=== PATIENT | female | born 1955 | race Caucasian/White ===

== ENCOUNTER 2020-09-02 14:12 | Outpatient (REF) | payer MEDICARE, SELFPAY ==
--- NOTE | 2020-09-02 | MM_ITS ---
EXAMINATION: MM SCREENING DIGITAL BREAST TOMOSYNTHESIS, BILATERAL CLINICAL INFORMATION: Screening. Asymptomatic. The lifetime risk of breast cancer based on the Tyrer-Cuzick Model is 5%. COMPARISON: Mammography: 05/04/2019, 09/11/2017 TECHNIQUE: Digital breast tomosynthesis is performed in both the craniocaudal and mediolateral oblique views along with computer-aided detection (CAD). Synthesized 2D images are generated from the tomosynthesis. FINDINGS: There are scattered areas of fibroglandular density (ACR BI-RADS breast composition Category b). There are no significant masses, abnormal calcifications, or other abnormalities. No significant changes from prior exam. IMPRESSION: No mammographic evidence of malignancy. ASSESSMENT: BI-RADS 1: Negative RECOMMENDATION: Routine annual mammography screening. This patient's information was entered into a reminder system with a target due date for their next mammogram.
== END 2020-09-02 14:13 | disposition home or self-care (01) ==
LOC: HO.MAMMO 14:12
PROVIDERS: PCP Radiology Diagnostic Radiology; Visit Provider Internal Medicine
DX: Z12.31 Encounter for screening mammogram for malignant neoplasm of breast (principal)
CPT/HCPCS: 77063; 77067

== ENCOUNTER → 2020-09-13 10:09 | Outpatient (BNVA) | payer MEDICARE, SELFPAY | PROVIDERS: PCP Internal Medicine; Referring Provider Internal Medicine; Visit Provider Orthopaedic Surgery | DX: M70.61 Trochanteric bursitis, right hip (principal); M16.11 Unilateral primary osteoarthritis, right hip; M54.30 Sciatica, unspecified side | CPT/HCPCS: 20610; 99214; J1040 ==

== ENCOUNTER 2020-10-03 12:06 | Outpatient (REF) | payer MEDICARE, SELFPAY ==
[2020-10-03 13:39] LABS: MANUAL DIFF FLAG NO
[2020-10-03 13:51] LABS: Basophils Absolute Auto 0.1 X10*3/uL (0.0-0.2); Basophils Percent Auto 0.8 % (0-2); Eosinophils Absolute Auto 0.2 X10*3/uL (0.0-0.4); Eosinophils Percent Auto 2.5 % (0-4); Hematocrit 44.4 % (37-47); Hemoglobin 14.2 g/dl (12.0-16.0); Imm Gran Abs Auto 0.02 X10*3/uL (0.00-0.03); Imm Gran Pct Auto 0.3 % (0.0-0.4); Lymphocytes Percent Auto 31.3 % (20-40); Mean Corpuscular Volume 87.6 fL (80-98); Mean Platelet Volume 9.4 fL (9.4-12.3); Monocytes Absolute Auto 0.5 X10*3/uL (0.1-1.2); Monocytes Percent Auto 7.2 % (2-11); Neutrophils Absolute Auto 3.8 X10*3/uL (2.0-8.3); Neutrophils Percent Auto 57.9 % (45-73); Platelet Count 244 X10*3/uL (160-400); Red Blood Count 5.07 X10*6/uL (4.20-5.50); Red Cell Distribution Width 13.3 % (11.0-16.0); White Blood Count 6.5 X10*3/uL (4.8-10.8)
[2020-10-03 14:29] LABS: Alanine Aminotransferase 25 U/L (0-31); Albumin Level 4.5 g/dL (3.5-5.0); Alkaline Phosphatase 99 U/L (39-117); Amylase 72 U/L (28-100); Anion Gap 12 (12-20); Aspartate Amino Transferase 24 U/L (5-31); Bilirubin Total 0.4 mg/dL (0.0-1.0); Blood Urea Nitrogen 14 mg/dL (9-16); C Reactive Protein 0.15 mg/dL (< or = 0.50); Calcium 9.3 mg/dL (8.4-10.2); Carbon Dioxide 29 mmol/L (22-29); Chloride 101 mmol/L (96-108); Estimated Glomerular Filt Rate > 60; Glucose Random 86 mg/dL (60-115); Lipase 31 U/L (8-78); Potassium 4.8 mmol/l (3.3-5.1); Sodium 137 mmol/L (135-145)
[2020-10-04 07:55] LABS: FIT Int Ctl YES; FIT1 NEGATIVE (NEGATIVE); FIT2 NEGATIVE (NEGATIVE)
== END 2020-10-03 12:07 | disposition home or self-care (01) ==
LOC: HO.LAB 12:06
PROVIDERS: PCP Internal Medicine; Visit Provider Internal Medicine Gastroenterology
DX: K92.1 Melena (principal)
CPT/HCPCS: 36415; 80053; 82150; 82274; 83690; 85025; 86140

== ENCOUNTER 2020-10-04 12:24 | Outpatient (REF) | payer MEDICARE, SELFPAY | END 2020-10-04 12:25 | disposition home or self-care (01) | LOC: HO.LNP 12:24 | PROVIDERS: Visit Provider Internal Medicine Gastroenterology | DX: K92.1 Melena (principal) | CPT/HCPCS: 87338 ==

== ENCOUNTER 2020-11-01 13:14 | Outpatient (REF) | payer MEDICARE, SELFPAY | END 2020-11-01 13:15 | disposition home or self-care (01) | LOC: HO.LAB 13:14 | PROVIDERS: Visit Provider Internal Medicine | DX: Z20.828 Contact with and (suspected) exposure to other viral communicable diseases (principal) | CPT/HCPCS: C9803; U0003 ==

== ENCOUNTER → 2021-01-25 12:59 | Outpatient (BNVA) | payer MEDICARE, SELFPAY | PROVIDERS: PCP Internal Medicine; Visit Provider Orthopaedic Surgery | DX: M17.11 Unilateral primary osteoarthritis, right knee (principal) | CPT/HCPCS: 20610; 99212; J1040 ==

== ENCOUNTER 2021-03-13 10:27 | Outpatient (REF) | payer MEDICARE, SELFPAY ==
[2021-03-13 11:58] LABS: MANUAL DIFF FLAG NO
[2021-03-13 12:03] LABS: Basophils Percent Auto 0.7 % (0-2); Eosinophils Absolute Auto 0.1 X10*3/uL (0.0-0.4); Eosinophils Percent Auto 1.6 % (0-4); Hematocrit 42.7 % (37-47); Hemoglobin 13.7 g/dl (12.0-16.0); Imm Gran Abs Auto 0.02 X10*3/uL (0.00-0.03); Imm Gran Pct Auto 0.3 % (0.0-0.4); Lymphocytes Absolute Auto 1.8 X10*3/uL (1.2-4.9); Lymphocytes Percent Auto 31.6 % (20-40); Mean Corpuscular HGB Conc 32.1 g/dl (31.0-35.0); Mean Corpuscular Hemoglobin 28.1 pg (27.0-33.0); Mean Corpuscular Volume 87.7 fL (80-98); Mean Platelet Volume 9.7 fL (9.4-12.3); Monocytes Absolute Auto 0.4 X10*3/uL (0.1-1.2); Monocytes Percent Auto 6.6 % (2-11); Neutrophils Absolute Auto 3.4 X10*3/uL (2.0-8.3); Neutrophils Percent Auto 59.2 % (45-73); Platelet Count 252 X10*3/uL (160-400); Red Blood Count 4.87 X10*6/uL (4.20-5.50); Red Cell Distribution Width 13.5 % (11.0-16.0); White Blood Count 5.7 X10*3/uL (4.8-10.8)
[2021-03-13 12:31] LABS: Alanine Aminotransferase 20 U/L (0-31); Albumin Level 4.3 g/dL (3.5-5.0); Alkaline Phosphatase 105 U/L (39-117); Anion Gap 15 (12-20); Aspartate Amino Transferase 19 U/L (5-31); Bilirubin Total 0.6 mg/dL (0.0-1.0); Blood Urea Nitrogen 14 mg/dL (9-16); Calcium 9.5 mg/dL (8.4-10.2); Carbon Dioxide 26 mmol/L (22-29); Chloride 107 mmol/L (96-108); Cholesterol 237 mg/dL; Estimated Glomerular Filt Rate > 60; Glucose Random 83 mg/dL (60-115); HDL Cholesterol 54 mg/dL; LDL Cholesterol Calculated 149 mg/dl; Magnesium 2.2 mg/dL (1.6-2.6); Potassium 4.5 mmol/L (3.3-5.1); Sodium 143 mmol/L (135-145); Total Protein 6.7 g/dL (6.5-8.0); Triglycerides 173 mg/dL
[2021-03-13 12:42] LABS: Thyroid Stimulating Hormone 2.33 uIU/mL (0.32-4.0); Vitamin D 25-OH Total 50.2 ng/mL (>30)
[2021-03-13 13:03] LABS: Vitamin B12 1660 pg/mL (200-900)
== END 2021-03-13 10:28 | disposition home or self-care (01) ==
LOC: HO.LAB 10:27
PROVIDERS: PCP Internal Medicine; Visit Provider Internal Medicine
DX: R60.0 Localized edema (principal); R53.81 Other malaise; R53.83 Other fatigue; E78.2 Mixed hyperlipidemia; Z79.899 Other long term (current) drug therapy; E55.9 Vitamin D deficiency, unspecified; E53.8 Deficiency of other specified B group vitamins; T14.8XXA Other injury of unspecified body region, initial encounter
CPT/HCPCS: 36415; 80053; 80061; 82306; 82607; 83735; 84443; 85025

== ENCOUNTER 2021-06-27 11:13 | Outpatient (REF) | payer MEDICARE, SELFPAY ==
--- NOTE | ~2021-06-27 | XR_ITS ---
EXAMINATION: XR HIP, RIGHT CLINICAL INFORMATION: M25.552 - Pain in left hip. COMPARISON: Radiographs pelvis and right hip 09/01/2019. TECHNIQUE: AP view of the pelvis is performed along with AP and frog-lateral projections of the right hip for a total of 3 views. FINDINGS: The bony pelvis is intact. There is no fracture or diastases of the SI joints or pubis. Degenerative changes are again noted lower lumbar spine with disc narrowing L4-L5 and L5-S1. There is chronic osteitis pubis again seen. Right hip shows prominent osteoarthritic changes with marked joint narrowing, greatest superiorly. There is subchondral sclerosis and subchondral geodes. Spurring is seen at the acetabular rim and mild spurring base femoral head. Degenerative changes have progressed since 2019. There is some mild buttressing along the femoral neck again noted. There are also osteoarthritic changes left hip of lesser severity. XR/XR hip RT w PEL1V IMPRESSION: 1. Severe osteoarthritis right hip, increased since prior imaging 2019. 2. Chronic osteitis pubis. Osteoarthritis left hip and degenerative changes lumbosacral spine.
== END 2021-06-27 11:14 | disposition home or self-care (01) ==
LOC: HO.HOSX 11:13
PROVIDERS: Visit Provider Orthopaedic Surgery
DX: M16.11 Unilateral primary osteoarthritis, right hip (principal)
CPT/HCPCS: 73502; 99212

== ENCOUNTER → 2021-08-17 11:30 | Outpatient (BNVA) | payer MEDICARE, SELFPAY | PROVIDERS: PCP Internal Medicine; Visit Provider Orthopaedic Surgery | DX: M16.11 Unilateral primary osteoarthritis, right hip (principal) | CPT/HCPCS: 99212 ==

== ENCOUNTER → 2021-08-22 11:02 | Outpatient (BNVA) | payer MEDICARE, SELFPAY | PROVIDERS: PCP Internal Medicine; Visit Provider Orthopaedic Surgery ==

== ENCOUNTER → 2021-09-28 13:50 | Outpatient (BNVA) | payer MEDICARE, SELFPAY | PROVIDERS: Visit Provider Physician Assistant | DX: M16.11 Unilateral primary osteoarthritis, right hip (principal) | CPT/HCPCS: 99212 ==

== ENCOUNTER 2021-10-04 06:44 | Day surgery (SDC) | payer MEDICARE, SELFPAY ==
[2021-09-28 12:23] VITALS: BP 118/58; PULSE 92; RESP 18; O2SAT 97; BMI 32.4
--- NOTE | 2021-09-28 12:41 | P.CONAN_ITS ---
Documented by User: Charley Gama NP 09/28/21 13:14 HPI - Anesthesia Eval Consult details Narrative: 66yo F for Right Hip Total Replacement [facility] Active Problems Active Problems: All Active Problems (Updated 09/28/21 @ 12:16 by Scarlett Weston RN) Trochanteric bursitis, right hip (Acute) Primary localized osteoarthritis of right hip (Acute) Primary osteoarthritis of right knee (Acute) Past Medical History Medical History Anxiety Basal cell carcinoma COVID-19 vaccine series completed Depression Fluid retention in legs GERD (gastroesophageal reflux disease) Hiatal hernia Hypertension Hypoglycemia Lumbar herniated disc Macular degeneration Osteoarthritis Pancreatitis Renal calculi Scoliosis Family History Family History Father Cancer Mother No problems noted. Family history of problems with anesthesia: No Surgical History Surgical History H/O colonoscopy History of section History of cholecystectomy History of esophagogastroduodenoscopy (EGD) History of hysterectomy History of nasal septoplasty History of total left knee replacement History of Problems with Anesthesia: No Social History Social History Are you a primary resident care manager to a significant other at home: No Do you presently have visiting nurse or other home services: No Unable to assess alcohol history related to: Unknown Patient Tobacco Use Status: Former Tobacco user Quit Date: age 31 Tobacco use type: Cigarette Use of substances other than those prescribed or required for medical reasons: No Have you been hit, kicked, punched, or otherwise hurt by someone within the past year? 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 Narrative Narrative: No recent illness No CP/SOB with stairs, grocery shopping with cart Meds Allergies Allergy/AdvReac Type Severity Reaction Status Date / Time amoxicillin [AMOXICILLIN] Allergy Severe severe Verified 10/04/21 06:46 vomiting pumpkin Allergy Intermediate Difficulty Verified 10/04/21 06:46 Breathing adhesive tape AdvReac Intermediate rash Verified 10/04/21 06:46 hydrocodone AdvReac Intermediate dizziness, Verified 10/04/21 06:46 disorientation Home Medications Medication Instructions Recorded Confirmed Last Taken Type paroxetine HCl 40 mg tablet 40 mg PO BEDTIME 08/27/20 09/28/21 Unknown History furosemide 20 mg tablet (Lasix) 20 mg PO QPM 09/13/20 09/28/21 Unknown History alprazolam 0.25 mg tablet 0.25 mg PO DAILY PRN 09/27/21 09/28/21 Unknown History aspirin 81 mg tablet,delayed 81 mg PO BEDTIME 09/27/21 10/04/21 09/27/21 History release cholecalciferol (vitamin D3) 125 125 mcg PO DAILY 09/27/21 09/28/21 Unknown History mcg (5,000 unit) tablet (Vitamin D3) flaxseed oil 1,000 mg capsule 1,000 mg PO DAILY 09/27/21 09/28/21 Unknown History vitamins A,C,L-hjzj-bhgfro 14,320 1 cap PO BEDTIME 09/27/21 09/28/21 Unknown History unit-226 mg-200 unit capsule (PreserVision AREDS) cyanocobalamin (vitamin B-12) 2,500 mcg SUBLINGUAL QAM 09/28/21 09/28/21 Unknown History 2,500 mcg sublingual tablet (Vitamin B-12) Exam Exam Date and Time: September 28, 2021 1241 Height,Weight and Vital Signs: Height 5 ft 6 in Weight 91.172 kg Last Vital Signs Pulse 92 09/28/21 12:23 Resp 18 09/28/21 12:23 BP 118/58 L 09/28/21 12:23 Pulse Ox 97 09/28/21 12:23 Pertinent Lab Results Pertinent Lab Results: Labs at PCP 08/2021 (on chart) CMP and CBC WNL (mildly elevated Alk Phos @ 126, nml range 39-117) Narrative Narrative: EKG 08/2021 @ PCP NSR Airway Mallampati Class: I TM Dist: >3cm Neck ROM: Full Loose/Missing/Broken Teeth: Yes (Upper right temporary filling, 2xpulled teeth) Heart: RRR Lungs: CTAB Assessment and Plan Assessment Anesthesia Assessment: Anesthesia Plan Discussed and PAT Visit Final Anesthetic Review Family History of Problems with Anesthesia: No History of Problems with Anesthesia: No Documented by User: Amalia Montaño MD 10/04/21 08:16 PMF Active Problems Active Problems: All Active Problems (Updated 09/28/21 @ 12:16 by Scarlett Weston RN) Trochanteric bursitis, right hip (Acute) Primary localized osteoarthritis of right hip (Acute) Primary osteoarthritis of right knee (Acute) GERD, Hiatal Hernia. Not taking any medication but states I have a lot of problems with my stomach Past Medical History Medical History Anxiety Basal cell carcinoma COVID-19 vaccine series completed Depression Fluid retention in legs GERD (gastroesophageal reflux disease) Hiatal hernia Hypertension Hypoglycemia Lumbar herniated disc Macular degeneration Osteoarthritis Pancreatitis Renal calculi Scoliosis Family History Family History Father Cancer Mother No problems noted. Surgical History Surgical History H/O colonoscopy History of section History of cholecystectomy History of esophagogastroduodenoscopy (EGD) History of hysterectomy History of nasal septoplasty History of total left knee replacement Social History Social History Are you a primary resident care manager to a significant other at home: No Do you presently have visiting nurse or other home services: No Unable to assess alcohol history related to: Unknown Patient Tobacco Use Status: Former Tobacco user Quit Date: age 31 Tobacco use type: Cigarette Use of substances other than those prescribed or required for medical reasons: No Have you been hit, kicked, punched, or otherwise hurt by someone within the past year? 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 Allergies Allergy/AdvReac Type Severity Reaction Status Date / Time amoxicillin [AMOXICILLIN] Allergy Severe severe Verified 10/04/21 06:46 vomiting pumpkin Allergy Intermediate Difficulty Verified 10/04/21 06:46 Breathing adhesive tape AdvReac Intermediate rash Verified 10/04/21 06:46 hydrocodone AdvReac Intermediate dizziness, Verified 10/04/21 06:46 disorientation Home Medications Medication Instructions Recorded Confirmed Last Taken Type paroxetine HCl 40 mg tablet 40 mg PO BEDTIME 08/27/20 09/28/21 Unknown History furosemide 20 mg tablet (Lasix) 20 mg PO QPM 09/13/20 09/28/21 Unknown History alprazolam 0.25 mg tablet 0.25 mg PO DAILY PRN 09/27/21 09/28/21 Unknown History aspirin 81 mg tablet,delayed 81 mg PO BEDTIME 09/27/21 10/04/21 09/27/21 History release cholecalciferol (vitamin D3) 125 125 mcg PO DAILY 09/27/21 09/28/21 Unknown History mcg (5,000 unit) tablet (Vitamin D3) flaxseed oil 1,000 mg capsule 1,000 mg PO DAILY 09/27/21 09/28/21 Unknown History vitamins A,C,R-yjrm-wihgov 14,320 1 cap PO BEDTIME 09/27/21 09/28/21 Unknown History unit-226 mg-200 unit capsule (PreserVision AREDS) cyanocobalamin (vitamin B-12) 2,500 mcg SUBLINGUAL QAM 09/28/21 09/28/21 Unknown History 2,500 mcg sublingual tablet (Vitamin B-12) Exam Height,Weight and Vital Signs: Height 5 ft 6 in Weight 91.172 kg Last Vital Signs Pulse 92 09/28/21 12:23 Resp 18 09/28/21 12:23 BP 118/58 L 09/28/21 12:23 Pulse Ox 97 09/28/21 12:23 Airway Mallampati Class: II Assessment and Plan Assessment Anesthesia Assessment: Chart Reviewed Final Anesthetic Review NPO: Yes ASA Class: II Final Preanesthetic Review: No Changes in Pt Med Stat, Meds/Allgs Chart Reviewed, Consent Obtained/Reviewed and Anes Risks/Benef Reviewed Patient Risk: Intermediate Procedure Risk: Low Assessment/Block/Sedation in SS: Assess/Block/Sedation-SS Anesthetic Plan Anesthetic Plan: GA Disposition: Standard PACU and Inp. Admit - Standard Bed
[2021-09-28 14:34] LABS: MRSA Nasal PCR NEGATIVE (Negative); SA Nasal PCR NEGATIVE (Negative)
[2021-10-04] VITALS (20 sets, daily range): BP systolic 99–156; BP diastolic 54–87; PULSE 88–119; RESP 10–20; TEMP 36.1–36.8; O2SAT 92–99; BMI 31.8
--- NOTE | ~2021-10-04 | XR_ITS ---
EXAMINATION: XR PELVIS CLINICAL INFORMATION: Status post right total hip arthroplasty COMPARISON: 06/27/2021 TECHNIQUE: AP view of the pelvis. FINDINGS: The right femoral head prosthesis is well centered within the acetabular cup, which exhibits normal lateral version and anteversion. The tip of the noncemented femoral stem is well-positioned in the medullary cavity of the proximal femoral diaphysis. No endosteal scalloping or fracture around the femoral stem. There is postoperative soft tissue emphysema of the right hip. Moderate osteoarthritis of the left hip and pubic symphysis. XR/XR pelvis 1-2V IMPRESSION: * Satisfactory position and alignment of components of the right total hip arthroplasty. No periprosthetic fracture. * Moderate osteoarthritis of the left hip.
--- NOTE | 2021-10-04 07:01 | PC.NURSE ---
Vancomycin dose of 1500mg IV verified with Mio from Pharmacy.
[2021-10-04 07:23] LABS: IDNOW Serial# 9DD0AD1C
[2021-10-04 07:24] LABS: COVID-19 Test Negative (Negative)
[2021-10-04] MEDS: oxyCODONE HCl ER 10 MG TAB.ER.12H PO ×2 (07:27→21:02)
--- NOTE | 2021-10-04 07:27 | MHC.SHP ---
Pre-Procedural Eval Section A Date of Service: 10/04/21 The patient is an INPATIENT: No Changes since office visit: Yes Patient answered all questions; No Cold of Flu in the past 2 weeks, No New Medical Problems and No Changes in Medication The History & Physical has been completed within 30 days and I have reviewed it.: Yes Section B Chief Complaint: RT ESSIE Allergies: Allergies Allergy/AdvReac Type Severity Reaction Status Date / Time amoxicillin [AMOXICILLIN] Allergy Severe severe Verified 10/04/21 06:46 vomiting pumpkin Allergy Intermediate Difficulty Verified 10/04/21 06:46 Breathing adhesive tape AdvReac Intermediate rash Verified 10/04/21 06:46 hydrocodone AdvReac Intermediate dizziness, Verified 10/04/21 06:46 disorientation Plan I have reviewed the history and physical and performed a pertinent physical examination on my patient. No changes have occurred unless specified.
[2021-10-04] MEDS: vancomycin HCL 1,500 MG in 0.9 % Sodium Chloride 500 ML 333.33 MG IV ×2 (07:36→19:29)
[2021-10-04] MEDS: Lactated Ringers 1,000 ML 100 ML IVCONT (07:38)
--- NOTE | 2021-10-04 09:45 | P.BOP_ITS ---
Brief Operative Note Date of Service: 10/04/21 Pre-op diagnosis: right hip OA Post-op diagnosis: same Procedure: Right ESSIE Implants: Srinivasa trident2 #54/ 20 deg liner Strker Accolade2 #5 127 deg with + 5 ceramic 36 Surgeon: Joaquín Martin MD Anesthesia: GETA and local Was an Corporate Giving Manager used for this Procedure?: Yes Corporate Giving Manager: Damari Madrigal Estimated blood loss (mL): 250 IV fluids (mL): 800 Pathology: other Condition: stable Disposition: PACU
--- NOTE | 2021-10-04 10:39 | P.OP_ITS ---
Operative Note Operative Note Date of Service: 10/04/21 Narrative: Pre-op diagnosis: right hip OA Post-op diagnosis: same Procedure: Right ESSIE Implants: Srinivasa trident2 #54/ 20 deg liner Streloisa Accolade2 #5 127 deg with + 5 ceramic 36 Surgeon: Joaquín Martin MD Anesthesia: GETA and local Was an Heat Sealing Machine Operator used for this Procedure?: Yes Heat Sealing Machine Operator: Damari Madrigal Estimated blood loss (mL): 250 IV fluids (mL): 800 Pathology: other Condition: stable Disposition: PACU Procedure in detail: Patient was brought into the operating room and placed in the left lateral decubitus position. All bony prominences were well padded and the limb was prepped and draped in standard sterile fashion. Time-out was called to identify proper site procedure proper surgeon IV antibiotics and 1 g of transaxemic acid were administered. I began by making a curvilinear incision over the posterolateral aspect of the greater trochanter. Dissection was taken down to the tensor fascia which was incised in line with the incision and a Charnley retractor was placed. Cautery was used to maintain hemostasis. A werewolf device was also used. The hip was internally rotated and the external rotators were identified. The vessels were cauterized and a full-thickness capsular/external rotator layer was developed starting just proximal to the piriformis. This layer was tagged and a dull Hohmann retractor was placed underneath the neck in the hip was dislocated. The head waseburnated and defromed. A neck cut was made 1 cm proximal to the lesser trochanter and the head and neck were removed and measured on the back table. I then placed my anterior-posterior acetabular retractors and performed a labrectomy. The cup was scelrotic and woprn superiorly.. I then started with a 44 and sequentially reamed up to a size 54 and impacted a 54 at approximately 45 degrees of inclination and 25 degrees of version. I then placed a 20 deg posterior lipped liner and turned my attention to the femur. I identified the piriformis insertion and used this as a starting point for my edwar cutter. The medius tendon was protected with a Hibs retractor. I then used a Charnley awl to identify the canal and a curved curette to remove the lateral bone. I irrigated copiously. I then sequentially broached in the patient's natural version to a size #5/127 deg and placed my trial implants. Using a trail head I took the hip through range of motion. I was very satisfied with the stability and length. Therefore I removed all instrumentation and copiously irrigated. I placed my final femoral implant and again took the hip through range of motion with various head sizes and was satisfied with the stability and length using a +5/36. I then irrigated for 3 minutes with iodine and placed 1 g of local tranaxemic acid. I then performed a capsular closure with 2.0 fiberwire, Tyrone's fascia with 0 Vicryl, subcuticular with 2-0 Vicryl and the skin with misty. Patient was placed into a sterile dressing. Radiographs were obtained at the completion of the case and I was satisfied with the component position. Patient was extubated brought to the recovery room in stable condition.
[2021-10-04] MEDS: HYDROmorphone HCl 0.5 MG/0.5 ML SYRINGE IVPUSH ×3 (10:43→11:12)
[2021-10-04] MEDS: oxyCODONE HCl Immed Release 5 MG TABLET 10 MG PO (12:27)
[2021-10-04] MEDS: Acetaminophen 325 MG TABLET 650 MG PO (12:28)
[2021-10-04] MEDS: Dextrose 5 % and 0.45 % NaCl 1,000 ML 80 ML IVCONT (12:31)
[2021-10-04] MEDS: HYDROmorphone HCl 0.5 MG/0.5 ML SYRINGE 0.25 MG IVPUSH ×2 (15:39→21:02)
[2021-10-04] MEDS: oxyCODONE HCl Immed Release 5 MG TABLET PO (19:31)
[2021-10-04] MEDS: 0.9 % Sodium Chloride Flush 3 ML SYRINGE IVFLUSH (19:34)
[2021-10-04] MEDS: Docusate Sodium 100 MG CAPSULE PO (21:02)
[2021-10-04] MEDS: Celecoxib 200 MG CAPSULE PO (21:02)
[2021-10-05] VITALS (9 sets, daily range): BP systolic 98–131; BP diastolic 52–62; PULSE 74–94; RESP 15–18; TEMP 36.3–37.3; O2SAT 95–98
[2021-10-05] MEDS: Dextrose 5 % and 0.45 % NaCl 1,000 ML 80 ML IVCONT ×2 (01:45→13:55)
[2021-10-05 06:16] LABS: MANUAL DIFF FLAG NO
[2021-10-05 06:19] LABS: Basophils Percent Auto 0.1 % (0-2); Hematocrit 32.6 % (37.0-47.0); Hemoglobin 10.3 g/dl (12.0-16.0); Imm Gran Abs Auto 0.04 X10*3/uL (0.00-0.03); Imm Gran Pct Auto 0.4 % (0.0-0.4); Lymphocytes Absolute Auto 1.1 X10*3/uL (1.2-4.9); Lymphocytes Percent Auto 10.4 % (20-40); Mean Corpuscular HGB Conc 31.6 g/dl (31.0-35.0); Mean Corpuscular Hemoglobin 28.3 pg (27.0-33.0); Mean Corpuscular Volume 89.6 fL (80.0-98.0); Mean Platelet Volume 9.1 fL (9.4-12.3); Monocytes Absolute Auto 0.7 X10*3/uL (0.1-1.2); Monocytes Percent Auto 6.6 % (2-11); Neutrophils Absolute Auto 8.5 x10*3/uL (2.0-8.3); Neutrophils Percent Auto 82.5 % (45-73); Platelet Count 190 X10*3/uL (160-400); Red Blood Count 3.64 X10*6/uL (4.20-5.50); Red Cell Distribution Width 13.2 % (11.0-16.0); White Blood Count 10.3 X10*3/uL (4.8-10.8)
[2021-10-05 06:36] LABS: Anion Gap 10 (12-20); Blood Urea Nitrogen 9 mg/dL (9-16); Calcium 8.6 mg/dL (8.4-10.2); Carbon Dioxide 25 mmol/L (22-29); Chloride 107 mmol/L (96-108); Creatinine Clr Calc Pharmacy 104.5; Estimated Glomerular Filt Rate > 60; Glucose Fasting 116 mg/dL (60-99); Potassium 3.9 mmol/L (3.3-5.1); Sodium 138 mmol/L (135-145)
--- NOTE | 2021-10-05 07:43 | HO.POSTANES ---
Post Anesthesia Evaluation Post Anesthesia Evaluation Vital Signs: Vital Signs Temp Pulse Resp BP Pulse Ox 10/05/21 04:00 98.1 F 74 16 108/54 L 98 10/05/21 00:00 98.1 F 92 16 98/55 L 98 Anesthesia: General Mental Status: Awake Pain Control: Satisfactory Nausea/Vomiting: None Hydration: Adequate Anesthesia-Related Issues: No Anes. Related Issues
[2021-10-05] MEDS: oxyCODONE HCl ER 10 MG TAB.ER.12H PO ×2 (08:19→20:09)
[2021-10-05] MEDS: Celecoxib 200 MG CAPSULE PO ×2 (08:19→20:09)
[2021-10-05] MEDS: Docusate Sodium 100 MG CAPSULE PO ×2 (08:19→20:09)
[2021-10-05] MEDS: 0.9 % Sodium Chloride Flush 3 ML SYRINGE IVFLUSH (08:20)
--- NOTE | 2021-10-05 08:57 | PM.PNORT ---
Subjective Subjective Date of Service: 10/05/21 Interval history: POD1 s/p RTHA. Patient resting comfortably in the chair working with P.T. No overnight events. Pain is managed. No additional complaints. Physical Exam Vital Signs: Vital Signs: Last Vital Signs Temp 97.8 F 10/05/21 08:00 Pulse 86 10/05/21 08:00 Resp 18 10/05/21 08:00 BP 112/62 10/05/21 08:00 Pulse Ox 95 10/05/21 08:00 Body Mass Index 31.8 Const: General: cooperative, healthy appearing and no acute distress Resp: Effort & Inspection: normal respiratory effort and able to speak in complete sentences Cardio: Rate: regular rate Peripheral pulses: Peripheral pulses 2+ throughout GI: Palpation (GI): Soft to palpation Skin: Lesions: no lesions Rashes: no rashes Extrem: Other: Right hip Aquacel is clean, dry, and intact. Patient is able to dorsiflex and plantarflex. Sensation intact. Procedures Date of Service Date of Service: 10/05/21 Progress Note: A&P Assessment and plan (1) Status post total replacement of right hip: Status: Acute Assessment and Plan: Continue pain mgmnt Begin ASA for dvt ppx begin PT for RTHA Dispo planning-Pending PT eval, pain mgmnt Fall Risk Details Current Medications: Current Medications Acetaminophen (Acetaminophen 325 Mg Tablet) 650 mg PO Q6H PRN PRN Reason: Pain, Mild (Pain Scale 1-3) Last Admin: 10/04/21 12:28 Dose: 650 mg Documented by: Celecoxib (Celecoxib 200 Mg Capsule) 200 mg PO BID [facility] Last Admin: 10/05/21 08:19 Dose: 200 mg Documented by: Docusate Sodium (Docusate Sodium 100 Mg Capsule) 100 mg PO BID [facility] Last Admin: 10/05/21 08:19 Dose: 100 mg Documented by: Fentanyl (Fentanyl Citrate/Pf 100 Mcg/2 Ml Vial) 50 mcg IVPUSH Q5M PRN; Protocol PRN Reason: Pain, Moderate (Pain Scale 4-6 Hydromorphone HCl (Hydromorphone Hcl 0.5 Mg/0.5 Ml Syringe) 0.5 mg IVPUSH Q5M PRN; Protocol PRN Reason: Pain, Severe (Pain Scale 7-10) Last Admin: 10/04/21 11:12 Dose: 0.5 mg Documented by: Hydromorphone HCl (Hydromorphone Hcl 0.5 Mg/0.5 Ml Syringe) 0.5 mg IVPUSH Q10M PRN; Protocol PRN Reason: Pain, Moderate (Pain Scale 4-6 Hydromorphone HCl (Hydromorphone Hcl 0.5 Mg/0.5 Ml Syringe) 0.25 mg IVPUSH Q4H PRN; Protocol PRN Reason: Pain, Severe (Pain Scale 7-10) Last Admin: 10/04/21 21:02 Dose: 0.25 mg Documented by: Promethazine HCl 6.25 mg/ (Sodium Chloride) 50.25 mls @ 201 mls/hr IV ONCE PRN PRN Reason: Nausea and Vomiting Dextrose/Sodium Chloride (D51/2ns) 1,000 mls @ 80 mls/hr IVCONT .[id number] [facility] Last Admin: 10/05/21 01:45 Dose: 80 mls/hr Documented by: Ondansetron HCl (Ondansetron Hcl 4 Mg/2 Ml Vial) 4 mg IVPUSH ONCE PRN PRN Reason: Nausea and Vomiting Ondansetron HCl (Ondansetron Hcl 4 Mg/2 Ml Vial) 4 mg IVPUSH Q8H PRN PRN Reason: Nausea and Vomiting Oxycodone HCl (Oxycodone Hcl Immed Release 5 Mg Tablet) 5 mg PO Q4H PRN PRN Reason: Pain, Moderate (Pain Scale 4-6 Last Admin: 10/04/21 19:31 Dose: 5 mg Documented by: Oxycodone HCl (Oxycodone Hcl Er 10 Mg Tab.Er.12h) 10 mg PO BID [facility] Last Admin: 10/05/21 08:19 Dose: 10 mg Documented by: Pharmacy Consult (Consult Rx Vancomycin Dosing) 1 each MISCELLANE DAILY PRN PRN Reason: Consult order Sodium Chloride (0.9 % Sodium Chloride Flush 3 Ml Syringe) 3 ml IVFLUSH QSHIFT [facility] Last Admin: 10/05/21 08:20 Dose: 3 ml Documented by: Time Spent With Patient Time: Total time spent is greater than 50% in coordination of care (as documented) at patient's floor/unit and/or counseling patient: Time with patient: less than 15 minutes Quality Stroke Does the patient have a stroke diagnosis?: No VTE Prior VTE?: No VTE Risk Level:: Surgical - very high VTE Device Contraindication: N/A - Device Ordered VTE Drug Contraindication: N/A - Med Ordered
--- NOTE | 2021-10-05 10:01 | MHC.CM.PN ---
IMM 10/05/21, EMR REVIEWED, PT ADMITTED S/P RIGHT ESSIE, PT REPORTS SHE LIVES W/HER , IS INDEPENDENT W/ALL CARE, DME INCULDES A TOILET RAISER AND WILL BE PICKING UP A WALKER AT [facility] TOMORROW BEFORE PT IS DISCHARGED, PT WOULD LIKE HOME SERVICES, NO STR, PT VERIFIES PCP DENIZ RUIZ THROUGH [facility], PT REPORTS SHE DOES HAVE A HCP AND CM WILL CONTACT ORTH CM TO OBTAIN COPY. D/C PLAN: [facility] FOR HOME OT/PT, [facility] FOR ANTICOAG, FAMILY FOR TRANSPORT
[2021-10-05] MEDS: Aspirin 325 MG TABLET PO ×2 (10:10→20:09)
--- NOTE | 2021-10-05 11:14 | PHA.MEDREC ---
Pharmacy Consult ? Medication Reconciliation Pharmacy has completed the medication reconciliation. There are no remarkable issues for provider's attention. Marie Patterson, AidanD
[2021-10-05] MEDS: HYDROmorphone HCl 0.5 MG/0.5 ML SYRINGE 0.25 MG IVPUSH ×3 (11:41→21:22)
--- NOTE | 2021-10-05 11:41 | P.CONIM_ITS ---
History of Present Illness Data of Consult Service Date: 10/05/21 Primary Care Provider: Unknown Physician HPI Reason for consult: Routine Medical Management This is a 66-year-old female with a past medical history significant for pancreatitis (appears to be a path a, reports that she has been worked up but no cause has been found), hyperlipidemia who is admitted post-op after R ESSIE. Medical services consulted for Routine medical management Pt seen and examined on Med/Surg. She reported pain (had just worked with PT) but otherwise no complaints. Review of Systems Review of Systems: General - no fevers or chills Cardiovascular - no chest pain Respiratory - no shortness of breath or cough Abdominal- no abdominal pain, nausea, vomiting, diarrhea otherwise negative [facility] Medical History Anxiety Basal cell carcinoma COVID-19 vaccine series completed Depression Fluid retention in legs GERD (gastroesophageal reflux disease) Hiatal hernia Hypertension Hypoglycemia Lumbar herniated disc Macular degeneration Osteoarthritis Pancreatitis Renal calculi Scoliosis Family History Father Cancer Mother No problems noted. Surgical History H/O colonoscopy History of section History of cholecystectomy History of esophagogastroduodenoscopy (EGD) History of hysterectomy History of nasal septoplasty History of total left knee replacement Social History Are you a primary health care facility administrator to a significant other at home: No Do you presently have visiting nurse or other home services: No Unable to assess alcohol history related to: Unknown Patient Tobacco Use Status: Former Tobacco user Quit Date: age 31 Tobacco use type: Cigarette Use of substances other than those prescribed or required for medical reasons: No Currently Displaying Signs/Symptoms of Drug Intoxication Withdrawal: No Have you been hit, kicked, punched, or otherwise hurt by someone within the past year? 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 Allergies Allergy/AdvReac Type Severity Reaction Status Date / Time amoxicillin [AMOXICILLIN] Allergy Severe severe Verified 10/04/21 06:46 vomiting pumpkin Allergy Intermediate Difficulty Verified 10/04/21 06:46 Breathing adhesive tape AdvReac Intermediate rash Verified 10/04/21 06:46 hydrocodone AdvReac Intermediate dizziness, Verified 10/04/21 06:46 disorientation Active Medications: Current Medications Acetaminophen (Acetaminophen 325 Mg Tablet) 650 mg PO Q6H PRN PRN Reason: Pain, Mild (Pain Scale 1-3) Last Admin: 10/04/21 12:28 Dose: 650 mg Documented by: Alprazolam (Alprazolam 0.25 Mg Tablet) 0.25 mg PO DAILY PRN PRN Reason: Anxiety Aspirin (Aspirin 325 Mg Tablet) 325 mg PO BID [facility] Last Admin: 10/05/21 10:10 Dose: 325 mg Documented by: Celecoxib (Celecoxib 200 Mg Capsule) 200 mg PO BID [facility] Last Admin: 10/05/21 08:19 Dose: 200 mg Documented by: Docusate Sodium (Docusate Sodium 100 Mg Capsule) 100 mg PO BID [facility] Last Admin: 10/05/21 08:19 Dose: 100 mg Documented by: Fentanyl (Fentanyl Citrate/Pf 100 Mcg/2 Ml Vial) 50 mcg IVPUSH Q5M PRN; Protocol PRN Reason: Pain, Moderate (Pain Scale 4-6 Furosemide (Furosemide 20 Mg Tablet) 20 mg PO DAILY@1700 TAYLA; Protocol Hydromorphone HCl (Hydromorphone Hcl 0.5 Mg/0.5 Ml Syringe) 0.5 mg IVPUSH Q5M PRN; Protocol PRN Reason: Pain, Severe (Pain Scale 7-10) Last Admin: 10/04/21 11:12 Dose: 0.5 mg Documented by: Hydromorphone HCl (Hydromorphone Hcl 0.5 Mg/0.5 Ml Syringe) 0.5 mg IVPUSH Q10M PRN; Protocol PRN Reason: Pain, Moderate (Pain Scale 4-6 Hydromorphone HCl (Hydromorphone Hcl 0.5 Mg/0.5 Ml Syringe) 0.25 mg IVPUSH Q4H PRN; Protocol PRN Reason: Pain, Severe (Pain Scale 7-10) Last Admin: 10/04/21 21:02 Dose: 0.25 mg Documented by: Promethazine HCl 6.25 mg/ (Sodium Chloride) 50.25 mls @ 201 mls/hr IV ONCE PRN PRN Reason: Nausea and Vomiting Dextrose/Sodium Chloride (D51/2ns) 1,000 mls @ 80 mls/hr IVCONT .[id number] [facility] Last Admin: 10/05/21 01:45 Dose: 80 mls/hr Documented by: Ondansetron HCl (Ondansetron Hcl 4 Mg/2 Ml Vial) 4 mg IVPUSH ONCE PRN PRN Reason: Nausea and Vomiting Ondansetron HCl (Ondansetron Hcl 4 Mg/2 Ml Vial) 4 mg IVPUSH Q8H PRN PRN Reason: Nausea and Vomiting Oxycodone HCl (Oxycodone Hcl Immed Release 5 Mg Tablet) 5 mg PO Q4H PRN PRN Reason: Pain, Moderate (Pain Scale 4-6 Last Admin: 10/04/21 19:31 Dose: 5 mg Documented by: Oxycodone HCl (Oxycodone Hcl Er 10 Mg Tab.Er.12h) 10 mg PO BID [facility] Last Admin: 10/05/21 08:19 Dose: 10 mg Documented by: Paroxetine HCl (Paroxetine Hcl 40 Mg Tablet) 40 mg PO BEDTIME [facility] Pharmacy Consult (Consult Rx Vancomycin Dosing) 1 each MISCELLANE DAILY PRN PRN Reason: Consult order Pharmacy Consult (Consult Rx Perform Med Rec) 1 each MISCELLANE ONCE PRN PRN Reason: Consult order Sodium Chloride (0.9 % Sodium Chloride Flush 3 Ml Syringe) 3 ml IVFLUSH QSHIFT [facility] Last Admin: 10/05/21 08:20 Dose: 3 ml Documented by: Home Medications Medication Instructions Recorded Confirmed Last Taken Type paroxetine HCl 40 mg tablet 40 mg PO BEDTIME 08/27/20 10/05/21 10/03/21 History furosemide 20 mg tablet (Lasix) 20 mg PO QPM 09/13/20 10/05/21 10/03/21 History alprazolam 0.25 mg tablet 0.25 mg PO DAILY PRN 09/27/21 10/05/21 Unknown History aspirin 81 mg tablet,delayed 81 mg PO BEDTIME 09/27/21 10/05/21 09/27/21 History release cholecalciferol (vitamin D3) 125 125 mcg PO DAILY 09/27/21 10/05/21 10/03/21 History mcg (5,000 unit) tablet (Vitamin D3) flaxseed oil 1,000 mg capsule 1,000 mg PO DAILY 09/27/21 10/05/21 10/03/21 History vitamins A,C,V-adua-ezaxhe 14,320 1 cap PO BEDTIME 09/27/21 10/05/21 10/03/21 History unit-226 mg-200 unit capsule (PreserVision AREDS) cyanocobalamin (vitamin B-12) 2,500 mcg SUBLINGUAL QAM 09/28/21 10/05/21 10/03/21 History 2,500 mcg sublingual tablet (Vitamin B-12) Physical Exam Vital Signs and Narrative: Vital Signs: Last Vital Signs Temp 97.8 F 10/05/21 08:00 Pulse 86 10/05/21 09:54 Resp 18 10/05/21 08:00 BP 112/62 10/05/21 09:54 Pulse Ox 95 10/05/21 09:54 Body Mass Index 31.8 Const: Other: General - no acute distress, appears comfortable Cardiovascular - regular rate and rhythm, S1-S2 Lungs - normal respiratory effort, clear to auscultation bilaterally, no wheezing Abdomen - soft, nontender, no rebound or guarding Extremities - no edema bilaterally Neuro - awake and alert, no focal deficits Results Labs CBC and Chem 7: 10/05/21 05:57 10/05/21 05:57 Labs: Laboratory Results - last 24 hr 10/05/21 10/05/21 05:57 05:57 MCV 89.6 MCH 28.3 MCHC 31.6 RDW 13.2 Plt Count 190 MPV 9.1 L Immature Gran % (Auto) 0.4 Neut % (Auto) 82.5 H Lymph % (Auto) 10.4 L [place] % (Auto) 6.6 Eos % (Auto) 0.0 Baso % (Auto) 0.1 Lymph # (Auto) 1.1 L [place] # (Auto) 0.7 Eos # (Auto) 0.0 Baso # (Auto) 0.0 Abs Immat Gran (auto) 0.04 H Absolute Neuts (auto) 8.5 H Absolute Nucleated RBC 0.000 Nucleated RBC % (auto) 0.0 Anion Gap 10 L Estim Creat Clear Calc 104.5 Estimated GFR > 60 Fasting Glucose 116 H Calcium 8.6 D Assessment and Plan (1) Status post total replacement of right hip: Status: Acute 66 yo F admitted for elective R ESSIE. Medical services consulted for routine medical management. 1. HTN on lasix -- BP on the softer side hold lasix, can resume upon discharge as BP normalizes 2. Anemia check h/h tomorrow, transfuse below 7-8 range or if symptomatic 3. Depression Paxil Medically stable, will sign off. Please re-consult if any questions.
[2021-10-05] MEDS: oxyCODONE HCl Immed Release 5 MG TABLET PO (20:08)
[2021-10-05] MEDS: ALPRAZolam 0.25 MG TABLET PO (20:09)
[2021-10-05] MEDS: PARoxetine HCL 40 MG TABLET PO (20:09)
[2021-10-06] VITALS (10 sets, daily range): BP systolic 115–122; BP diastolic 56–67; PULSE 90–98; RESP 18–20; TEMP 36.3–37.1; O2SAT 94–96
[2021-10-06] MEDS: Dextrose 5 % and 0.45 % NaCl 1,000 ML 80 ML IVCONT (01:40)
[2021-10-06] MEDS: HYDROmorphone HCl 0.5 MG/0.5 ML SYRINGE 0.25 MG IVPUSH ×2 (02:55→08:40)
[2021-10-06 06:14] LABS: MANUAL DIFF FLAG NO
[2021-10-06 06:18] LABS: Basophils Percent Auto 0.3 % (0-2); Eosinophils Percent Auto 0.5 % (0-4); Hematocrit 28.2 % (37.0-47.0); Hemoglobin 9.2 g/dl (12.0-16.0); Imm Gran Abs Auto 0.03 X10*3/uL (0.00-0.03); Imm Gran Pct Auto 0.4 % (0.0-0.4); Lymphocytes Absolute Auto 1.3 X10*3/uL (1.2-4.9); Lymphocytes Percent Auto 16.4 % (20-40); Mean Corpuscular HGB Conc 32.6 g/dl (31.0-35.0); Mean Corpuscular Hemoglobin 28.3 pg (27.0-33.0); Mean Corpuscular Volume 86.8 fL (80.0-98.0); Mean Platelet Volume 9.2 fL (9.4-12.3); Monocytes Absolute Auto 0.4 X10*3/uL (0.1-1.2); Monocytes Percent Auto 5.4 % (2-11); Platelet Count 157 X10*3/uL (160-400); Red Blood Count 3.25 X10*6/uL (4.20-5.50); Red Cell Distribution Width 13.5 % (11.0-16.0); White Blood Count 7.8 X10*3/uL (4.8-10.8)
[2021-10-06 06:38] LABS: Anion Gap 8 (12-20); Blood Urea Nitrogen 9 mg/dL (9-16); Carbon Dioxide 25 mmol/L (22-29); Chloride 109 mmol/L (96-108); Creatinine Clr Calc Pharmacy 116.5; Estimated Glomerular Filt Rate > 60; Glucose Fasting 101 mg/dL (60-99); Potassium 3.8 mmol/L (3.3-5.1); Sodium 138 mmol/L (135-145)
--- NOTE | 2021-10-06 08:00 | P.PNOP_ITS ---
Subjective Subjective Date of Service: 10/06/21 Interval history: POD 2 s/p RT ESSIE No overnight events Resting in bed, states she had increased pain over night Denies cp,sob, palpitations Physical Exam Vital Signs: Vital Signs: Last Vital Signs Temp 98.8 F 10/06/21 07:56 Pulse 90 10/06/21 07:56 Resp 20 10/06/21 07:56 BP 115/56 L 10/06/21 07:56 Pulse Ox 94 10/06/21 07:56 Body Mass Index 31.8 Const: General: cooperative, healthy appearing and no acute distress Resp: Effort & Inspection: normal respiratory effort and able to speak in complete sentences Cardio: Rate: regular rate Peripheral pulses: Peripheral pulses 2+ throughout GI: Palpation (GI): Soft to palpation Skin: General skin exam: no rashes or lesions noted Extrem: Other: bandage clean dry and intact. No erythema or effusion. Calf supple nontender. Neurovascularly intact. Procedures Date of Service Date of Service: 10/06/21 Progress Note: A&P Assessment and plan (1) Status post total replacement of right hip: Status: Acute Assessment and Plan: * Continue pain mgmnt * cont Aspirin for dvt ppx * cont PT/Ot RT ESSIE * Dispo planning-PT and pain mgmnt Fall Risk Details Current Medications: Current Medications Acetaminophen (Acetaminophen 325 Mg Tablet) 650 mg PO Q6H PRN PRN Reason: Pain, Mild (Pain Scale 1-3) Last Admin: 10/04/21 12:28 Dose: 650 mg Documented by: Alprazolam (Alprazolam 0.25 Mg Tablet) 0.25 mg PO DAILY PRN PRN Reason: Anxiety Last Admin: 10/05/21 20:09 Dose: 0.25 mg Documented by: Aspirin (Aspirin 325 Mg Tablet) 325 mg PO BID [facility]S [facility]CLUDE 234 BEDS AT [facility] Last Admin: 10/05/21 20:09 Dose: 325 mg Documented by: Celecoxib (Celecoxib 200 Mg Capsule) 200 mg PO BID COUNTS INCLUDE 234 BEDS AT THE [facility] Last Admin: 10/05/21 20:09 Dose: 200 mg Documented by: Docusate Sodium (Docusate Sodium 100 Mg Capsule) 100 mg PO BID COUNTS INCLUDE 234 BEDS AT THE [facility] Last Admin: 10/05/21 20:09 Dose: 100 mg Documented by: Fentanyl (Fentanyl Citrate/Pf 100 Mcg/2 Ml Vial) 50 mcg IVPUSH Q5M PRN; Protocol PRN Reason: Pain, Moderate (Pain Scale 4-6 Hydromorphone HCl (Hydromorphone Hcl 0.5 Mg/0.5 Ml Syringe) 0.5 mg IVPUSH Q5M PRN; Protocol PRN Reason: Pain, Severe (Pain Scale 7-10) Last Admin: 10/04/21 11:12 Dose: 0.5 mg Documented by: Hydromorphone HCl (Hydromorphone Hcl 0.5 Mg/0.5 Ml Syringe) 0.5 mg IVPUSH Q10M PRN; Protocol PRN Reason: Pain, Moderate (Pain Scale 4-6 Hydromorphone HCl (Hydromorphone Hcl 0.5 Mg/0.5 Ml Syringe) 0.25 mg IVPUSH Q4H PRN; Protocol PRN Reason: Pain, Severe (Pain Scale 7-10) Last Admin: 10/06/21 02:55 Dose: 0.25 mg Documented by: Promethazine HCl 6.25 mg/ (Sodium Chloride) 50.25 mls @ 201 mls/hr IV ONCE PRN PRN Reason: Nausea and Vomiting Dextrose/Sodium Chloride (D51/2ns) 1,000 mls @ 80 mls/hr IVCONT .[id number] COUNTS INCLUDE 234 BEDS AT THE [facility] Last Admin: 10/06/21 01:40 Dose: 80 mls/hr Documented by: Ondansetron HCl (Ondansetron Hcl 4 Mg/2 Ml Vial) 4 mg IVPUSH ONCE PRN PRN Reason: Nausea and Vomiting Ondansetron HCl (Ondansetron Hcl 4 Mg/2 Ml Vial) 4 mg IVPUSH Q8H PRN PRN Reason: Nausea and Vomiting Oxycodone HCl (Oxycodone Hcl Immed Release 5 Mg Tablet) 5 mg PO Q4H PRN PRN Reason: Pain, Moderate (Pain Scale 4-6 Last Admin: 10/05/21 20:08 Dose: 5 mg Documented by: Oxycodone HCl (Oxycodone Hcl Er 10 Mg Tab.Er.12h) 10 mg PO BID COUNTS INCLUDE 234 BEDS AT THE [facility] Last Admin: 10/05/21 20:09 Dose: 10 mg Documented by: Paroxetine HCl (Paroxetine Hcl 40 Mg Tablet) 40 mg PO BEDTIME COUNTS INCLUDE 234 BEDS AT THE [facility] Last Admin: 10/05/21 20:09 Dose: 40 mg Documented by: Pharmacy Consult (Consult Rx Vancomycin Dosing) 1 each MISCELLANE DAILY PRN PRN Reason: Consult order Pharmacy Consult (Consult Rx Perform Med Rec) 1 each MISCELLANE ONCE PRN PRN Reason: Consult order Sodium Chloride (0.9 % Sodium Chloride Flush 3 Ml Syringe) [facility] Admin: 10/05/21 23:47 Dose: Not Given Documented by: Time Spent With Patient Time: Total time spent is greater than 50% in coordination of care (as documented) at patient's floor/unit and/or counseling patient: Time with patient: less than 15 minutes Quality Stroke Does the patient have a stroke diagnosis?: No VTE Prior VTE?: No VTE Risk Level:: Surgical - very high VTE Device Contraindication: N/A - Device Ordered VTE Drug Contraindication: N/A - Med Ordered
[2021-10-06] MEDS: oxyCODONE HCl ER 10 MG TAB.ER.12H PO ×2 (08:44→20:56)
[2021-10-06] MEDS: Docusate Sodium 100 MG CAPSULE PO ×2 (08:44→20:56)
[2021-10-06] MEDS: Celecoxib 200 MG CAPSULE PO ×2 (08:45→20:56)
[2021-10-06] MEDS: Aspirin 325 MG TABLET PO ×2 (08:45→20:56)
[2021-10-06] MEDS: oxyCODONE HCl Immed Release 5 MG TABLET PO ×2 (10:04→13:56)
--- NOTE | 2021-10-06 13:05 | MHC.CM.PN ---
NURSE CRIMINAL JUDGE NOTE ELECTRONIC MEDICAL RECORD REVIEWED ALS VIA TIGER TEXT WITH THE ORTHOPEDIC SURGICAL p.a. PATIENT WILL NOT BE DISCHARGED UNTIL TOMORROW UPDATED THE KENNETH HUITRONA OF THIS DISCHARGED DAte discharge plan home sat 10/07/21 with new ref to the [facility] for home physical thearpy to start on 10/08/21Saturday transportation family pcp dr raymundo hylton patient to call for appointment to be seen 1-2 weeks post hospital discharge
[2021-10-06] MEDS: 0.9 % Sodium Chloride Flush 3 ML SYRINGE IVFLUSH (15:29)
[2021-10-06] MEDS: PARoxetine HCL 40 MG TABLET PO (20:56)
[2021-10-07] VITALS: BP 99/54; PULSE 89; RESP 18; TEMP 36.4; O2SAT 94
[2021-10-07] MEDS: 0.9 % Sodium Chloride Flush 3 ML SYRINGE IVFLUSH ×2 (00:03→09:18)
[2021-10-07 04:00] VITALS: BP 100/55; PULSE 80; RESP 18; TEMP 36.2; O2SAT 94
[2021-10-07 05:34] LABS: MANUAL DIFF FLAG NO
[2021-10-07 05:49] LABS: Basophils Percent Auto 0.2 % (0-2); Eosinophils Absolute Auto 0.2 X10*3/uL (0.0-0.4); Eosinophils Percent Auto 2.7 % (0-4); Hematocrit 28.3 % (37.0-47.0); Hemoglobin 9.2 g/dl (12.0-16.0); Imm Gran Abs Auto 0.02 X10*3/uL (0.00-0.03); Imm Gran Pct Auto 0.4 % (0.0-0.4); Lymphocytes Absolute Auto 1.8 X10*3/uL (1.2-4.9); Lymphocytes Percent Auto 31.4 % (20-40); Mean Corpuscular HGB Conc 32.5 g/dl (31.0-35.0); Mean Corpuscular Volume 89.3 fL (80.0-98.0); Mean Platelet Volume 9.4 fL (9.4-12.3); Monocytes Absolute Auto 0.5 X10*3/uL (0.1-1.2); Neutrophils Absolute Auto 3.1 x10*3/uL (2.0-8.3); Neutrophils Percent Auto 56.3 % (45-73); Platelet Count 172 X10*3/uL (160-400); Red Blood Count 3.17 X10*6/uL (4.20-5.50); Red Cell Distribution Width 13.7 % (11.0-16.0); White Blood Count 5.6 X10*3/uL (4.8-10.8)
[2021-10-07 05:56] LABS: Anion Gap 11 (12-20); Blood Urea Nitrogen 9 mg/dL (9-16); Calcium 8.7 mg/dL (8.4-10.2); Carbon Dioxide 28 mmol/L (22-29); Chloride 110 mmol/L (96-108); Estimated Glomerular Filt Rate > 60; Glucose Fasting 88 mg/dL (60-99); Potassium 5.1 mmol/L (3.3-5.1); Sodium 144 mmol/L (135-145)
[2021-10-07 08:00] VITALS: BP 112/57; PULSE 93; RESP 18; TEMP 36.1; O2SAT 95
--- NOTE | 2021-10-07 08:59 | W.MHC.F2F ---
Service Date Service Date: 10/07/21 Encounter Date of encounter: 10/07/21 Reasons for Services Reason for physical therapy: home safety and mobility, therapeutic exercises, restore joint function, gait/transfer training, ADL training and energy conservation Reason for occupational therapy: home safety and mobility, therapeutic exercises, restore joint function, gait/transfer training, ADL training and energy conservation MD Overseeing Care: Joaquín Martin Homebound: Leaving the home is medically contraindicated at this time without the asist of a device and/or another person due th the listed conditions above and below. Reason homebound: unsteady gait / fall risk, pain with ambulation, pain with transfers, poor balance / fall risk and unable to drive Homebound supporting statement: Pt. is considered home bound due to recent surgery. Unable to drive, poor balance, poor gait mechanics. Certification: Based on the above findings, I certify that this patient is confined to the home and needs intermittent long term care, physical therapy and/or speech therapy, or continues to need occupational therapy. The patient is under my care, and I have initiated the establishment of the plan of care. The patient will be followed by a physician who will periodically review the plan of care.
--- NOTE | 2021-10-07 09:00 | PM.DS ---
DS: Providers Provider Date of Service: 10/07/21 Primary care physician: Unknown Physician Consults: 10/05/21 08:56 Consult to Hospitalist Routine Consulting Provider: Hospitalist Reason For Exam: routine medical management DS: Diagnosis Discharge Diagnosis (1) Status post total replacement of right hip: Status: Acute DS: Summary Hospital Course Hospital Course: The patient underwent a successful right total hip arthroplasty, was transferred to PACU and then to the floor to recover. During their stay, their vitals were stable, afebrile 97.0 at . Labs were unremarkable, H/H 9.2/28.3 . POD 1 she was started on ASA for DVT ppx, they also received PT/OT services twice a day. Prior to discharge, their dressing was change, incision clean dry and intact, new Aquacel dressing applied and the plan was to be discharged Time Spent with Patient Time attestation: Total time spent providing and/or coordinating discharge services: Discharge coordination time: Less than 30 minutes Quality: Stroke Does the patient have a stroke diagnosis?: No Physical Exam Vital Signs: Vital Signs: Last Vital Signs Temp 97.0 F 10/07/21 08:00 Pulse 93 10/07/21 08:00 Resp 18 10/07/21 08:00 BP 112/57 L 10/07/21 08:00 Pulse Ox 95 10/07/21 08:00 Body Mass Index 31.8 Const: General: cooperative, healthy appearing and no acute distress Resp: Effort & Inspection: normal respiratory effort and able to speak in complete sentences Cardio: Rate: regular rate Peripheral pulses: Peripheral pulses 2+ throughout GI: Palpation (GI): Soft to palpation Skin: General skin exam: no rashes or lesions noted Extrem: Other: incision clean dry and intact. Yvonne intact. No erythema or effusion. Calf supple nontender. Neurovascularly intact. DS: Data Data Completed and Pending Completed studies during hospitalization [Text1]: Pending at discharge 10/04/21 09:44 Surgical [PTH] Routine Labs on day of discharge: Laboratory Results - last 24 hr 10/07/21 10/07/21 05:02 05:02 WBC 5.6 RBC 3.17 L Hgb 9.2 L Hct 28.3 L MCV 89.3 MCH 29.0 MCHC 32.5 RDW 13.7 Plt Count 172 MPV 9.4 Immature Gran % (Auto) 0.4 Neut % (Auto) 56.3 Lymph % (Auto) 31.4 [place] % (Auto) 9.0 Eos % (Auto) 2.7 Baso % (Auto) 0.2 Lymph # (Auto) 1.8 [place] # (Auto) 0.5 Eos # (Auto) 0.2 Baso # (Auto) 0.0 Abs Immat Gran (auto) 0.02 Absolute Neuts (auto) 3.1 Absolute Nucleated RBC 0.000 Nucleated RBC % (auto) 0.0 Sodium 144 Potassium 5.1 D Chloride 110 H Carbon Dioxide 28 Anion Gap 11 L BUN 9 Creatinine 0.60 Estim Creat Clear Calc 101.0 Estimated GFR > 60 Fasting Glucose 88 Calcium 8.7 D Discharge Plan Discharge Patient Disposition: Home Health Service Referrals: [facility] [Outside] - 1 Day (HOME OT/PT, START OF CARE WILL BE Saturday10/07/21) Damari Madrigal PA-C [Physician Credit Administration Officer] - 2 Weeks (10/17/21 09:30 [facility] Damari Madrigal PA-C) Discharge Medications: New docusate sodium 100 mg Capsule 100 mg PO BID 20 Days Qty: 40 RF: 0 aspirin 325 mg Tablet 325 mg PO BID 42 Days Qty: 84 RF: 0 oxycodone 5 mg Tablet 5 mg PO Q4H PRN (Reason: Pain, Moderate (Pain Scale 4-6) 7 Days Qty: 42 RF: 0 acetaminophen 325 mg Tablet 650 mg PO Q6H PRN (Reason: Pain, Mild (Pain Scale 1-3)) 30 Days Qty: 240 RF: 0 Continued ([place] [facility] [place] .MEDSUPPLY Qty: 1 RF: 0 flaxseed oil 1,000 mg Capsule 1,000 mg PO DAILY RF: 0 alprazolam 0.25 mg Tablet 0.25 mg PO DAILY PRN (Reason: Anxiety) RF: 0 PreserVision AREDS [id number] Capsule 1 cap PO BEDTIME RF: 0 cholecalciferol (vitamin D3) [Vitamin D3] 125 mcg (5,000 unit) Tablet 125 mcg PO DAILY RF: 0 cyanocobalamin (vitamin B-12) [Vitamin B-12] 2,500 mcg Tablet, Sublingual 2,500 mcg SUBLINGUAL QAM RF: 0 furosemide [Lasix] 20 mg tablet 20 mg PO QPM RF: 0 paroxetine HCl 40 mg tablet 40 mg PO BEDTIME RF: 0 Discontinued aspirin [Aspirin Low-Strength] 81 mg Tablet,Delayed Release (Dr/Ec) 81 mg PO BEDTIME RF: 0 Discharge Orders: Discharge Order (Routine); Ordered 10/07/21 Ordered By: Colette Lamb Activity Restrictions/Additional Instructions: Physical Therapy for Total knee arthroplasty: gait training, ROM 0-12, quad strength Limit stair climbing No showering, no tub bath-keep dressing clean, dry and intact No driving x6 weeks Continue Aspirin twice a day x 6 weeks Follow up with [facility] Orthopedics in 2 weeks
[2021-10-07] MEDS: Celecoxib 200 MG CAPSULE PO (09:18)
[2021-10-07] MEDS: Aspirin 325 MG TABLET PO (09:18)
[2021-10-07] MEDS: oxyCODONE HCl ER 10 MG TAB.ER.12H PO (09:18)
[2021-10-07] MEDS: Docusate Sodium 100 MG CAPSULE PO (09:18)
--- NOTE | 2021-10-07 09:23 | MHC.CM.PN ---
PATIENT IS DISCHARGED HOME TODAY WITH [facility] P.T. FAMILY TO TRANSPORT. RN AWARE OF PLAN.
[2021-10-07 09:38] VITALS: BP 112/57; PULSE 93; O2SAT 95
== END 2021-10-07 12:29 | disposition home health service (06) ==
LOC: HO.S3 10-05 10:23 → HO.SSS 10-05 15:17 → HO.S3 10-05 15:18
PROVIDERS: Physician Assistant; PCP Internal Medicine; Visit Provider Orthopaedic Surgery
PROC: (CPT 27130; principal; 2021-10-04 08:40)
DX: M16.11 Unilateral primary osteoarthritis, right hip (principal); M25.551 Pain in right hip; R26.2 Difficulty in walking, not elsewhere classified; M54.9 Dorsalgia, unspecified; I10 Essential (primary) hypertension; R60.9 Edema, unspecified; E16.2 Hypoglycemia, unspecified; Z20.822 Contact with and (suspected) exposure to COVID-19; Z96.652 Presence of left artificial knee joint; Z85.828 Personal history of other malignant neoplasm of skin; Z88.1 Allergy status to other antibiotic agents; Z91.040 Latex allergy status; Z87.891 Personal history of nicotine dependence
CPT/HCPCS: 27130; 36415; 72170; 80048; 85025; 86850; 86900; 86901; 87635; 87640; 87641; 88304; 88311; 97110; 97116; 97161; 97165; 97530; 97535; C1776; J0131; J1100; J1170; J2250; J2370; J2405; J3010; J3370

== ENCOUNTER → 2021-10-17 09:32 | Outpatient (BNVA) | payer MEDICARE, SELFPAY | PROVIDERS: Visit Provider Physician Assistant | DX: Z47.1 Aftercare following joint replacement surgery (principal); Z96.641 Presence of right artificial hip joint | CPT/HCPCS: 99212 ==

== ENCOUNTER → 2021-11-13 11:28 | Outpatient (BNVA) | payer MEDICARE, SELFPAY | PROVIDERS: Visit Provider Orthopaedic Surgery | DX: Z47.1 Aftercare following joint replacement surgery (principal); M17.11 Unilateral primary osteoarthritis, right knee; Z96.641 Presence of right artificial hip joint | CPT/HCPCS: 20610; 99212; J1100 ==

== ENCOUNTER 2021-12-25 12:24 | Outpatient (REF) | payer MEDICARE, SELFPAY ==
--- NOTE | ~2021-12-25 | XR_ITS ---
EXAMINATION: XR PELVIS CLINICAL INFORMATION: Pain COMPARISON: Pelvic x-ray 10/04/2021 TECHNIQUE: AP view of the pelvis. FINDINGS: Pelvic ring is intact. Patient is status post right total hip arthroplasty. Components are in expected orientation. There is no periprosthetic fracture. There are similar moderate degenerative changes of the left hip without fracture or dislocation. XR/XR pelvis 1-2V IMPRESSION: -Similar moderate degenerative changes of the left hip. -No gross abnormality of right hip prosthesis.
== END 2021-12-25 12:25 | disposition home or self-care (01) ==
LOC: HO.HOSX 12:24
PROVIDERS: Visit Provider Orthopaedic Surgery
DX: Z47.1 Aftercare following joint replacement surgery (principal); Z96.641 Presence of right artificial hip joint
CPT/HCPCS: 72170; 99212

== ENCOUNTER → 2022-02-15 13:22 | Outpatient (BNVA) | payer MEDICARE, SELFPAY | PROVIDERS: Visit Provider Orthopaedic Surgery | DX: Z96.641 Presence of right artificial hip joint (principal) | CPT/HCPCS: 99212 ==

== ENCOUNTER 2022-03-14 11:12 | Outpatient (REF) | payer MEDICARE, SELFPAY ==
--- NOTE | ~2022-03-14 | MM_ITS ---
EXAMINATION: MM SCREENING DIGITAL BREAST TOMOSYNTHESIS, BILATERAL CLINICAL INFORMATION: Screening. Asymptomatic. The lifetime risk of breast cancer based on the Tyrer-Cuzick Model is 5%. COMPARISON: Mammography: 09/02/2020, 05/04/2019, 09/11/2017 TECHNIQUE: Digital breast tomosynthesis is performed in both the craniocaudal and mediolateral oblique views along with computer-aided detection (CAD). Synthesized 2D images are generated from the tomosynthesis. FINDINGS: There are scattered areas of fibroglandular density (ACR BI-RADS breast composition Category b). There are no significant masses, abnormal calcifications, or other abnormalities. Parenchymal pattern is similar to prior studies. There is no developing density or architectural abnormality. The axilla and skin contours are unremarkable. No significant changes. MM/MM tomosynthesis screening BI IMPRESSION: No mammographic evidence of malignancy. ASSESSMENT: BI-RADS 1: Negative RECOMMENDATION: Routine annual mammography screening. This patient's information was entered into a reminder system with a target due date for their next mammogram.
== END 2022-03-14 11:13 | disposition home or self-care (01) ==
LOC: HO.MAMMO 11:12
PROVIDERS: Visit Provider Internal Medicine
DX: Z12.31 Encounter for screening mammogram for malignant neoplasm of breast (principal)
CPT/HCPCS: 77063; 77067

== ENCOUNTER → 2022-04-12 12:22 | Outpatient (BNVA) | payer MEDICARE, SELFPAY | PROVIDERS: Visit Provider Orthopaedic Surgery | DX: M17.11 Unilateral primary osteoarthritis, right knee (principal); Z96.641 Presence of right artificial hip joint; Z96.652 Presence of left artificial knee joint | CPT/HCPCS: 20610; 99212; J1100 ==

== ENCOUNTER 2022-09-11 12:51 | Outpatient (REF) | payer MEDICARE, SELFPAY ==
[2022-09-11 15:50] LABS: Influenza A PCR NEGATIVE (Negative); Influenza B PCR NEGATIVE (Negative); Resp Syncy Virus RNA Qual PCR NEGATIVE (Negative); SARS COV2 PCR INHOUSE NEGATIVE (Negative)
== END 2022-09-11 12:52 | disposition home or self-care (01) ==
LOC: HO.LAB 12:51
PROVIDERS: Visit Provider Nurse Practitioner Family
DX: J02.9 Acute pharyngitis, unspecified (principal); Z20.822 Contact with and (suspected) exposure to COVID-19
CPT/HCPCS: 0241U

== ENCOUNTER → 2022-11-01 13:10 | Outpatient (BNVA) | payer MEDICARE, SELFPAY | PROVIDERS: PCP Internal Medicine; Visit Provider Orthopaedic Surgery | DX: M17.11 Unilateral primary osteoarthritis, right knee (principal); Z96.641 Presence of right artificial hip joint | CPT/HCPCS: 20610; 99212; J1100 ==

== ENCOUNTER 2023-01-04 09:33 | Outpatient (REF) | payer MEDICARE, SELFPAY ==
[2023-01-04 09:47] LABS: MANUAL DIFF FLAG NO
[2023-01-04 10:43] LABS: Basophils Percent Auto 0.8 % (0-2); Eosinophils Absolute Auto 0.1 X10*3/uL (0.0-0.4); Eosinophils Percent Auto 2.6 % (0-4); Hematocrit 41.3 % (37.0-47.0); Imm Gran Abs Auto 0.01 X10*3/uL (0.00-0.03); Imm Gran Pct Auto 0.2 % (0.0-0.4); Lymphocytes Absolute Auto 1.5 X10*3/uL (1.2-4.9); Lymphocytes Percent Auto 30.1 % (20-40); Mean Corpuscular HGB Conc 31.5 g/dl (31.0-35.0); Mean Corpuscular Hemoglobin 25.4 pg (27.0-33.0); Mean Corpuscular Volume 80.7 fL (80.0-98.0); Mean Platelet Volume 9.4 fL (9.4-12.3); Monocytes Absolute Auto 0.5 X10*3/uL (0.1-1.2); Monocytes Percent Auto 8.9 % (2-11); Neutrophils Absolute Auto 2.9 x10*3/uL (2.0-8.3); Neutrophils Percent Auto 57.4 % (45-73); Platelet Count 266 X10*3/uL (160-400); Red Blood Count 5.12 X10*6/uL (4.20-5.50); Red Cell Distribution Width 15.5 % (11.0-16.0); White Blood Count 5.1 X10*3/uL (4.8-10.8)
[2023-01-04 10:46] LABS: Appearance Urine Clear; Color Urine Yellow; Glucose Urine UA Negative (Negative); Leukocyte Esterase Urine Small (1+) (Negative); Nitrite Urine Negative (Negative); PH 7.5 (5.0-9.0); Specific Gravity - Urine 1.025 (1.005-1.025); UMIC TRIGGER UA YES; Urine Blood Negative (Negative); Urine Ketones Negative (Negative); Urine Protein Trace mg/dL (Neg-Trace)
[2023-01-04 10:57] LABS: Bacteria Urine None Seen (None Seen); Hyaline Casts Urine 0-2 /LPF (0-2); Squamous Epithelial Cell Urine 0-2 /HPF (0-2); WBC Urine 0-5 /HPF (0-5)
[2023-01-04 11:27] LABS: Alanine Aminotransferase 25 U/L (0-31); Albumin Level 4.2 g/dL (3.5-5.0); Alkaline Phosphatase 113 U/L (39-117); Anion Gap 14 (12-20); Aspartate Amino Transferase 26 U/L (5-31); Bilirubin Total 0.9 mg/dL (0.0-1.0); Blood Urea Nitrogen 13 mg/dL (9-16); Calcium 9.9 mg/dL (8.4-10.2); Carbon Dioxide 28 mmol/L (22-29); Chloride 106 mmol/L (96-108); Cholesterol 230 mg/dL; Estimated Glomerular Filt Rate > 60; Glucose Random 82 mg/dL (60-115); HDL Cholesterol 51 mg/dL; LDL Cholesterol Calculated 146 mg/dl; Lipase 28 U/L (8-78); Potassium 4.8 mmol/L (3.3-5.1); Sodium 143 mmol/L (135-145); Total Protein 6.7 g/dL (6.5-8.0); Triglycerides 167 mg/dL
[2023-01-04 11:32] LABS: Free T4 (Free Thyroxine) 0.92 ng/dL (0.71-1.85); Thyroid Stimulating Hormone 2.51 uIU/mL (0.32-4.0)
== END 2023-01-04 09:34 | disposition home or self-care (01) ==
LOC: HO.LAB 09:33
PROVIDERS: PCP Internal Medicine; Visit Provider Internal Medicine
DX: R10.13 Epigastric pain (principal); M15.9 Polyosteoarthritis, unspecified; R14.0 Abdominal distension (gaseous); E78.2 Mixed hyperlipidemia
CPT/HCPCS: 36415; 80053; 80061; 81001; 83690; 84439; 84443; 85025

== ENCOUNTER 2023-01-21 11:23 | Outpatient (REF) | payer MEDICARE, SELFPAY ==
[2023-01-21 12:38] LABS: Appearance Urine Clear; Color Urine Yellow; Glucose Urine UA Negative (Negative); Leukocyte Esterase Urine Negative (Negative); Nitrite Urine Negative (Negative); PH 5.5 (5.0-9.0); Urine Blood Negative (Negative); Urine Ketones Negative (Negative); Urine Protein Negative (Neg-Trace)
== END 2023-01-21 11:24 | disposition home or self-care (01) ==
LOC: HO.LAB 11:23
PROVIDERS: PCP Internal Medicine; Visit Provider Internal Medicine
DX: R31.9 Hematuria, unspecified (principal); R82.90 Unspecified abnormal findings in urine
CPT/HCPCS: 81003; 87086

== ENCOUNTER 2023-05-15 12:26 | Outpatient (REF) | payer MEDICARE, SELFPAY ==
--- NOTE | ~2023-05-15 | MM_ITS ---
EXAMINATION: MM SCREENING DIGITAL BREAST TOMOSYNTHESIS, BILATERAL CLINICAL INFORMATION: Screening. Asymptomatic. The lifetime risk of breast cancer based on the Tyrer-Cuzick Model is 5%. COMPARISON: Mammography: 03/14/2022, 09/02/2020, 05/04/2019 TECHNIQUE: Digital breast tomosynthesis is performed in both the craniocaudal and mediolateral oblique views along with computer-aided detection (CAD). Synthesized 2D images are generated from the tomosynthesis. FINDINGS: There are scattered areas of fibroglandular density (ACR BI-RADS breast composition Category b). There are no significant masses, abnormal calcifications, or other abnormalities. Parenchymal pattern is similar to prior studies. There is no developing density or architectural abnormality. The axilla and skin contours are unremarkable. No significant changes. MM/MM tomosynthesis screening BI IMPRESSION: No mammographic evidence of malignancy. ASSESSMENT: BI-RADS 1: Negative RECOMMENDATION: Routine annual mammography screening. This patient's information was entered into a reminder system with a target due date for their next mammogram.
== END 2023-05-15 12:27 | disposition home or self-care (01) ==
LOC: HO.MAMMO 12:26
PROVIDERS: PCP Internal Medicine; Visit Provider Internal Medicine
DX: Z12.31 Encounter for screening mammogram for malignant neoplasm of breast (principal)
CPT/HCPCS: 77063; 77067

== ENCOUNTER → 2023-05-23 11:20 | Outpatient (BNVA) | payer MEDICARE, SELFPAY | PROVIDERS: PCP Internal Medicine; Visit Provider Orthopaedic Surgery | DX: M17.11 Unilateral primary osteoarthritis, right knee (principal) | CPT/HCPCS: 20610; 99212; J1100 ==

== ENCOUNTER 2023-07-05 09:56 | Outpatient (REF) | payer MEDICARE, SELFPAY ==
[2023-07-05 10:10] LABS: MANUAL DIFF FLAG NO
[2023-07-05 10:27] LABS: Basophils Percent Auto 0.7 % (0-2); Eosinophils Absolute Auto 0.1 X10*3/uL (0.0-0.4); Eosinophils Percent Auto 1.7 % (0-4); Hematocrit 42.6 % (37.0-47.0); Hemoglobin 13.4 g/dl (12.0-16.0); Imm Gran Abs Auto 0.03 X10*3/uL (0.00-0.03); Imm Gran Pct Auto 0.5 % (0.0-0.4); Lymphocytes Absolute Auto 1.6 X10*3/uL (1.2-4.9); Lymphocytes Percent Auto 26.6 % (20-40); Mean Corpuscular HGB Conc 31.5 g/dl (31.0-35.0); Mean Corpuscular Volume 82.6 fL (80.0-98.0); Monocytes Absolute Auto 0.4 X10*3/uL (0.1-1.2); Neutrophils Absolute Auto 3.7 x10*3/uL (2.0-8.3); Neutrophils Percent Auto 63.5 % (45-73); Platelet Count 260 X10*3/uL (160-400); Red Blood Count 5.16 X10*6/uL (4.20-5.50); Red Cell Distribution Width 15.4 % (11.0-16.0); White Blood Count 5.8 X10*3/uL (4.8-10.8)
[2023-07-05 10:41] LABS: Estimated Average Glucose 103 mg/dL; Hemoglobin A1c % 5.2 %
[2023-07-05 11:29] LABS: Alanine Aminotransferase 31 U/L (0-31); Albumin Level 4.2 g/dL (3.5-5.0); Alkaline Phosphatase 112 U/L (39-117); Anion Gap 11 (12-20); Aspartate Amino Transferase 29 U/L (5-31); Bilirubin Total 0.6 mg/dL (0.0-1.0); Blood Urea Nitrogen 15 mg/dL (9-16); Calcium 10.1 mg/dL (8.4-10.2); Carbon Dioxide 28 mmol/L (22-29); Chloride 107 mmol/L (96-108); Estimated Glomerular Filt Rate > 60; Glucose Random 88 mg/dL (60-115); Lipase 24 U/L (8-78); Potassium 4.3 mmol/L (3.3-5.1); Sodium 142 mmol/L (135-145); Total Protein 7.4 g/dL (6.5-8.0)
[2023-07-05 11:34] LABS: Cortisol Random 8.6 ug/dL; Free T4 (Free Thyroxine) 0.75 ng/dL (0.71-1.85)
== END 2023-07-05 09:57 | disposition home or self-care (01) ==
LOC: HO.LAB 09:56
PROVIDERS: PCP Internal Medicine; Visit Provider Internal Medicine
DX: Z13.1 Encounter for screening for diabetes mellitus (principal); E66.9 Obesity, unspecified; Z68.33 Body mass index [BMI] 33.0-33.9, adult; E78.00 Pure hypercholesterolemia, unspecified; R10.13 Epigastric pain
CPT/HCPCS: 36415; 80053; 82533; 83036; 83690; 84439; 84443; 85025

== ENCOUNTER 2023-09-25 13:53 | Outpatient (AMB) | payer MEDICARE, SELFPAY ==
--- NOTE | 2023-09-25 14:02 | A.OFFPC_ITS ---
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 Transferring care from Dr. Maryam Galicia MD in [place]. Medical records have been requested and been received. 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: No Accompanied by: Self / Same As Patient Allergies amoxicillin [AMOXICILLIN] Allergy (Severe, Verified 09/25/23 14:21) severe vomiting pumpkin Allergy (Intermediate, Verified 09/25/23 14:21) Difficulty Breathing adhesive tape Adverse Reaction (Intermediate, Verified 09/25/23 14:21) rash hydrocodone Adverse Reaction (Intermediate, Verified 09/25/23 14:21) dizziness, disorientation Medication List - Last Reconciled 09/25/23 by Chiki Wei PA-C alprazolam 0.25 mg PO DAILY PRN aspirin 81 mg PO DAILY cholecalciferol (vitamin D3) (Vitamin D3) 125 mcg PO DAILY cyanocobalamin (vitamin B-12) (Vitamin B-12) 2,500 mcg sublingual QAM flaxseed oil 4,000 mg PO DAILY furosemide (Lasix) 20 mg PO QPM magnesium 250 mg PO DAILY paroxetine HCl 40 mg PO BEDTIME vitamins A,C,O-dpza-slixkh 4,296 mcg-226 mg-90 mg (PreserVision AREDS) 1 cap PO BEDTIME walker Folding Front wheeled walker Tobacco use date assessed: 09/25/23 Fall risk assessment: No Falls in past year Last assessed Fall Risk: 09/25/23 Dental Screening Dental Screen Date: 09/25/23 Did you have a dental visit in the last 12 months?: No Did you have a dental problem in the last 6 months where you did not have access to dental care?: No Was dental information given to patient?: Patient has dentist HPI 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 Patient has a past medical history significant for major depressive disorder, anxiety, hypertension, hyperlipidemia, obesity, history of a right hip replacement. black outs -- > Also reports having episodes of blackout 1-2 per months , never during the day. She reports that she feels her vision go dark though she does not lose any consciousness. She reports hearing a click just before her vision goes dark. She is mostly lying down well these symptoms are happening. Recurrent pancreatitis: Has had 3 episodes acute pancreatitis over the last 6 years. She continues to abdominal bloating and intermittent abdominal pain mostly located in her mid upper abdomen. Of note she does have a history of erosive esophagitis. Has seen tie in machine operator in the past. She reports she has gotten a lot of testing including CT and ultrasound of her abdomen without any significant findings of the pancreas. Does have dilated extrahepatic biliary region does thought to be secondary to her cholecystectomy. Her cholecystectomy was done as an open procedure 1986. .. Obesity: having alot of trouble loosing weight, she reports exercising on a daily basis and following a regimented low fat diet with a lot of vegetables. .. Hypertension: Had a history of hypertension though is able to get off blood pressure medications using diet and exercise. Blood pressure today in office acceptable. .. Borderline high cholesterol: Most recent lipid panel showing borderline high cholesterol in slight elevation in her triglycerides. Continues to work on diet modifications for this. [facility] Medical History (Updated 09/25/23 @ 15:05 by Chiki Wei PA-C) Lumbar herniated disc Hypoglycemia GERD (gastroesophageal reflux disease) COVID-19 vaccine series completed Macular degeneration Fluid retention in legs Pancreatitis Renal calculi Osteoarthritis Basal cell carcinoma Hiatal hernia Scoliosis Anxiety Depression Hypertension Surgical History History of esophagogastroduodenoscopy (EGD) H/O colonoscopy History of nasal septoplasty History of total left knee replacement History of section History of cholecystectomy History of hysterectomy Family History Father Cancer Mother No problems noted. 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 1. Little interest or pleasure in doing things: nearly every day 2. Feeling down, depressed, or hopeless: more than half the days 3. Trouble falling or staying asleep, or sleeping too much: nearly every day 4. Feeling tired or having little energy: nearly every day 5. Poor appetite or overeating: not at all 6. Feeling bad about yourself - or that you are a failure or have let yourself or your family down: more than half the days 7. Trouble concentrating on things, such as reading the newspaper or watching television: nearly every day 8. Moving or speaking so slowly that other people could have noticed. Or the opposite - being so fidgety or restless that you have been moving around a lot more than usual: not at all 9. Thoughts that you would be better off or of hurting yourself in some way: not at all Total score: 16 [id number] - PHQ-9 Billing: Yes Source: Developed by Drs. Gaurang Curiel, Renetta Dailey, Felix Johnson and colleagues, with an educational markel from [employer]. Thrive Questionnaire Date Thrive assessed: 09/25/23 I am a: Patient What is your living situation today?: I have a steady place to live Within the past 12 months, did the food you bought not last and you didn't have the money to get more?: Never true Within the past 12 months, did you worry whether your food would run out before you got money to buy more?: Never true Do you have trouble paying for medicines?: No Do you have trouble getting transportation to medical appointments?: No Do you have trouble paying your heating and electricity bill?: No Do you have trouble taking care of your child, family member or friend?: No Do you have trouble with day-to-day activities such as bathing, preparing meals, shopping, managing finances, etc.?: No Are you currently unemployed and looking for a job?: No Are you interested in more education?: No Please select the resources that you would like help with: None Currently or been in a relationship where the following occur: no concerns reported AUDIT C Alcohol Use Questionnaire (AUDIT-C) 1. How often do you have a drink containing alcohol?: Never 3. How often do you have six or more drinks on one occasion?: Never Total Score: 0 RUDY-7 AMB Questionnaire RUDY-7 Date RUDY - 7 assessed: 09/25/23 Feeling nervous, anxious, or on edge: 3 = Nearly every day Not being able to stop or control worryin = Nearly every day Worrying too much about different things: 3 = Nearly every day Trouble relaxin = Nearly every day Being so restless that it is hard to sit still: 2 = More than half the days Becoming easily annoyed or irritable: 3 = Nearly every day Feeling afraid as if something awful might happen: 3 = Nearly every day Total RUDY-7 score (0-4 normal; 5-9 mild; 10-14 moderate; 15-21 severe): 20 Source: Developed by Drs. Gaurang Curiel, Renetta Dailey, Felix Johnson and colleagues, with an educational markel from [employer]. RUDY-7 Assessment Billing RUDY-7 Assessment Tool: RUDY-7 Assessment [id number] Review of Systems Const Denies headache(s) Eyes Denies loss of vision ENT Denies vertigo, Denies dizziness, Denies headache(s) and Denies sore throat Card Denies chest pain, Denies leg edema and Denies lightheadedness Resp Denies cough, Denies hemoptysis and Denies wheezing GI Reports abdominal pain, Denies melena, Reports bloating, Reports constipation, Reports dyspepsia, Denies diarrhea and Denies vomiting Denies urinary frequency, Denies dysuria and Denies urinary urgency Musc Denies arthralgias, Denies joint swelling, Denies numbness and Denies tingling Neuro Denies Abnormal speech present, Denies behavioral changes, Denies vertigo, Denies dizziness, Denies headache(s), Denies loss of vision, Denies memory loss, Denies numbness and Denies tingling Psych Denies anxiety, Denies behavioral changes, Denies depression, Denies memory loss and Denies panic attacks Roshan/Lymph Denies easy bleeding and Denies easy bruising Aller/Immun Denies wheezing Physical exam (Primary Care) Vital Signs: Last Vital Signs Pulse 90 09/25/23 14:04 BP 110/72 09/25/23 14:04 Pulse Ox 95 09/25/23 14:04 Oxygen Delivery Method Room Air 09/25/23 14:04 BMI result Body Mass Index 34.2 Tobacco/Smoking Status: Tobacco use Status Tobacco use date assessed 09/25/23 09/25/23 14:18 Patient Tobacco Use Status Former Tobacco user 09/25/23 14:07 Tobacco use type Cigarette 09/25/23 14:07 e-Cigarette/Vaping Use Never Used 09/25/23 14:18 PHQ-9: PHQ-9 Score PHQ-9: Total score 16 09/25/23 14:27 Thrive Assessment: Date of Thrive Assessment Date Thrive assessed 09/25/23 09/25/23 14:18 Currently or been in a relationship where the following occur: no concerns reported Const General: healthy appearing, no acute distress, alert and awake Nutritional Appearance: well nourished Orientation/consciousness: oriented to person, oriented to place and oriented to time HENMT Ears: TM's normal bilaterally General nose exam: Normal nasal mucous membranes and turbinates present Eyes Conjunctivae: conjunctivae normal Sclerae: sclerae normal Pupils: Equal, round and reactive pupils present Neck Neck: Yes no lymphadenopathy and Yes no JVD Thyroid: Thyroid normal Carotids: no bruits Resp Effort & Inspection: normal respiratory effort and not tachypneic Auscultation: no crackles, no rales, no rhonchi and no wheezes Cardio Rate: regular rate Rhythm: regular rhythm Heart sounds: no murmurs and normal S1 and S2 GI Palpation (GI): Soft to palpation, nontender, no hepatomegaly and no splenomegaly Auscultation: normal bowel sounds Skin General skin exam: no rashes or lesions noted and dry skin Neuro General: oriented to person, oriented to place and oriented to time Cranial nerves: Yes Equal, round and reactive pupils present Speech: No Abnormal speech present Gait exam (Neuro): Normal gait present Motor exam (neuro): no tremor noted Extrem Right upper extremity: full ROM Left upper extremity: full ROM Right lower extremity: full ROM; no edema Left lower extremity: full ROM; no edema Psych Mental Status: mental status grossly normal Speech and movement: Normal speech and movement present Affect: normal affect Attitude: cooperative Thought process: Normal thought process present Assessment and Plan Assessment & Plan (1) Syncopal episodes: Code(s): R55 - Syncope and collapse Qualifiers: Syncope type: vasovagal syncope Qualified Code(s): R55 - Syncope and collapse Plan: Patient reports blacking out having syncopal episodes mostly at night lying down. Order carotid ultrasounds to evaluate for any significant stenosis in the carotid arteries. Will send for CT of brain with IV contrast to evaluate for any venous arterial malformations. Differential diagnosis: Carotid stenosis, TIAs atypical migraines with aura, pots (2) Pancreatitis: Comment: 3 attacks since 2018-[facility] Gastroenterology Code(s): K85.90 - Acute pancreatitis without necrosis or infection, unspecified Qualifiers: Acute pancreatitis complication: unspecified Chronicity: acute Pancreatitis type: unspecified pancreatitis type Qualified Code(s): K85.90 - Acute pancreatitis without necrosis or infection, unspecified Plan: Has had 3 episodes of pancreatitis over the last 6 years. 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 Most recent CT of abdomen did show extra hepatic biliary tree dilation thought to be due to cholecystectomy in the past. Has had cholecystectomy in 1986 due to gallstones which was done as a open procedure. Has large abdominal scar. She continues to have abdominal bloating and continues on a low-fat diet. (3) Blackout: Code(s): R55 - Syncope and collapse Plan: As of above. 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 (4) FRANCISCO (obstructive sleep apnea): Code(s): G47.33 - Obstructive sleep apnea (adult) (pediatric) Plan: Patient does report some daytime somnolence. She does also report her partner reports she does snore at night. Will send for home sleep study to evaluate for obstructive sleep apnea. (5) Recurrent major depression: Code(s): F33.9 - Major depressive disorder, recurrent, unspecified Qualifiers: Active/Remission status: currently active Major depression episode severity: moderate Qualified Code(s): F33.1 - Major depressive disorder, recurrent, moderate Plan: Patient continues on SSRI therapy that is fairly effective on reducing her low moods. She does report she may be bipolar. She reports a family history of bipolar resume and mood disorders. She has spoke with mental therapist in the past. (6) Hypertension: Comment: under control Code(s): I10 - Essential (primary) hypertension Qualifiers: Hypertension type: primary hypertension Qualified Code(s): I10 - Essential (primary) hypertension Plan: Patient's blood pressure acceptable today in office. Has been able to manage her blood pressure with diet and exercise. Orders: Orders CT head/brain w IV con Today R55 - Syncope and collapse EUFEMIA Reflex Titer and Pattern Today K85.90 - Acute pancreatitis without necrosis or infection, unspecified Comprehensive [place]. Panel Fast Today I10 - Essential (primary) hypertension US carotid duplex BI Today R55 - Syncope and collapse Alpha 1 Anti-trypsin Today K85.90 - Acute pancreatitis without necrosis or infection, unspecified Lipase Today K85.90 - Acute pancreatitis without necrosis or infection, unspecified Transglutaminase IgA Today K85.90 - Acute pancreatitis without necrosis or infection, unspecified, R14.0 - Abdominal distension (gaseous) Transglutaminase Ab IgG Today K85.90 - Acute pancreatitis without necrosis or infection, unspecified, R14.0 - Abdominal distension (gaseous) RT home sleep study Today G47.33 - Obstructive sleep apnea (adult) (pediatric) Referrals Gastroenterology Referral K85.90 - Acute pancreatitis without necrosis or infection, unspecified Coding Level of Care Code New Pt Level 5 (64903) Diagnoses Vasovagal syncope R55 Syncope type: vasovagal syncope Acute pancreatitis, unspecified complication status, unspecified pancreatitis type K85.90 Acute pancreatitis complication: unspecified Chronicity: acute Pancreatitis type: unspecified pancreatitis type Blackout R55 FRANCISCO (obstructive sleep apnea) G47.33 Moderate episode of recurrent major depressive disorder F33.1 Active/Remission status: currently active Major depression episode severity: moderate Primary hypertension I10 Hypertension type: primary hypertension Additional Codes RUDY-7 Assessment Billing - RUDY-7 Assessment Tool: RUDY-7 Assessment 46143 ([id number])
[2023-09-25 14:04] VITALS: BP 110/72; PULSE 90; O2SAT 95; BMI 34.2
== END 2023-09-25 15:04 | disposition home or self-care (01) ==
PROVIDERS: PCP Physician Assistant; Visit Provider Physician Assistant
DX: R55 Syncope and collapse (principal); K85.90 Acute pancreatitis without necrosis or infection, unspecified; G47.33 Obstructive sleep apnea (adult) (pediatric); F33.1 Major depressive disorder, recurrent, moderate; I10 Essential (primary) hypertension
CPT/HCPCS: 96127; 99204

== ENCOUNTER 2023-10-01 09:52 | Outpatient (REF) | payer MEDICARE, SELFPAY ==
[2023-10-01 12:09] LABS: Alanine Aminotransferase 24 U/L (0-31); Albumin Level 4.1 g/dL (3.5-5.0); Alkaline Phosphatase 110 U/L (39-117); Anion Gap 12 (12-20); Aspartate Amino Transferase 25 U/L (5-31); Bilirubin Total 0.6 mg/dL (0.0-1.0); Blood Urea Nitrogen 12 mg/dL (9-16); Calcium 9.8 mg/dL (8.4-10.2); Carbon Dioxide 29 mmol/L (22-29); Chloride 107 mmol/L (96-108); Estimated Glomerular Filt Rate > 60; Glucose Fasting 86 mg/dL (60-99); Lipase 24 U/L (8-78); Potassium 4.4 mmol/L (3.3-5.1); Sodium 144 mmol/L (135-145); Total Protein 7.1 g/dL (6.5-8.0)
[2023-10-01 12:30] LABS: TSH reflex Free T4 1.54 uIU/mL (0.32-4.0)
[2023-10-03 11:04] LABS: Alpha 1 Anti-trypsin 151 mg/dL (83-199)
[2023-10-03 18:44] LABS: Transglutaminase Ab IgG <1.0 U/mL; Transglutaminase IgA <1.0 U/mL
[2023-10-08 14:14] LABS: Anti Nuclear Antibody Screen POSITIVE (NEGATIVE)
== END 2023-10-01 09:53 | disposition home or self-care (01) ==
LOC: HO.LAB 09:52
PROVIDERS: PCP Physician Assistant; Visit Provider Physician Assistant
DX: R55 Syncope and collapse (principal); R14.0 Abdominal distension (gaseous); K85.90 Acute pancreatitis without necrosis or infection, unspecified; I10 Essential (primary) hypertension
CPT/HCPCS: 36415; 80053; 82103; 83690; 84443; 86038; 86039; 86364; 86900; 86901

== ENCOUNTER 2023-10-31 14:15 | Outpatient (REF) | payer MEDICARE, SELFPAY ==
--- NOTE | ~2023-10-31 | US_ITS ---
EXAMINATION: US EXTRACRANIAL CAROTID DUPLEX, BILATERAL CLINICAL INFORMATION: Syncope. Tobacco. Hyperlipidemia.. COMPARISON: None available. TECHNIQUE: Real-time ultrasound and Doppler techniques (integrating B-mode 2-D vascular images, Doppler spectral analysis and color-flow Doppler imaging) were utilized to interrogate the extracranial carotid arteries, the vertebral arteries and proximal subclavian arteries bilaterally. The degree of stenosis is determined by criteria similar to NASCET. FINDINGS: Right Side: 1. There is mild atherosclerotic plaque seen in the bifurcation/proximal ICA region. 2. The common carotid artery PSV proximally is 97 cm/s and distally 69 cm/s. 3. The proximal internal carotid artery velocities are 70 cm/s systolic and 23 cm/s diastolic. 4. The proximal external carotid artery PSV is 124 cm/s. 5. The vertebral artery shows antegrade flow. 6. The subclavian artery waveforms are normal. Left Side: 1. There is mild atherosclerotic plaque seen in the bifurcation/proximal ICA region. 2. The common carotid artery PSV proximally is 167 cm/s and distally 109 cm/s. 3. The proximal internal carotid artery velocities are 71 cm/s systolic and 20 cm/s diastolic. 4. The proximal external carotid artery PSV is 123 cm/s. 5. The vertebral artery shows antegrade flow. 6. The subclavian artery waveforms are normal. US/US carotid duplex BI IMPRESSION: 1. RIGHT: Minimal, non-hemodynamically significant stenosis of the proximal right internal carotid artery corresponding to a 0-49% stenosis by velocity criteria. 2. LEFT: Minimal, non-hemodynamically significant stenosis of the proximal left internal carotid artery corresponding to a 0-49% stenosis by velocity criteria.
== END 2023-10-31 14:16 | disposition home or self-care (01) ==
LOC: HO.US 14:15
PROVIDERS: PCP Physician Assistant; Visit Provider Physician Assistant
DX: R55 Syncope and collapse (principal)
CPT/HCPCS: 93880

== ENCOUNTER 2023-11-13 10:11 | Outpatient (REF) | payer MEDICARE, SELFPAY ==
--- NOTE | ~2023-11-13 | CT_ITS ---
CT ANGIOGRAM BRAIN, HEAD CLINICAL INFORMATION: Recurrent episodes of syncope. Evaluate for intracranial AVM. COMPARISON: Carotid ultrasound 10/31/2023. TECHNIQUE: Test bolus sequences followed by intravenous administration 75 mL of Omnipaque 350 intravenous contrast. Helical imaging was performed in the axial plane from the skull base to the vertex. Delayed postcontrast imaging of the head was also performed. The data was processed at the isotope technologist workstation for generation of MIP sequences. Three-dimensional volume rendered reformatted images were also generated at an offline 3-D workstation. The degree of stenosis determined by NASCET criteria. This CT examination was performed using dose optimization techniques as appropriate, variously including the following: *Automated exposure control *Adjustment of mA and/or kV according to patient size (this includes techniques or standardized protocols for targeted exams where dose is matched to indication/reason for exam; i.e. extremities or head) *Use of iterative reconstruction technique FINDINGS: The anterior and posterior intracranial arterial circulations are normal in caliber. There are no significant arterial stenoses and there are no acute arterial occlusions intracranially. No high flow vascular malformations are appreciated and there are no aneurysms. There is no pathologic enhancement intracranially. There is no intracranial hemorrhage, hydrocephalus, extra-axial surface collection, midline shift, or other herniation pattern. Parker to white matter differentiation is diffusely maintained without evidence of an evolved acute territorial infarct. The basilar cisterns are preserved. No significant soft tissue abnormality. No acute osseous abnormality. The paranasal sinuses and the mastoid air cells are well aerated. CT/CT angio head IMPRESSION: Unremarkable CTA of the head. No high flow vascular malformations are appreciated.
[2023-11-13] MEDS: iohexoL 350 MG/ML 100 ML INFUS..BTL IV (11:11)
[2023-11-15 06:20] LABS: Creatinine POC 0.5 mg/dL (0.5-1.4); GFR POC 60
== END 2023-11-13 10:12 | disposition home or self-care (01) ==
LOC: HO.CT 10:11
PROVIDERS: PCP Physician Assistant; Visit Provider Physician Assistant
DX: R55 Syncope and collapse (principal); G47.33 Obstructive sleep apnea (adult) (pediatric)
CPT/HCPCS: 70496; 82565; Q9967

== ENCOUNTER 2023-11-26 13:56 | Outpatient (AMB) | payer MEDICARE, SELFPAY ==
[2023-11-26 14:12] VITALS: BP 130/82; PULSE 86; RESP 17; BMI 33.9
--- NOTE | 2023-11-26 14:12 | A.OFFPC_ITS ---
Vital Signs 11/26/23 14:12 Height 5 ft 5.5 in Weight 207 lb BMI 33.9 BP 130/82 Blood Pressure Location Lt brachial Position Sitting Respiration 17 Pulse 86 Pulse Source Palpation Intake Visit Reasons: f/u Labs- abd issues. 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 Required: No Accompanied by: Self / Same As Patient Allergies amoxicillin [AMOXICILLIN] Allergy (Severe, Verified 11/26/23 14:34) severe vomiting pumpkin Allergy (Intermediate, Verified 11/26/23 14:34) Difficulty Breathing adhesive tape Adverse Reaction (Intermediate, Verified 11/26/23 14:34) rash hydrocodone Adverse Reaction (Intermediate, Verified 11/26/23 14:34) dizziness, disorientation Medication List - Last Reconciled 11/26/23 by Chiki Wei PA-C alprazolam 0.25 mg PO DAILY PRN aspirin 81 mg PO DAILY cholecalciferol (vitamin D3) (Vitamin D3) 125 mcg PO DAILY cyanocobalamin (vitamin B-12) (Vitamin B-12) 2,500 mcg sublingual QAM flaxseed oil 4,000 mg PO DAILY furosemide (Lasix) 20 mg PO QPM magnesium 250 mg PO DAILY paroxetine HCl 40 mg PO BEDTIME vitamins A,C,C-imhn-ryhvpy 4,296 mcg-226 mg-90 mg (PreserVision AREDS) 1 cap PO BEDTIME walker Folding Front wheeled walker Tobacco use date assessed: 11/26/23 Fall risk assessment: No Falls in past year Last assessed Fall Risk: 11/26/23 Dental Screening Dental Screen Date: 11/26/23 Did you have a dental visit in the last 12 months?: No Did you have a dental problem in the last 6 months where you did not have access to dental care?: No Was dental information given to patient?: Patient has dentist HPI f/u Labs- abd issues. HPI Details Patient is a 68-year-old female here today for a new patient annual physical. Patient has a past medical history significant for major depressive disorder, anxiety, hypertension, hyperlipidemia, obesity, history of a right hip replacement. Syncopal episodes black outs -- > interval history--> Also reports having episodes of blackout 1-2 per months , never during the day. She reports that sh e feels her vision go dark though she does not lose any consciousness. She reports hearing a click just before her vision goes dark. She is mostly lying down well these symptoms are happening. We have center for testing including carotid ultrasounds and CTA of head which were both unremarkable. Labs have been somewhat unremarkable though had at positive EUFEMIA 1; 80. Has follow-up with Rheumatology this week. Recurrent pancreatitis: Has had 3 episodes acute pancreatitis over the last 6 years. She continues to abdominal bloating and intermittent abdominal pain mostly located in her mid upper abdomen. Of note she does have a history of erosive esophagitis. Has seen glove machine operator in the past. She reports she has gotten a lot of testing including CT and ultrasound of her abdomen without any significant findings of the pancreas. Does have dilated extrahepatic biliary region does thought to be secondary to her cholecystectomy. Her cholecystectomy was done as an open procedure 1986. .. Obesity: having alot of trouble loosing weight, she reports exercising on a daily basis and following a regimented low fat diet with a lot of vegetables. .. Hypertension: Had a history of hypertension though is able to get off blood pressure medications using diet and exercise. Blood pressure today in office acceptable. .. Borderline high cholesterol: Most recent lipid panel showing borderline high cholesterol in slight elevation in her triglycerides. Continues to work on diet modifications for this Laboratory Tests 01/04/23 07/05/23 10/01/23 09:43 10:09 10:21 RBC 5.16 Creatinine 0.77 POC Creatinine Cholesterol 230 TSH 2.10 EUFEMIA Screen POSITIVE A EUFEMIA Titer 1:80 H Tiss Transglutamin IgG <1.0 11/13/23 10:39 RBC Creatinine POC Creatinine 0.5 Cholesterol TSH EUFEMIA Screen EUFEMIA Titer Tiss Transglutamin IgG COUNTS INCLUDE 234 BEDS AT THE [facility] Medical History (Updated 11/27/23 @ 07:55 by Chiki Wei PA-C) Lumbar herniated disc Hypoglycemia GERD (gastroesophageal reflux disease) COVID-19 vaccine series completed Macular degeneration Fluid retention in legs Pancreatitis Renal calculi Osteoarthritis Basal cell carcinoma Hiatal hernia Scoliosis Anxiety Depression Hypertension Surgical History History of esophagogastroduodenoscopy (EGD) H/O colonoscopy History of nasal septoplasty History of total left knee replacement History of section History of cholecystectomy History of hysterectomy Family History Father Cancer Mother No problems noted. 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 1. Little interest or pleasure in doing things: several days 2. Feeling down, depressed, or hopeless: more than half the days 3. Trouble falling or staying asleep, or sleeping too much: more than half the days 4. Feeling tired or having little energy: nearly every day 5. Poor appetite or overeating: not at all 6. Feeling bad about yourself - or that you are a failure or have let yourself or your family down: several days 7. Trouble concentrating on things, such as reading the newspaper or watching television: more than half the days 8. Moving or speaking so slowly that other people could have noticed. Or the opposite - being so fidgety or restless that you have been moving around a lot more than usual: not at all 9. Thoughts that you would be better off or of hurting yourself in some way: not at all Total score: 11 Depression Screening Interpretation: Positive Depression Screening Follow-up: Existing condition and In treatment Depression Screening Done: Yes 43341 - PHQ-9 Billing: Yes Source: Developed by Drs. Gaurang Curiel, Renetta Dailey, Felix Johnson and colleagues, with an educational markel from [employer]. Thrive Questionnaire Date Thrive assessed: 11/26/23 I am a: Patient What is your living situation today?: I have a steady place to live Within the past 12 months, did the food you bought not last and you didn't have the money to get more?: Never true Within the past 12 months, did you worry whether your food would run out before you got money to buy more?: Never true Do you have trouble paying for medicines?: No Do you have trouble getting transportation to medical appointments?: No Do you have trouble paying your heating and electricity bill?: No Do you have trouble taking care of your child, family member or friend?: No Do you have trouble with day-to-day activities such as bathing, preparing meals, shopping, managing finances, etc.?: No Are you currently unemployed and looking for a job?: No Are you interested in more education?: No Please select the resources that you would like help with: None Currently or been in a relationship where the following occur: no concerns reported AUDIT C Alcohol Use Questionnaire (AUDIT-C) 1. How often do you have a drink containing alcohol?: Never 3. How often do you have six or more drinks on one occasion?: Never Total Score: 0 RUDY-7 AMB Questionnaire RUDY-7 Date RUDY - 7 assessed: 11/26/23 Feeling nervous, anxious, or on edge: 3 = Nearly every day Not being able to stop or control worryin = More than half the days Worrying too much about different things: 2 = More than half the days Trouble relaxin = Several days Being so restless that it is hard to sit still: 0 = Not at all Becoming easily annoyed or irritable: 2 = More than half the days Feeling afraid as if something awful might happen: 3 = Nearly every day Total RUDY-7 score (0-4 normal; 5-9 mild; 10-14 moderate; 15-21 severe): 13 Source: Developed by Drs. Gaurang Curiel, Renetta Dailey, Felix Johnson and colleagues, with an educational markel from [employer]. RUDY-7 Assessment Billing RUDY-7 Assessment Tool: RUDY-7 Assessment 68034 Review of Systems Const Denies headache(s) Eyes Denies loss of vision ENT Denies vertigo, Denies dizziness, Denies headache(s) and Denies sore throat Card Denies chest pain, Denies leg edema and Denies lightheadedness Resp Denies cough, Denies hemoptysis and Denies wheezing GI Denies abdominal pain, Denies melena, Reports bloating, Reports constipation, Reports GI cramping, Denies diarrhea and Denies vomiting Denies urinary frequency, Denies dysuria and Denies urinary urgency Musc Denies arthralgias, Denies joint swelling, Denies numbness and Denies tingling Neuro Denies Abnormal speech present, Denies behavioral changes, Denies vertigo, Denies dizziness, Denies headache(s), Denies loss of vision, Denies memory loss, Denies numbness and Denies tingling Psych Denies anxiety, Denies behavioral changes, Denies depression, Denies memory loss and Denies panic attacks Roshan/Lymph Denies easy bleeding and Denies easy bruising Aller/Immun Denies wheezing Physical exam (Primary Care) Vital Signs: Last Vital Signs Pulse 86 11/26/23 14:12 Resp 17 11/26/23 14:12 BP 130/82 11/26/23 14:12 BMI result Body Mass Index 33.9 BMI Assessment/Plan discussion: High Tobacco/Smoking Status: Tobacco use Status Tobacco use date assessed 11/26/23 11/26/23 14:27 Patient Tobacco Use Status Former Tobacco user 11/26/23 14:13 Tobacco use type Cigarette 11/26/23 14:13 e-Cigarette/Vaping Use Never Used 11/26/23 14:13 PHQ-9: PHQ-9 Score PHQ-9: Total score 11 11/26/23 14:37 Depression Screening Interpretation: Positive Depression Screening Follow-up: Existing condition and In treatment Thrive Assessment: Date of Thrive Assessment Date Thrive assessed 11/26/23 11/26/23 14:27 Currently or been in a relationship where the following occur: no concerns reported Const Other: Obese General: healthy appearing, no acute distress, alert and awake Nutritional Appearance: well nourished Orientation/consciousness: oriented to person, oriented to place and oriented to time [facility] Ears: TM's normal bilaterally General nose exam: Normal nasal mucous membranes and turbinates present Eyes Conjunctivae: conjunctivae normal Sclerae: sclerae normal Pupils: Equal, round and reactive pupils present Neck Neck: Yes no lymphadenopathy and Yes no JVD Thyroid: Thyroid normal Carotids: no bruits Resp Effort & Inspection: normal respiratory effort and not tachypneic Auscultation: no crackles, no rales, no rhonchi and no wheezes Cardio Rate: regular rate Rhythm: regular rhythm Heart sounds: no murmurs and normal S1 and S2 GI Other: NOTED ABDOMINAL DISTENSION Inspection: Yes distended Palpation (GI): Soft to palpation, nontender, no hepatomegaly and no splenomegaly Auscultation: normal bowel sounds Skin General skin exam: no rashes or lesions noted and dry skin Neuro General: oriented to person, oriented to place and oriented to time Cranial nerves: Yes Equal, round and reactive pupils present Speech: No Abnormal speech present Gait exam (Neuro): Normal gait present Motor exam (neuro): no tremor noted Extrem Right upper extremity: full ROM Left upper extremity: full ROM Right lower extremity: full ROM; no edema Left lower extremity: full ROM; no edema Psych Mental Status: mental status grossly normal Speech and movement: Normal speech and movement present Affect: normal affect Attitude: cooperative Thought process: Normal thought process present Assessment and Plan Assessment & Plan (1) Abdominal distension: Code(s): R14.0 - Abdominal distension (gaseous) Plan: Continues to have abdominal distension and constipation. Has had GI workup in the past. Will treat for possible bacterial overgrowth syndrome. (2) Syncopal episodes: Code(s): R55 - Syncope and collapse Qualifiers: Syncope type: vasovagal syncope Qualified Code(s): R55 - Syncope and collapse Plan: Patient reports blacking out having syncopal episodes mostly at night lying down. The syncopal episodes happen a few times a month. Workup thus far has been unremarkable including carotid ultrasound, CTA of brain, lab test. Sleep study returned today in a waiting results. Will also send for echocardiogram to evaluate for structural heart disease. Did have a positive EUFEMIA will be following up with Rheumatology. (3) Hypertension: Comment: under control Code(s): I10 - Essential (primary) hypertension Qualifiers: Hypertension type: primary hypertension Qualified Code(s): I10 - Essential (primary) hypertension Plan: Patient's blood pressure acceptable today in office. Has been able to manage her blood pressure with diet and exercise. (4) Recurrent major depression: Code(s): F33.9 - Major depressive disorder, recurrent, unspecified Qualifiers: Active/Remission status: currently active Major depression episode severity: moderate Qualified Code(s): F33.1 - Major depressive disorder, recurrent, moderate Plan: Patient's PHQ-9 is positive. Patient has a existing condition of age her depressive disorder. Continues on Paxil. Not interested in mental health therapy at this time. (5) RUDY (generalized anxiety disorder): Code(s): F41.1 - Generalized anxiety disorder Plan: Patient's RUDY-7 score positive for moderate anxiety which has been existing condition for her. Most of her anxiety stems for her medical issues and her family history. She is not interested in starting new medication. Continues on Paxil and p.r.n. use of alprazolam. Orders: Orders CA echo transthoracic complete 11/26/23 R55 - Syncope and collapse ECG 12 lead EKG 11/26/23 R55 - Syncope and collapse Medications: New rifaximin 550 mg PO TID 14 days 42 tabs 0RF R14.0 - Abdominal distension (gaseous) Coding Level of Care Code Est Pt Level 4 (26515) Diagnoses Abdominal distension R14.0 Vasovagal syncope R55 Syncope type: vasovagal syncope Primary hypertension I10 Hypertension type: primary hypertension Moderate episode of recurrent major depressive disorder F33.1 Active/Remission status: currently active Major depression episode severity: moderate RUDY (generalized anxiety disorder) F41.1 Additional Codes RUDY-7 Assessment Billing - RUDY-7 Assessment Tool: RUDY-7 Assessment 69002 ([id number])
== END 2023-11-26 15:01 | disposition home or self-care (01) ==
PROVIDERS: PCP Physician Assistant; Visit Provider Physician Assistant
DX: R14.0 Abdominal distension (gaseous) (principal); R55 Syncope and collapse; I10 Essential (primary) hypertension; F33.1 Major depressive disorder, recurrent, moderate; F41.1 Generalized anxiety disorder
CPT/HCPCS: 99214

== ENCOUNTER 2023-11-28 07:57 | Outpatient (AMB) | payer MEDICARE, SELFPAY ==
--- NOTE | 2023-11-28 08:12 | MHC.OFFVIS ---
Intake Vital Signs 11/28/23 08:17 Height 5 ft 5.5 in BMI Reason not done Patient refused/unable BP 102/74 Blood Pressure Location Rt brachial Position Sitting Pulse 73 Pulse Source Pulse Oximeter Temp 97 F Temp Source Skin Pulse Oximetry (%) 98 Oxygen Delivery Method Room Air Intake Visit Reasons: Syncope and collapse Intake Note: New pt presents today for consult. 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 Hx of +EUFEMIA and syncope c/o jairo knee and leg pain for aprox 20 years. 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 Required: No Accompanied by: Self / Same As Patient Allergies amoxicillin [AMOXICILLIN] Allergy (Severe, Verified 11/28/23 08:15) severe vomiting pumpkin Allergy (Intermediate, Verified 11/28/23 08:15) Difficulty Breathing adhesive tape Adverse Reaction (Intermediate, Verified 11/28/23 08:15) rash hydrocodone Adverse Reaction (Intermediate, Verified 11/28/23 08:15) dizziness, disorientation Medication List - Last Reconciled 11/28/23 by Jun Gomez MD alprazolam 0.25 mg PO DAILY PRN aspirin 81 mg PO DAILY cholecalciferol (vitamin D3) (Vitamin D3) 125 mcg PO DAILY cyanocobalamin (vitamin B-12) (Vitamin B-12) 2,500 mcg sublingual QAM flaxseed oil 4,000 mg PO DAILY furosemide (Lasix) 20 mg PO QPM magnesium 250 mg PO DAILY paroxetine HCl 40 mg PO BEDTIME rifaximin 550 mg PO TID 14 days vitamins A,C,Z-vipr-rnmuec 4,296 mcg-226 mg-90 mg (PreserVision AREDS) 1 cap PO BEDTIME walker Folding Front wheeled walker HPI HPI Comments History of Present Illness Details This is a 68 year old female who presents for evaluation of a positive EUFEMIA. Patient states that she had 2 or 3 attacks of pancreatitis, most recent attack was 2 or 3 years ago. She stated that she had numerous tests but she does not recall a pancreatic biopsy. She does not recall getting treated with steroid. Patient states that she has osteoarthritis in both knees and right hip. She is s/p left knee replacement 2013 and right hip replacement 2 years ago. She states that she does have can not right knee osteoarthritis but she remains functional, she denies any swollen joints.. She denies any skin rashes. No fever or weight loss. No history of DVT/PE. She is on a baby aspirin as a preventative measure. She had 3 pregnancies and 1 miscarriage. She mentions that her mother had rheumatoid arthritis and her daughter has Crohn's disease [facility] Medical History Lumbar herniated disc Hypoglycemia GERD (gastroesophageal reflux disease) COVID-19 vaccine series completed Macular degeneration Fluid retention in legs Pancreatitis Renal calculi Osteoarthritis Basal cell carcinoma Hiatal hernia Scoliosis Anxiety Depression Hypertension Surgical History History of right hip replacement History of esophagogastroduodenoscopy (EGD) H/O colonoscopy History of nasal septoplasty History of total left knee replacement History of section History of cholecystectomy History of hysterectomy Family History Father Cancer Mother Rheumatoid arthritis Daughter Crohn's colitis Social History Housing: House Are you a primary caretaker to a significant other at home: No Do you presently have visiting nurse or other home services: No Unable to assess alcohol history related to: Unknown Comment: advised to remove before surgery Patient Tobacco Use Status: Former Tobacco user Quit Date: 37 years ago Tobacco use type: Cigarette e-Cigarette/Vaping Use: Never Used Advance Directives Date on File: 06/11/14 service: No 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 Hearing needs: No Vision needs: Yes Female Reproductive History Menstrual Total pregnancies: 3 Ab spontaneous: 1 Review of Systems Const Denies fever(s), Reports weight gain and Denies weight loss Eyes Reports dry eyes ENT Reports tinnitus GI Reports constipation, Reports heartburn and Reports nausea Musc Reports arthralgias and Reports stiffness Skin/Breast Reports unusual bruising Psych Reports abnormal sleep pattern, Reports anxiety and Reports depression Physical Exam Vital Signs: Last Vital Signs Temp 97 F 11/28/23 08:17 Pulse 73 11/28/23 08:17 BP 102/74 11/28/23 08:17 Pulse Ox 98 11/28/23 08:17 Oxygen Delivery Method Room Air 11/28/23 08:17 Const General: cooperative, healthy appearing and comfortable Nutritional Appearance: overweight Orientation/consciousness: patient oriented x3 Limitations: no limitations HEENT Head: Yes normocephalic and Yes atraumatic Mouth: moist mucous membranes Resp Effort & Inspection: normal respiratory effort and able to speak in complete sentences Auscultation: clear to auscultation bilaterally Cardio Rate: regular rate Rhythm: regular rhythm Skin General skin exam: no rashes or lesions noted Neuro General: patient oriented x3 Extrem Other: Mild osteoarthritic changes of both hands with Heberden's nodes, no active synovitis Normal nailfold capillaroscopy No rashes noted Assessment & Plan Assessment & Plan (1) Positive EUFEMIA (antinuclear antibody): Code(s): R76.8 - Other specified abnormal immunological findings in serum (2) Pancreatitis: Comment: 3 attacks since 2018-seeing [facility] Code(s): K85.90 - Acute pancreatitis without necrosis or infection, unspecified Qualifiers: Chronicity: acute Pancreatitis type: unspecified pancreatitis type Acute pancreatitis complication: unspecified Qualified Code(s): K85.90 - Acute pancreatitis without necrosis or infection, unspecified Plan: This is a 68-year-old female who presents for evaluation of a positive EUFEMIA 180. Of note patient had 3 attacks of pancreatitis since 2018. She mentions that she had multiple tests with Gastroenterology. She does not recall a pancreatic biopsy. She does not believe that she needed steroids for treatment. Her mother had rheumatoid arthritis and her daughter has Crohn's disease. Upon evaluation I do not see any obvious signs of a systemic autoimmune disease. I would like to re-evaluate patient after she gets evaluated by GI here at [facility]. Plan I spent 30 minutes reviewing patient's chart, evaluating patient, counseling patient and documenting in the chart Coding Level of Care Code New Pt Level 3 (93033) Diagnoses Positive EUFEMIA (antinuclear antibody) R76.8 Acute pancreatitis, unspecified complication status, unspecified pancreatitis type K85.90 Chronicity: acute Pancreatitis type: unspecified pancreatitis type Acute pancreatitis complication: unspecified
[2023-11-28 08:17] VITALS: BP 102/74; PULSE 73; TEMP 36.1; O2SAT 98
== END 2023-11-28 08:36 | disposition home or self-care (01) ==
PROVIDERS: PCP Physician Assistant; Visit Provider Student in an Organized Health Care Education/Training Program
DX: R76.8 Other specified abnormal immunological findings in serum (principal); K85.90 Acute pancreatitis without necrosis or infection, unspecified
CPT/HCPCS: 99203

== ENCOUNTER → 2023-11-28 07:57 | Outpatient (REF) | payer MEDICARE, SELFPAY | LOC: HO.CARD 07:57 | PROVIDERS: Absent Provider Physician Assistant; PCP Physician Assistant; Visit Provider Student in an Organized Health Care Education/Training Program | DX: R55 Syncope and collapse (principal); R76.8 Other specified abnormal immunological findings in serum; K85.90 Acute pancreatitis without necrosis or infection, unspecified | CPT/HCPCS: 93005; 99202 ==

== ENCOUNTER → 2023-11-28 08:47 | Outpatient (BNV) | payer MEDICARE, SELFPAY | PROVIDERS: Absent Provider Physician Assistant; PCP Physician Assistant; Visit Provider Internal Medicine Cardiovascular Disease | DX: R55 Syncope and collapse (principal) | CPT/HCPCS: 93010 ==

== ENCOUNTER 2023-12-03 14:17 | Emergency (ER) | payer MEDICARE, SELFPAY ==
--- NOTE | 2023-12-03 | ECG_ITS ---
Test Reason : CHEST PRESSURE Blood Pressure : / mmHG Vent. Rate : 065 BPM Atrial Rate : 065 BPM P-R Int : 146 ms QRS Dur : 076 ms QT Int : 414 ms P-R-T Axes : 044 010 038 degrees QTc Int : 430 ms Normal sinus rhythm Low voltage QRS Borderline ECG When compared with ECG of 28-NOV-2023 08:42, No significant change was found Referred By: Generic ED Physician Electronically Signed By:BIPIN WOLF MD
--- NOTE | ~2023-12-03 | XR_ITS ---
EXAMINATION: XR CHEST CLINICAL INFORMATION: Chest pain COMPARISON: Chest 09/02/2017 TECHNIQUE: 2 views of the chest were obtained. FINDINGS: The lungs are well expanded with flattening of the hemidiaphragms. Slight streaky opacity in the lower lobes most likely represents atelectasis, less likely pneumonia. No pleural effusion. No significant abnormality is noted involving the heart, mediastinum, bony thorax or soft tissues. XR/XR chest 2V IMPRESSION: No convincing evidence of significant cardiopulmonary disease.
[2023-12-03 15:37] VITALS: BP 119/64; PULSE 82; O2SAT 99; BMI 33.6
[2023-12-03 16:18] VITALS: BP 114/63; PULSE 66; RESP 16; TEMP 37.2; O2SAT 97
--- NOTE | 2023-12-03 16:30 | ED_ITS ---
HPI - Chest Pain General Chief Complaint: Chest Pain Stated Complaint: CP Time Seen by Provider: 12/03/23 16:30 Source: patient and RN notes reviewed Mode of arrival: ambulatory Limitations: no limitations History of Present Illness HPI narrative: This is a 68-year-old female, with a history of pancreatitis, hyperlipidemia, depression and anxiety, presenting to the emergency department with complaints of acute onset chest heaviness which occurred while she was walking around the grocery store today. Patient states that while she was walking in the grocery store she suddenly developed a chest heaviness with associated shortness of breath which lasted until the EMS personnel had arrived and given her nitroglycerin and aspirin. She states that she is feeling better after receiving nitro. She states that she still has a slight discomfort in her chest as well as some epigastric pain. She denies history of similar symptoms in the past. She denies any fevers, chills, cough, dizziness, nausea, vomiting, or diarrhea. No recent travel, surgeries, hospitalizations. No history of blood clots or clotting disorder. No cancer history. No other complaints or concerns at this time. MD complaint: chest heaviness Pertinent past history: coronary artery disease Onset (ago): hour(s) Timing of current episode: episodic and now resolved Prior episodes: Yes Pain location: substernal and epigastric Quality: aching Relieving factors: nitroglycerin Exacerbating factors: nothing Treatment prior to arrival: aspirin and nitroglycerin Risk Factors Coronary artery disease risk factors: hyperlipidemia Thoracic aortic dissection risk factors: none Related Data On Oral Contraceptives: No Home Medications Medication Instructions Recorded Confirmed paroxetine HCl 40 mg tablet 40 mg PO BEDTIME 08/27/20 11/26/23 furosemide 20 mg tablet (Lasix) 20 mg PO QPM 09/13/20 11/26/23 alprazolam 0.25 mg tablet 0.25 mg PO DAILY PRN Anxiety 09/27/21 11/26/23 cholecalciferol (vitamin D3) 125 125 mcg PO DAILY 09/27/21 11/26/23 mcg (5,000 unit) tablet (Vitamin D3) vitamins A,C,L-sgnd-okllko 4,296 1 cap PO BEDTIME 09/27/21 11/26/23 mcg-226 mg-90 mg capsule (PreserVision AREDS) cyanocobalamin (vitamin B-12) 2,500 mcg sublingual QAM 09/28/21 11/26/23 2,500 mcg sublingual tablet (Vitamin B-12) aspirin 81 mg tablet,delayed 81 mg PO DAILY 09/25/23 11/26/23 release flaxseed oil 1,000 mg capsule 4,000 mg PO DAILY 09/25/23 11/26/23 magnesium 250 mg tablet 250 mg PO DAILY 09/25/23 11/26/23 Previous Rx's Medication Instructions Recorded walker #1 ea 09/01/21 rifaximin 550 mg tablet 550 mg PO TID 14 days #42 tabs 12/02/23 Allergies Allergy/AdvReac Type Severity Reaction Status Date / Time amoxicillin [AMOXICILLIN] Allergy Severe severe Verified 11/28/23 08:15 vomiting pumpkin Allergy Intermediate Difficulty Verified 11/28/23 08:15 Breathing adhesive tape AdvReac Intermediate rash Verified 11/28/23 08:15 hydrocodone AdvReac Intermediate dizziness, Verified 11/28/23 08:15 disorientation Review of Systems 2 Review of Systems: Yes all other systems are reviewed and are negative Constitutional: Constitutional: Reports as per [facility] Past Medical History Onset Date is defined in the Problem List Problems that require an onset date and time if occurred within 24 hrs of arrival to the ED Aortic Dissection and Rupture; Neurologic impairment; Cardiopulmonary Arrest; Endotracheal Intubation; Insertion or Replacement of Mechanical Circulatory Assist Device Medical History Lumbar herniated disc Hypoglycemia GERD (gastroesophageal reflux disease) COVID-19 vaccine series completed Macular degeneration Fluid retention in legs Pancreatitis Renal calculi Osteoarthritis Basal cell carcinoma Hiatal hernia Scoliosis Anxiety Depression Hypertension Surgical History History of right hip replacement History of esophagogastroduodenoscopy (EGD) H/O colonoscopy History of nasal septoplasty History of total left knee replacement History of section History of cholecystectomy History of hysterectomy Family History Family History Father Cancer Mother Rheumatoid arthritis Daughter Crohn's colitis Social History Social History Housing: House Are you a primary health care liaison to a significant other at home: No Do you presently have visiting nurse or other home services: No Unable to assess alcohol history related to: Unknown Comment: advised to remove before surgery Patient Tobacco Use Status: Former Tobacco user Quit Date: 37 years ago Tobacco use type: Cigarette Smoked in Last 30 Days: No e-Cigarette/Vaping Use: Never Used Use of substances other than those prescribed or required for medical reasons: No Advance Directives: No Advance Directives Information Provided: No Advance Directives Date on File: 06/11/14 service: No 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 Hearing needs: No Vision needs: Yes Physical Exam 2 Vital Signs: Vital Signs: Last Vital Signs Temp 97.8 F 12/03/23 18:37 Pulse 65 12/03/23 19:31 Resp 12 12/03/23 19:31 BP 110/54 L 12/03/23 19:31 Pulse Ox 97 12/03/23 19:31 O2 Del Method Room Air 12/03/23 19:31 BMI result Body Mass Index 33.6 Const: General: cooperative, comfortable and no acute distress O rientation/consciousness: patient oriented x3 Limitations: no limitations HEENT: Head: Yes normal to inspection, Yes normocephalic and Yes atraumatic Ears: hearing grossly normal bilaterally General nose exam: Normal external nose present Face and sinus: Yes normal facial exam Mouth: Normal oral and palatal mucosa present, oropharynx normal and moist mucous membranes Throat: Yes posterior oropharynx normal Eyes: General: appearance normal, both eyes and all related structures E yelids: Yes eyelids normal Conjunctivae: conjunctivae normal Sclerae: s clerae normal Pupils: Equal, round and reactive pupils present EOM: EOMs intact bilaterally Neck: Neck: Yes normal visual inspection, Yes full ROM and Yes no lymphadenopathy Lymphatic: no lymphadenopathy noted Chest: Chest palpation & inspection: normal inspection of the chest Resp: Effort & Inspection: normal respiratory effort and able to speak in complete sentences Auscultation: clear to auscultation bilaterally, no crackles, no rales, no rhonchi and no wheezes Cardio: Rate: regular rate Rhythm: regular rhythm Heart sounds: S1 normal heart sound present and S2 normal heart sound present GI: Inspection: Yes normal to inspection Skin: General skin exam: no rashes or lesions noted Trauma: no lacerations or abrasions Wounds: no wounds Neuro: General: patient oriented x3 and moves all extremities Cranial nerves: Yes Equal, round and reactive pupils present Extrem: General: Yes normal to inspection Right upper extremity: normal to inspection Left upper extremity: normal to inspection Right lower extremity: normal to inspection Left lower extremity: normal to inspection Course Reevaluation(s) Reevaluation #1: First troponin returns <2.7, chest x-ray unremarkable CBC within normal limits, chemistry within normal limits. Time: 18:03 Reevaluation #2: D-dimer 236, negative therefore PE is unlikely. Patient has remained stable. Will repeat 2nd troponin Reevaluation #3: Second troponin flat. EKG reassuring, all other workup reassuring. No EKG changes, BMP within normal limits, chest x-ray unremarkable. I discussed these findings with patient, as well as return precautions. Patient understands and agrees with plan. I also gave her a referral to Cardiology. Patient stable for discharge. Time: 21:47 Medical Decision Making Medical Decision Making MDM Narrative: This is a 68-year-old female, with a history of hyperlipidemia and pancreatitis, presenting to the emergency department with complaints of acute onset chest pressure which occurred today while walking around at the grocery store. She also reports associated shortness of breath with this episode. Her symptoms resolved after receiving nitroglycerin and aspirin. He continues to have slight soreness in her chest however reports that most of her symptoms have since resolved. Denies any shortness of breath. Plan: 04:45PM - patient was waiting to be seen in the emergency room for approximately 2 hours prior to being seen by provider, labs were not ordered at this time. Patient is well-appearing, vital signs within normal limits. EKG normal sinus rhythm with Q-waves seen in leads 3 as well as flipped T-wave in V1. Labs, EKG, chest x-ray ordered. She does have some slight discomfort in her epigastrium. She had a cholecystectomy. No rebound or guarding. She is stable at this time, will continue to closely monitor with symptomatic changes Differential Diagnosis Differential Diagnoses: The differential diagnosis associated with the presentation includes ACS, anxiety, panic disorder, PE-unlikely Admission/Observation Consideration of admission/observation: Escalation of care including admission/observation considered Lab Data MDM Lab Attestation statement: I reviewed the patient's lab results. 12/03/23 16:58 01/09/24 16:53 Labs: Lab Results 12/03/23 12/03/23 12/03/23 Range/Units 16:53 16:58 18:20 WBC 7.1 (4.8-10.8) X10*3/uL RBC 4.74 (4.20-5.50) X10*6/uL Hgb 12.8 (12.0-16.0) g/dl Hct 39.4 (37.0-47.0) % MCV 83.1 (80.0-98.0) fL MCH 27.0 (27.0-33.0) pg MCHC 32.5 (31.0-35.0) g/dl RDW 14.9 (11.0-16.0) % Plt Count 247 (160-400) X10*3/uL MPV 9.2 L (9.4-12.3) fL Immature Gran % (Auto) 0.3 (0.0-0.4) % Neut % (Auto) 59.6 (45-73) % Lymph % (Auto) 30.8 (20-40) % [place] % (Auto) 6.6 (2-11) % Eos % (Auto) 2.1 (0-4) % Baso % (Auto) 0.6 (0-2) % Lymph # (Auto) 2.2 (1.2-4.9) X10*3/uL [place] # (Auto) 0.5 (0.1-1.2) X10*3/uL Eos # (Auto) 0.2 (0.0-0.4) X10*3/uL Baso # (Auto) 0.0 (0.0-0.2) X10*3/uL Abs Immat Gran (auto) 0.02 (0.00-0.03) X10*3/uL Absolute Neuts (auto) 4.2 (2.0-8.3) x10*3/uL Absolute Nucleated RBC 0.000 (0.0-0.012) X10*3/uL Nucleated RBC % (auto) 0.0 (0.0-0.2) /100WBC D-Dimer High Sensitivty 236 NG/ML Sodium 142 (135-145) mmol/L Potassium 3.8 (3.3-5.1) mmol/L Chloride 109 H (96-108) mmol/L Carbon Dioxide 22 (22-29) mmol/L Anion Gap 15 (12-20) BUN 14 (9-16) mg/dL Creatinine 0.66 (0.5-1.4) mg/dL Estim Creat Clear Calc 88.7 Estimated GFR > 60 Random Glucose 88 (60-115) mg/dL Calcium 9.9 (8.4-10.2) mg/dL Magnesium 2.2 (1.6-2.6) mg/dL Total Bilirubin 0.3 (0.0-1.0) mg/dL Direct Bilirubin 0.1 (0.0-0.5) mg/dL AST 23 (5-31) U/L ALT 20 (0-31) U/L Alkaline Phosphatase 114 (39-117) U/L Troponin I High Sens < 2.7 (<3.5-17.0) ng/L B-Natriuretic Peptide 19 (<100) pg/mL Total Protein 7.0 (6.5-8.0) g/dL Albumin 4.0 (3.5-5.0) g/dL Lipase 30 (8-78) U/L 12/03/23 Range/Units 20:50 WBC (4.8-10.8) X10*3/uL RBC (4.20-5.50) X10*6/uL Hgb (12.0-16.0) g/dl Hct (37.0-47.0) % MCV (80.0-98.0) fL MCH (27.0-33.0) pg MCHC (31.0-35.0) g/dl RDW (11.0-16.0) % Plt Count (160-400) X10*3/uL MPV (9.4-12.3) fL Immature Gran % (Auto) (0.0-0.4) % Neut % (Auto) (45-73) % Lymph % (Auto) (20-40) % [place] % (Auto) (2-11) % Eos % (Auto) (0-4) % Baso % (Auto) (0-2) % Lymph # (Auto) (1.2-4.9) X10*3/uL [place] # (Auto) (0.1-1.2) X10*3/uL Eos # (Auto) (0.0-0.4) X10*3/uL Baso # (Auto) (0.0-0.2) X10*3/uL Abs Immat Gran (auto) (0.00-0.03) X10*3/uL Absolute Neuts (auto) (2.0-8.3) x10*3/uL Absolute Nucleated RBC (0.0-0.012) X10*3/uL Nucleated RBC % (auto) (0.0-0.2) /100WBC D-Dimer High Sensitivty NG/ML Sodium (135-145) mmol/L Potassium (3.3-5.1) mmol/L Chloride (96-108) mmol/L Carbon Dioxide (22-29) mmol/L Anion Gap (12-20) BUN (9-16) mg/dL Creatinine (0.5-1.4) mg/dL Estim Creat Clear Calc Estimated GFR Random Glucose (60-115) mg/dL Calcium (8.4-10.2) mg/dL Magnesium (1.6-2.6) mg/dL Total Bilirubin (0.0-1.0) mg/dL Direct Bilirubin (0.0-0.5) mg/dL AST (5-31) U/L ALT (0-31) U/L Alkaline Phosphatase (39-117) U/L Troponin I High Sens < 2.7 (<3.5-17.0) ng/L B-Natriuretic Peptide (<100) pg/mL Total Protein (6.5-8.0) g/dL Albumin (3.5-5.0) g/dL Lipase (8-78) U/L Radiology Impression Discussion of test interpretation with radiology: I have reviewed the radiologist's reading. External Record Review External record reviewed: Inpatient record, Office record, Outpatient record, Prior outpatient labs, Prior outpatient radiology, Primary care record and Outside ED record Scores Heart Score History: -1- moderately suspicious ECG: -0- normal Age: -2- > or = 65 Risk factory: -1- 1 or 2 risk factors Troponin: -0- < or = normal limit Score: 4 Risk: 16.6% Discharge Plan Discharge Clinical Impression: Atypical chest pain Patient Disposition: Home, Self-Care Instructions: Chest Pain (ED) Additional Instructions: You were seen in the emergency department due to chest pain and shortness of breath. It is unclear what caused you to have your symptoms today, but your workup today was reassuring. Your chest x-ray, EKG, and labs were normal today. Please follow-up with your primary care physician regarding this visit. I am also giving your referral to Cardiology, call tomorrow to make an appointment. If any new or worsening symptoms occur including but not limited to chest pain, shortness of breath, please return for re-evaluation. Prescriptions: No Action (DME) walker Misc See Rx Instructions .MEDSUPPLY Qty: 1 0RF Rx Instructions: Folding Front wheeled walker rifaximin 550 mg tablet 550 mg PO TID 14 Days Qty: 42 0RF alprazolam 0.25 mg Tablet 0.25 mg PO DAILY PRN (Reason: Anxiety) PreserVision AREDS [id number] Capsule 1 cap PO BEDTIME cholecalciferol (vitamin D3) [Vitamin D3] 125 mcg (5,000 unit) Tablet 125 mcg PO DAILY cyanocobalamin (vitamin B-12) [Vitamin B-12] 2,500 mcg Tablet, Sublingual 2,500 mcg SUBLINGUAL QAM flaxseed oil 1,000 mg capsule 4,000 mg PO DAILY aspirin 81 mg tablet,delayed release (DR/EC) 81 mg PO DAILY magnesium 250 mg tablet 250 mg PO DAILY furosemide [Lasix] 20 mg tablet 20 mg PO QPM paroxetine HCl 40 mg tablet 40 mg PO BEDTIME Referrals: [facility] [place] Cardiovascular Services [Provider Group]
[2023-12-03 17:05] LABS: MANUAL DIFF FLAG NO
[2023-12-03 17:12] LABS: Basophils Percent Auto 0.6 % (0-2); Eosinophils Absolute Auto 0.2 X10*3/uL (0.0-0.4); Eosinophils Percent Auto 2.1 % (0-4); Hematocrit 39.4 % (37.0-47.0); Hemoglobin 12.8 g/dl (12.0-16.0); Imm Gran Abs Auto 0.02 X10*3/uL (0.00-0.03); Imm Gran Pct Auto 0.3 % (0.0-0.4); Lymphocytes Absolute Auto 2.2 X10*3/uL (1.2-4.9); Lymphocytes Percent Auto 30.8 % (20-40); Mean Corpuscular HGB Conc 32.5 g/dl (31.0-35.0); Mean Corpuscular Volume 83.1 fL (80.0-98.0); Mean Platelet Volume 9.2 fL (9.4-12.3); Monocytes Absolute Auto 0.5 X10*3/uL (0.1-1.2); Monocytes Percent Auto 6.6 % (2-11); Neutrophils Absolute Auto 4.2 x10*3/uL (2.0-8.3); Neutrophils Percent Auto 59.6 % (45-73); Platelet Count 247 X10*3/uL (160-400); Red Blood Count 4.74 X10*6/uL (4.20-5.50); Red Cell Distribution Width 14.9 % (11.0-16.0); White Blood Count 7.1 X10*3/uL (4.8-10.8)
[2023-12-03 17:22] LABS: Alanine Aminotransferase 20 U/L (0-31); Alkaline Phosphatase 114 U/L (39-117); Anion Gap 15 (12-20); Aspartate Amino Transferase 23 U/L (5-31); Bilirubin Direct 0.1 mg/dL (0.0-0.5); Bilirubin Total 0.3 mg/dL (0.0-1.0); Blood Urea Nitrogen 14 mg/dL (9-16); Calcium 9.9 mg/dL (8.4-10.2); Carbon Dioxide 22 mmol/L (22-29); Chloride 109 mmol/L (96-108); Creatinine Clr Calc Pharmacy 88.7; Estimated Glomerular Filt Rate > 60; Glucose Random 88 mg/dL (60-115); Lipase 30 U/L (8-78); Magnesium 2.2 mg/dL (1.6-2.6); Potassium 3.8 mmol/L (3.3-5.1); Sodium 142 mmol/L (135-145)
[2023-12-03 17:37] LABS: Troponin-I High Sensitivity < 2.7 ng/L (<3.5-17.0)
[2023-12-03 17:46] LABS: B Type Natriuretic Peptide 19 pg/mL (<100)
[2023-12-03 18:34] LABS: D Dimer High Sensitivity 236 NG/ML
[2023-12-03 18:37] VITALS: BP 106/71; PULSE 68; RESP 18; TEMP 36.6; O2SAT 99
--- NOTE | 2023-12-03 18:56 | PC.NURSE ---
patient a&ox3, c/o chest pressure 6/10, labs drawn by tech, vss, lungs diminished/clear, will continue to monitor.
[2023-12-03 19:31] VITALS: BP 110/54; PULSE 65; RESP 12; O2SAT 97
--- NOTE | 2023-12-03 19:46 | PC.NURSE ---
this rn assumed care of pt. pt transferred from ED xiao to bed 15. pt placed on monitor, 65-68bpm. pt currently denies chest pain at this time.
[2023-12-03 21:17] LABS: Troponin-I High Sensitivity < 2.7 ng/L (<3.5-17.0)
[2023-12-03 22:00] VITALS: BP 111/78; PULSE 86; RESP 20; O2SAT 96
== END 2023-12-03 22:08 | disposition home or self-care (01) ==
PROVIDERS: Physician Assistant Medical; Emergency Provider Emergency Medicine; PCP Physician Assistant
DX: R07.89 Other chest pain (principal); R06.02 Shortness of breath; Z79.899 Other long term (current) drug therapy
CPT/HCPCS: 36415; 71046; 80048; 80076; 83690; 83735; 83880; 84484; 85025; 85379; 93005; 99283; 99284

== ENCOUNTER → 2023-12-03 15:45 | Outpatient (BNV) | payer MEDICARE, SELFPAY | PROVIDERS: Emergency Provider Emergency Medicine; PCP Physician Assistant; Visit Provider Internal Medicine Cardiovascular Disease | DX: R07.9 Chest pain, unspecified (principal) | CPT/HCPCS: 93010 ==

== ENCOUNTER 2023-12-12 10:58 | Outpatient (AMB) | payer MEDICARE, SELFPAY ==
--- NOTE | 2023-12-12 11:02 | A.OFFVIS_ITS ---
Intake Intake Visit Reasons: Right Knee Injection, Last 05/23/23 Intake Note: Maria Antonia is a 68 year old female who presents today for a follow up of the right knee. Last injection 05/23/23. No changes to report. Allergies amoxicillin [AMOXICILLIN] Allergy (Severe, Verified 12/12/23 11:04) severe vomiting pumpkin Allergy (Intermediate, Verified 12/12/23 11:04) Difficulty Breathing adhesive tape Adverse Reaction (Intermediate, Verified 12/12/23 11:04) rash hydrocodone Adverse Reaction (Intermediate, Verified 12/12/23 11:04) dizziness, disorientation Medication List - Last Reconciled 12/12/23 by Suzette Moreno RN alprazolam 0.25 mg PO DAILY PRN aspirin 81 mg PO DAILY cholecalciferol (vitamin D3) (Vitamin D3) 125 mcg PO DAILY cyanocobalamin (vitamin B-12) (Vitamin B-12) 2,500 mcg sublingual QAM flaxseed oil 4,000 mg PO DAILY furosemide (Lasix) 20 mg PO QPM magnesium 250 mg PO DAILY paroxetine HCl 40 mg PO BEDTIME rifaximin 550 mg PO TID 14 days vitamins A,C,E-eimz-gzvnqb 4,296 mcg-226 mg-90 mg (PreserVision AREDS) 1 cap PO BEDTIME walker Folding Front wheeled walker HPI Right Knee Injection, Last 05/23/23 HPI Details Maria Antonia is a 68 year old woman with right knee OA, who presents for a repeat steroid injection. She reports pain with daily activity, and good relief of her symptoms following her previous injection on 05/23/23. [facility] Medical History Lumbar herniated disc Hypoglycemia GERD (gastroesophageal reflux disease) COVID-19 vaccine series completed Macular degeneration Fluid retention in legs Pancreatitis Renal calculi Osteoarthritis Basal cell carcinoma Hiatal hernia Scoliosis Anxiety Depression Hypertension Surgical History History of right hip replacement History of esophagogastroduodenoscopy (EGD) H/O colonoscopy History of nasal septoplasty History of total left knee replacement History of section History of cholecystectomy History of hysterectomy Family History Father Cancer Mother Rheumatoid arthritis Daughter Crohn's colitis Social History Housing: House Are you a primary urgent care physician assistant to a significant other at home: No Do you presently have visiting nurse or other home services: No Unable to assess alcohol history related to: Unknown Comment: advised to remove before surgery Patient Tobacco Use Status: Former Tobacco user Quit Date: 37 years ago Tobacco use type: Cigarette e-Cigarette/Vaping Use: Never Used Advance Directives Date on File: 06/11/14 service: No 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 Hearing needs: No Vision needs: Yes Review of Systems Const All systems reviewed & are unremarkable except as noted in HPI and below Physical Exam Const General: no acute distress, alert and awake Orientation/consciousness: patient oriented x3 HEENT Head: Yes normocephalic and Yes atraumatic Eyes EOM: EOMs intact bilaterally Resp Effort & Inspection: normal respiratory effort and able to speak in complete sentences Cardio Jugular venous distension: no JVD Skin General skin exam: turgor normal Rashes: no rashes Neuro General: patient oriented x3 Extrem Other: 1+ effusion TTP lateral and medial compartment Psych Appearance: grossly normal Affect: normal affect Attitude: cooperative Office Procedures Joint Injection/Drain Joint Injection/Drain Details: Injected 1 mL of Decadron and 3 mL 1% lidocaine and 3 mL of 0.25% Marcaine. Site was prepped using aseptic technique. Patient tolerated the procedure well. Primary Site: right knee Approach Used: anterolateral Coding 96871 - Large joint Procedure code (CPT) selection complete Assessment & Plan Assessment & Plan (1) Primary osteoarthritis of right knee: Code(s): M17.11 - Unilateral primary osteoarthritis, right knee Plan: Right knee OA. Injections are working and I repeated one today. f/u ~3 months. Plan Prepared for Joaquín Martin MD by Manuel Thomas, medical technologist chief, on 12/12/23 at 11:06 AM, EST. Coding Level of Care Code Est Pt Level 3 (60513) Diagnoses Primary osteoarthritis of right knee M17.11 CPT Codes Coding - Large joint: 15605 - Large joint ([id number])
== END 2023-12-12 11:41 | disposition home or self-care (01) ==
PROVIDERS: PCP Physician Assistant; Visit Provider Orthopaedic Surgery
DX: M17.11 Unilateral primary osteoarthritis, right knee (principal)
CPT/HCPCS: 20610; 99213

== ENCOUNTER → 2023-12-12 10:58 | Outpatient (BNVA) | payer MEDICARE, SELFPAY | PROVIDERS: PCP Physician Assistant; Visit Provider Orthopaedic Surgery | DX: M17.11 Unilateral primary osteoarthritis, right knee (principal) | CPT/HCPCS: 20610; 99212; J0665; J1100 ==

== ENCOUNTER 2023-12-13 12:54 | Outpatient (AMB) | payer MEDICARE, SELFPAY ==
--- NOTE | 2023-12-13 12:57 | A.OFFVIS_ITS ---
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 Required: No Allergies amoxicillin [AMOXICILLIN] Allergy (Severe, Verified 12/13/23 13:01) severe vomiting pumpkin Allergy (Intermediate, Verified 12/13/23 13:01) Difficulty Breathing adhesive tape Adverse Reaction (Intermediate, Verified 12/13/23 13:01) rash hydrocodone Adverse Reaction (Intermediate, Verified 12/13/23 13:01) dizziness, disorientation vicodin Allergy (Intermediate, Uncoded 12/13/23 13:02) Dizziness Medication List - Last Reconciled 12/13/23 by Lexy Green NP-Antionette aspirin 81 mg PO DAILY cholecalciferol (vitamin D3) (Vitamin D3) 125 mcg PO DAILY cyanocobalamin (vitamin B-12) (Vitamin B-12) 2,500 mcg sublingual QAM flaxseed oil 4,000 mg PO DAILY furosemide (Lasix) 20 mg PO QPM magnesium 250 mg PO DAILY paroxetine HCl 40 mg PO BEDTIME vitamins A,C,Z-qnqz-lvihmu 4,296 mcg-226 mg-90 mg (PreserVision AREDS) 1 cap PO BEDTIME walker Folding Front wheeled walker 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 She ruled out for ACS. She wa s referred to Cardiology in follow-up. Today she presents for her cardiology consultation. She states she has never had a heart problem in the past. She describes herself as being healthy and act kalyan. She states she was in her normal state of health on the day of the ER visit. She was in the grocery store and developed a sudden onset heaviness in her chest. She has never had a symptom like this in the past. She thought she was having a heart attack. She called EMS. They gave her aspirin and nitroglycerin with some improvement in her symptom. ED evaluation with no acute findings. She tells me that the following day she tested positive for COVID. She describes being very ill with primarily respiratory symptoms. She is now fully recovered. She has no recurrent chest pressure, no chest pains at rest or with activity. No shortness of breath, lightheadedness, presyncope, syncope, PND, orthopnea or edema. She is concerned about the condition of her heart. No family history of coronary artery disease. Remote history of smoking. No alcohol use. COUNT INCLUDES THE [facility] Medical History Lumbar herniated disc Hypoglycemia GERD (gastroesophageal reflux disease) COVID-19 vaccine series completed Macular degeneration Fluid retention in legs Pancreatitis Renal calculi Osteoarthritis Basal cell carcinoma Hiatal hernia Scoliosis Anxiety Depression Hypertension Surgical History History of right hip replacement History of esophagogastroduodenoscopy (EGD) H/O colonoscopy History of nasal septoplasty History of total left knee replacement History of section History of cholecystectomy History of hysterectomy Family History Father Cancer Mother Rheumatoid arthritis Daughter Crohn's colitis Social History Housing: House Are you a primary workforce investment act career manager to a significant other at home: No Do you presently have visiting nurse or other home services: No Unable to assess alcohol history related to: Unknown Comment: advised to remove before surgery Patient Tobacco Use Status: Former Tobacco user Quit Date: 37 years ago Tobacco use type: Cigarette e-Cigarette/Vaping Use: Never Used Advance Directives Date on File: 06/11/14 service: No 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 Hearing needs: No Vision needs: Yes Review of Systems Const All systems reviewed & are unremarkable except as noted in HPI and below ENT Denies dizziness Card Details: chest pressure episode Denies chest pain, Denies chest pain at rest, Denies chest pain with activity, Denies rapid heart rate, Denies pedal edema, Denies edema, Denies leg edema, De nies lightheadedness, Denies palpitations, Reports dyspnea, Denies dyspnea on exertion and Denies orthopnea Resp Denies cough, Reports dyspnea and Denies dyspnea on exertion GI Denies hematochezia and Denies change in stool character Musc Denies abnormal gait, Denies limited range of motion, Denies muscle cramps, Denies muscle weakness, Denies numbness, Denies radiating pain into limb, Denies stiffness and Denies tingling Neuro Denies abnormal gait, Denies dizziness, Denies numbness and Denies tingling Endo Denies palpitations Physical Exam Vital Signs: Last Vital Signs BP 114/72 12/13/23 12:58 BMI result Body Mass Index 33.1 Const General: cooperative, healthy appearing, comfortable and no acute distress Orientation/consciousness: patient oriented x3 Neck Neck: Yes normal visual inspection Resp Effort & Inspection: normal respiratory effort Auscultation: clear to auscultation bilaterally, no rales, no rhonchi and no wheezes Cardio Jugular venous distension: no JVD Rate: regular rate Rhythm: regular rhythm Heart sounds: S1 normal heart sound present, S2 normal heart sound present, no murmurs and no rubs Neuro General: patient oriented x3 Extrem General: Yes normal to inspection and No no pedal edema Psych Appearance: grossly normal Mental Status: mental status grossly normal Speech and movement: Normal speech and movement present Assessment & Plan Assessment & Plan (1) Chest discomfort: Code(s): R07.89 - Other chest pain Plan: Report of sudden onset chest heaviness as described above. ED evaluation showed no ACS. Troponin normal x2. D-dimer very slight elevation, BNP normal. Chest x-ray no acute findings. EKG showing no acute ST or T-wave abnormalities. Her symptom had improved some after nitroglycerin and aspirin. She had only minor soreness reported in the emergency room. She tells me the next day she started with respiratory symptoms and tested positive for COVID. She describes being very ill with COVID, primarily respiratory symptoms. She is now fully recovered. She has not had recurrent chest symptoms. She still expresses concern about the condition of her heart. She exercises routinely at home. Wi ll order an exercise stress test to evaluate for any ischemia. Will check a echocardiogram to assess for any structural heart disease. Cardiology follow-up in 1 month, sooner if needed. Emergency care if ever needed for recurrent symptoms. Signs and symptoms of angina reviewed. (2) Hyperlipidemia: Code(s): E78.5 - Hyperlipidemia, unspecified Plan: History of hyperlipidemia. Labs done 01/04/2023 showed LDL 146. Ideally LDL should be less than 100. If found to have CAD then goal will be less than 70. She is not on statin medication. Recommend recheck of fasting lipids at this time as it has been nearly a year. Plan Time spent on chart review, documentation, interview assess Orders: Orders CA echo transthoracic complete Today R07.89 - Other chest pain CA stress test Today R07.89 - Other chest pain Coding Level of Care Code New Pt Level 3 (81498) Diagnoses Chest discomfort R07.89 Hyperlipidemia E78.5 Time Spent (min) 26
[2023-12-13 12:58] VITALS: BP 114/72; PULSE 84; BMI 33.1
== END 2023-12-13 13:40 | disposition home or self-care (01) ==
PROVIDERS: PCP Physician Assistant; Visit Provider Nurse Practitioner Family
DX: R07.89 Other chest pain (principal); E78.5 Hyperlipidemia, unspecified
CPT/HCPCS: 99203

== ENCOUNTER → 2023-12-13 12:54 | Outpatient (BNVA) | payer MEDICARE, SELFPAY | PROVIDERS: PCP Physician Assistant; Visit Provider Nurse Practitioner Family | DX: R07.89 Other chest pain (principal); E78.5 Hyperlipidemia, unspecified | CPT/HCPCS: 99202 ==

== ENCOUNTER 2024-01-08 13:32 | Outpatient (AMB) | payer MEDICARE, SELFPAY ==
--- NOTE | 2024-01-08 13:34 | A.OFFVIS_ITS ---
Intake Vital Signs 01/08/24 13:35 Height 5 ft 5 in Weight 203 lb BMI 33.8 BP 118/72 Blood Pressure Location Lt brachial Position Sitting Pulse 98 Pulse Source Monitor Intake Visit Reasons: Acute pancreatitis without necrosis or infection Intake Note: Patient states she's still experiencing frequent bloating, nausea and constipation. 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 Patient reports history of recurrent pancreatitis over the past 6-8 year. Also describes an admission in 2018 for acute pancreatitis. However, labs reviewed and lipase was 158 at that time, <x3UNL with normal pancreas on the CT scan. Apart from that 1 mildly elevated lipase, she has never had any other lipase elevation since then. In terms of her abdominal bloating, reports feeling abdominal distention with discomfort on an almost every day basis for many years now. Was previously under care of Dr. Carlisle, then switch provider to Dr. Flores in [place]. Has had endoscopy and colonoscopy in the past. Eating habits reviewed, and are significant for daily gum/mint use. Wheat and dairy. Is also mostly constipated, and takes a small dose of fiber every day. Does not report improvement in bloating after passing bowel movement. Was recently prescribed rifaximin for possible SIBO but reports no improvement. EGD 2017 (Dr Carlisle) bile reflux gastritis [place] 2020 (Dr Flores) x 3 tubular adenomas ---reported by pt, records not available. [facility] Medical History Lumbar herniated disc Hypoglycemia GERD (gastroesophageal reflux disease) COVID-19 vaccine series completed Macular degeneration Fluid retention in legs Pancreatitis Renal calculi Osteoarthritis Basal cell carcinoma Hiatal hernia Scoliosis Anxiety Depression Hypertension Surgical History History of right hip replacement History of esophagogastroduodenoscopy (EGD) H/O colonoscopy History of nasal septoplasty History of total left knee replacement History of section History of cholecystectomy History of hysterectomy Family History Father Cancer Mother Rheumatoid arthritis Daughter Crohn's colitis Social History Housing: House Are you a primary career and technology education teacher to a significant other at home: No Do you presently have visiting nurse or other home services: No Unable to assess alcohol history related to: Unknown Comment: advised to remove before surgery Patient Tobacco Use Status: Former Tobacco user Quit Date: 37 years ago Tobacco use type: Cigarette e-Cigarette/Vaping Use: Never Used Advance Directives Date on File: 06/11/14 service: No 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 Hearing needs: No Vision needs: Yes Review of Systems Const All systems reviewed & are unremarkable except as noted in HPI and below Physical Exam Vital Signs: Last Vital Signs Pulse 98 01/08/24 13:35 BP 118/72 01/08/24 13:35 BMI result Body Mass Index 33.8 No acute distress, appears comfortable Abdomen soft but distended No overt respiratory distress Alert oriented x3, no focal deficit Gait normal Assessment & Plan Assessment & Plan (1) Abdominal distension: Code(s): R14.0 - Abdominal distension (gaseous) (2) Chronic constipation: Code(s): K59.09 - Other constipation (3) Personal history of colonic polyps: Code(s): Z86.010 - Personal history of colonic polyps Plan #Abd bloating with belching Discussed that abdominal bloating and distention appears to be a combination of aerophagia from excessive gum chewing, excessive gas production due to constipation and high FODMAP diet. SIBO with typically cause diarrhea, instead of constipation. Recommend: -minimize gum chewing -low FODMAP diet handout provided -management of constipation, increase fiber intake to at least 15-20 g per day. If suboptimal response, can add senna 30 minutes before breakfast #?recurrent pancreatitis Patient was reassured, that based on review of the data so far, no evidence of recurrent acute pancreatitis. However, if she were to get recurrent episode of severe abdominal pain with nausea and vomiting, would suggest going to the emergency room to get evaluated. # personal history of polyps: Due for colonoscopy this year. Patient requests to be booked in fall. Message sent to the schedulers. PEG prep sent and instructions reviewed on a handout. Follow up 6 months Medications: New peg 3350-electrolytes 236-22.74-6.74 -5.86 gram (Golytely) as per split prep instructions, until fecal effluent is clear 240 mL PO Q10M 4,000 mL 0RF colonoscopy Coding Level of Care Code New Pt Level 4 (19943) Diagnoses Abdominal distension R14.0 Chronic constipation K59.09 Personal history of colonic polyps Z86.010
[2024-01-08 13:35] VITALS: BP 118/72; PULSE 98; BMI 33.8
== END 2024-01-08 14:25 | disposition home or self-care (01) ==
PROVIDERS: PCP Physician Assistant; Visit Provider Internal Medicine
DX: R14.0 Abdominal distension (gaseous) (principal); K59.09 Other constipation; Z86.010 Personal history of colon polyps
CPT/HCPCS: 99204

== ENCOUNTER → 2024-01-08 13:32 | Outpatient (BNVA) | payer MEDICARE, SELFPAY | PROVIDERS: PCP Physician Assistant; Visit Provider Internal Medicine | DX: K59.09 Other constipation (principal); R14.0 Abdominal distension (gaseous); Z86.010 Personal history of colon polyps | CPT/HCPCS: 99202 ==

== ENCOUNTER → 2024-01-14 08:41 | Outpatient (REF) | payer MEDICARE, SELFPAY ==
--- NOTE | 2024-01-14 08:45 | CA_ITS ---
Transthoracic Echocardiogram Patient (Last, First, Middle): Maria Antonia Miranda, Gender: Female Date of : 1955 Age: 68 Procedure Date: 01/14/2024 Procedure Type: Transthoracic Echocardiogram Location: OP Height: 167.64 cm Weight: 92.08 kg BSA: 2.01 m2 Heart Rate: 82 bpm BP: 118 / 73 mmHg Technical Specialist Cytogenetics: YOUNG Referring MD: Lexy Green UNIT SUPPORT REPRESENTATIVE-C Toppiece Chopper: Medhat Crespo MD Symptoms: R07.89 - Other chest pain Study Quality: Adequate ECG Rhythm: Sinus Conclusions: - 1. Normal LV ejection fraction of 60 65% with grade 1 diastolic dysfunction 2. Mild fibrocalcific aortic valve changes noted with normal cardiac valvular Doppler 3. Normal RV systolic pressure 4. No gross pericardial effusion Findings Procedure Information The quality of the study was technically difficult. The study quality is limited by patients body habitus and lung artifact. Left Ventricle Normal left ventricular size, thickness, and systolic function. The visually estimated ejection fraction is between 60-65%. Spectral Doppler is indicative of an impaired relaxation filling pattern. E/E prime ratio is <8, consistent with normal filling pressures. Evidence suggests grade I (mild) diastolic dysfunction. Right Ventricle Normal right ventricular cavity size and systolic function. Atria Both atria are normal in size. There is no evidence of interatrial shunt. Aortic Valve There is mild calcification of the aortic valve. There is no aortic valve stenosis. There is no aortic valve regurgitation. Mitral Valve Normal mitral valve structure and function. There is trace mitral valve regurgitation. There is no mitral valve stenosis. Pulmonic Valve The pulmonic valve is likely normal. Tricuspid Valve Normal tricuspid valve structure. There is trace tricuspid valve regurgitation. The right ventricular systolic pressure is normal. The right ventricular systolic pressure is 21 mmHg. Normal right atrial pressure. There is no evidence of pulmonary hypertension. Great Vessels All visible segments of the aorta are normal in size. The pulmonary artery was not well visualized. There is no dilatation of the ascending aorta measuring 3.10 cm. Venous The inferior vena cava is normal in size and collapses greater than 50% with inspiration. Pericardium/Pleural There is no evidence of pericardial effusion. Prior Study Comparison No prior study available for comparison. Measurements 2D Linear Measurements IVSd: 1.18 0.6-0.9/0.6-1.0 cm LVIDd: 3.50 3.9-5.3/4.2-5.9 cm LVIDd Index: 1.74 2.4-3.2/2.2-3.1 cm/m2 LVIDs: 2.28 2.0-3.6 cm LVPWd: 0.82 0.7-1.1 cm LA Diam: 3.40 2.7-3.8/3.0-4.0 cm LAIDs Index: 1.69 1.5-2.3 cm/m2 LV Mass: 128.25 67-162/88-224 g LV Mass Index: 63.81 43-95/49-115 g/m2 LVOT Diam: 2.20 3.0+(-)1.3 cm 2D Systolic Function EF 4C: 56.00 >55% EF 2C: 69.40 >55% EF BiP: 61.20 >55% Mitral Valve MV Pk E: 0.50 MV PK A: 0.57 MV Decel Time: 206.00 E/A: 0.90 E'Lateral: 7.29 E'Medial: 4.90 E/E' Med: 10.10 E/E' Lat: 6.80 PHT: 60.00 MVA PHT: 3.67 Decel Mcpherson: 2.41 Aortic Valve AoV Pk Drew: 1.09 AoV Pk Grad: 5.00 NALINI: 3.70 LVOT LVOT Pk Drew: 1.06 LVOT Mn Drew: 0.70 LVOT VTI: 0.20 LVOT Pk Grad: 4.00 LVOT Mn Grad: 2.00 LVOT Diam: 2.20 LVOT Area: 3.80 Diastolic Function MV Pk E: 0.50 MV Pk A: 0.57 E/A: 0.90 E'Medial: 4.90 E/E' Med: 10.10 E' Laterial: 7.29 E/E' Lat: 6.80 Right Ventricle TAPSE (mm): 24.40 TVS' Drew: 10.90 Tricuspid Valve TR Pk Drew: 2.10 TR Pk Grad: 18.00 RA Press: 3.00 RVSP: 21.00 Great Vessels Aorta Sinus of Valsalva: 3.20 2.0-3.5 cm Ao Asc: 3.10 2.1-3.4 cm Pulmonary Valve PV Pk Drew: 0.70 Peak PV Grad: 2.00 Updated in Other Vendor System with Status of Final Medhat Crespo MD electronically signed on 01/15/2024 4:16:27 PM with status of Final
--- NOTE | 2024-01-14 08:45 | CA_ITS ---
Acquisition Time: 2024-01-14 09:44:16 Total Exercise Time: 00:06:18 Test Indications: CHEST PAIN Medications: ASA LASIX Protocol: ANTONY Max HR: 131 BPM 87% of Pred: 150 BPM Max BP: 172/078 mmHG Max Work Load: 7.4 METS Exercise stress test exercise 6 min 18 sec of Antony protocol achieving 87% MPHR without anginal symptoms, with isolated PVC and PAC, with normotensive response to exercise, without EKG changes. Test reviewed with Dr. Crespo Referred By: Lexy Green Overread By: Deisy Beaver
== END ==
LOC: HO.CARD 08:41
PROVIDERS: Absent Provider Physician Assistant; PCP Physician Assistant; Visit Provider Nurse Practitioner Family
DX: R07.89 Other chest pain (principal); R55 Syncope and collapse
CPT/HCPCS: 93017; 93306

== ENCOUNTER → 2024-01-14 08:45 | Outpatient (BNV) | payer MEDICARE, SELFPAY | PROVIDERS: Absent Provider Physician Assistant; PCP Physician Assistant; Visit Provider Nurse Practitioner | DX: I35.8 Other nonrheumatic aortic valve disorders (principal); R07.89 Other chest pain | CPT/HCPCS: 93016; 93018; 93306 ==

== ENCOUNTER 2024-01-17 12:51 | Outpatient (AMB) | payer MEDICARE, SELFPAY ==
--- NOTE | 2024-01-17 12:28 | MHC.OFFVIS ---
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 Allergies amoxicillin [AMOXICILLIN] Allergy (Severe, Verified 01/17/24 12:59) severe vomiting pumpkin Allergy (Intermediate, Verified 01/17/24 12:59) Difficulty Breathing adhesive tape Adverse Reaction (Intermediate, Verified 01/17/24 12:59) rash hydrocodone Adverse Reaction (Intermediate, Verified 01/17/24 12:59) dizziness, disorientation vicodin Allergy (Intermediate, Uncoded 01/17/24 12:59) Dizziness Medication List - Last Reconciled 01/17/24 by Lexy Green, THERAPEUTIC CASE MANAGER-C aspirin 81 mg PO DAILY cholecalciferol (vitamin D3) (Vitamin D3) 125 mcg PO DAILY cyanocobalamin (vitamin B-12) (Vitamin B-12) 2,500 mcg sublingual QAM flaxseed oil 4,000 mg PO DAILY furosemide (Lasix) 20 mg PO DAILY magnesium 250 mg PO DAILY paroxetine HCl 40 mg PO BEDTIME peg 3350-electrolytes 236-22.74-6.74 -5.86 gram (Golytely) 240 mL PO Q10M vitamins A,C,Y-kyye-xthuck 4,296 mcg-226 mg-90 mg (PreserVision AREDS) 1 cap PO BEDTIME walker Folding Front wheeled walker HPI 4 week f/u/ Echo HPI Details Maria Antonia is a 68-year-old female past medical history of hyperlipidemia, recent episode of chest heaviness then testing positive for COVID the following day who underwent cardiac evaluation and now presents for follow-up. Today she reports she has been doing very well since her last visit. She has not had any recurrent chest discomfort. She now believes her symptom may have been more GI related. She does have a history of having pancreatitis in the past. She is denying any recent abdominal discomfort. No shortness of breath, palpitations, presyncope, syncope, PND, orthopnea or edema. She reports good activity tolerance. [facility] Medical History Lumbar herniated disc Hypoglycemia GERD (gastroesophageal reflux disease) COVID-19 vaccine series completed Macular degeneration Fluid retention in legs Pancreatitis Renal calculi Osteoarthritis Basal cell carcinoma Hiatal hernia Scoliosis Anxiety Depression Hypertension Surgical History History of right hip replacement History of esophagogastroduodenoscopy (EGD) H/O colonoscopy History of nasal septoplasty History of total left knee replacement History of section History of cholecystectomy History of hysterectomy Family History Father Cancer Mother Rheumatoid arthritis Daughter Crohn's colitis Social History Housing: House Are you a primary primary care physician to a significant other at home: No Do you presently have visiting nurse or other home services: No Unable to assess alcohol history related to: Unknown Comment: advised to remove before surgery Patient Tobacco Use Status: Former Tobacco user Quit Date: 37 years ago Tobacco use type: Cigarette e-Cigarette/Vaping Use: Never Used Advance Directives Date on File: 06/11/14 service: No 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 Hearing needs: No Vision needs: Yes Review of Systems Const All systems reviewed & are unremarkable except as noted in HPI and below ENT Denies dizziness Card Denies chest pain, Denies chest pain at rest, Denies chest pain with activity, Denies rapid heart rate, Denies pedal edema, Denies edema, Denies leg edema, Denies lightheadedness, Denies palpitations, Denies dyspnea, Denies dyspnea on exertion and Denies orthopnea Resp Denies cough, Denies dyspnea and Denies dyspnea on exertion GI Denies hematochezia and Denies change in stool character Musc Denies abnormal gait, Denies limited range of motion, Denies muscle cramps, Denies muscle weakness, Denies numbness, Denies radiating pain into limb, Denies stiffness and Denies tingling Neuro Denies abnormal gait, Denies dizziness, Denies numbness and Denies tingling Endo Denies palpitations Physical Exam Vital Signs: Last Vital Signs Pulse 93 01/17/24 12:56 BP 120/82 01/17/24 12:56 BMI result Body Mass Index 33.4 Const General: cooperative, healthy appearing, comfortable and no acute distress Orientation/consciousness: patient oriented x3 Neck Neck: Yes normal visual inspection and Yes no JVD Resp Effort & Inspection: normal respiratory effort Auscultation: clear to auscultation bilaterally, no crackles, no rales, no rhonchi and no wheezes Cardio Jugular venous distension: no JVD Rate: regular rate Rhythm: regular rhythm Heart sounds: S1 normal heart sound present, S2 normal heart sound present, no gallops, no murmurs and no rubs Peripheral pulses: Peripheral pulses 2+ throughout Neuro General: patient oriented x3 Extrem General: Yes normal to inspection, No no pedal edema and No calf tenderness Psych Appearance: grossly normal Mental Status: mental status grossly normal Speech and movement: Normal speech and movement present Assessment & Plan Assessment & Plan (1) Chest discomfort: Code(s): R07.89 - Other chest pain Plan: On last visit she reported an episode of sudden onset chest heaviness while in the grocery store and EMS was called. ED evaluation showed no ACS. Troponin normal x2. D-dimer very slight elevation, BNP normal. EKG showing no acute ST or T-wave abnormalities. She told me the next day she started with respiratory symptoms and tested positive for COVID. She describes being very ill with COVID, primarily respiratory symptoms. She is fully recovered. She has not had recurrent chest symptoms. She had an echocardiogram on 01/14/2024 showing EF 60-65%, grade 1 diastolic dysfunction. An exercise stress test on 01/14/2024 showed exercise just over 6 minutes with no anginal symptoms and no EKG changes of ischemia. Test results reviewed with her. No evidence that her chest discomfort was cardiac in nature. She has no anginal sounding symptoms at this time. Cardiac risk factor modification discussed. Signs and symptoms of angina reviewed with her. Cardiology follow-up only if needed. (2) Hyperlipidemia: Code(s): E78.5 - Hyperlipidemia, unspecified Plan: History of hyperlipidemia. Labs done 01/04/2023 showed LDL 146. Ideally LDL should be less than 100. Discussed with her last visit and she was having her PCP update her lipid profile. Plan Time spent on chart review, documentation, interview assess Coding Level of Care Code Est Pt Level 3 (32742) Diagnoses Chest discomfort R07.89 Hyperlipidemia E78.5 Time Spent (min) 22
[2024-01-17 12:56] VITALS: BP 120/82; PULSE 93; BMI 33.4
== END 2024-01-17 13:17 | disposition home or self-care (01) ==
PROVIDERS: PCP Physician Assistant; Visit Provider Nurse Practitioner Family
DX: R07.89 Other chest pain (principal); E78.5 Hyperlipidemia, unspecified
CPT/HCPCS: 99213

== ENCOUNTER → 2024-01-17 12:51 | Outpatient (BNVA) | payer MEDICARE, SELFPAY | PROVIDERS: PCP Physician Assistant; Visit Provider Nurse Practitioner Family | DX: R07.89 Other chest pain (principal); E78.5 Hyperlipidemia, unspecified | CPT/HCPCS: 99212 ==

== ENCOUNTER 2024-05-07 11:23 | Outpatient (AMB) | payer MEDICARE, SELFPAY ==
--- NOTE | 2024-05-07 11:30 | MHC.OFFVIS ---
Intake Visit Reasons: Right Knee Injection - Last Inj 12/12/23 Intake Note: Maria Antonia is a 68 year old female who presents today for a follow up of the right knee. Last injection 12/12/23. She would like to repeat injection today Allergies amoxicillin [AMOXICILLIN] Allergy (Severe, Verified 01/17/24 12:59) severe vomiting pumpkin Allergy (Intermediate, Verified 01/17/24 12:59) Difficulty Breathing adhesive tape Adverse Reaction (Intermediate, Verified 01/17/24 12:59) rash hydrocodone Adverse Reaction (Intermediate, Verified 01/17/24 12:59) dizziness, disorientation vicodin Allergy (Intermediate, Uncoded 01/17/24 12:59) Dizziness HPI HPI Right Knee Injection - Last Inj 12/12/23: Details: Maria Antonia is a 68 year old female who presents today for a follow up of the right knee. Last injection 12/12/23. She would like to repeat injection today. The prior injection was helpful for several months. She has known right knee OA. She has pain with extended activity and with climbing stairs, eneven ground. [facility] Medical History Lumbar herniated disc Hypoglycemia GERD (gastroesophageal reflux disease) COVID-19 vaccine series completed Macular degeneration Fluid retention in legs Pancreatitis Renal calculi Osteoarthritis Basal cell carcinoma Hiatal hernia Scoliosis Anxiety Depression Hypertension Surgical History History of right hip replacement History of esophagogastroduodenoscopy (EGD) H/O colonoscopy History of nasal septoplasty History of total left knee replacement History of section History of cholecystectomy History of hysterectomy Family History Father Cancer Mother Rheumatoid arthritis Daughter Crohn's colitis Social History Housing: House Are you a primary intensive care medicine specialist to a significant other at home: No Do you presently have visiting nurse or other home services: No Unable to assess alcohol history related to: Unknown Comment: advised to remove before surgery Patient Tobacco Use Status: Former Tobacco user Tobacco use type: Cigarette e-Cigarette/Vaping Use: Never Used Advance Directives Date on File: 06/11/14 service: No 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 Hearing needs: No Vision needs: Yes Physical Exam Const General: no acute distress, alert and awake Orientation/consciousness: patient oriented x3 HEENT Head: Yes normocephalic and Yes atraumatic Eyes EOM: EOMs intact bilaterally Resp Effort & Inspection: normal respiratory effort and able to speak in complete sentences Cardio Jugular venous distension: no JVD Skin General skin exam: turgor normal Rashes: no rashes Neuro General: patient oriented x3 Extrem Other: 1+ effusion TTP lateral and medial compartment Psych Appearance: grossly normal Affect: normal affect Attitude: cooperative Office Procedures Joint Injection/Drain Joint Injection/Drain Details: Injected 1 mL of Decadron and 3 mL 1% lidocaine and 3 mL of 0.25% Marcaine. Site was prepped using aseptic technique. Patient tolerated the procedure well. Primary Site: right knee Approach Used: anterolateral Coding - Large joint Procedure code (CPT) selection complete Results Reviewed Results Reviewed: I personally reviewed relevant radiographs. Tricompartmental OA right knee Assessment & Plan Assessment & Plan (1) Status post total replacement of right hip: Code(s): Z96.641 - Presence of right artificial hip joint Category: Surgical Plan: Right hip is doing well. She has no complaints. (2) Primary osteoarthritis of right knee: Code(s): M17.11 - Unilateral primary osteoarthritis, right knee Category: Medical Plan: I injected her right knee today. May follow up as needed. Coding Level of Care Code Est Pt Level 3 (96125) Diagnoses Status post total replacement of right hip Z96.641 Primary osteoarthritis of right knee M17.11 CPT Codes Coding - Large joint: 68867 - Large joint ([id number])
== END 2024-05-07 16:14 | disposition home or self-care (01) ==
PROVIDERS: PCP Physician Assistant; Visit Provider Orthopaedic Surgery
DX: M17.11 Unilateral primary osteoarthritis, right knee (principal); Z96.641 Presence of right artificial hip joint
CPT/HCPCS: 20610; 99213

== ENCOUNTER → 2024-05-07 11:23 | Outpatient (BNVA) | payer MEDICARE, SELFPAY | PROVIDERS: PCP Physician Assistant; Visit Provider Orthopaedic Surgery | DX: M17.11 Unilateral primary osteoarthritis, right knee (principal); Z96.641 Presence of right artificial hip joint; Z96.652 Presence of left artificial knee joint | CPT/HCPCS: 20610; 99212; J0665; J1100 ==

== ENCOUNTER 2024-06-01 10:36 | Outpatient (AMB) | payer MEDICARE, SELFPAY ==
--- NOTE | 2024-06-01 10:41 | MHC.OFFWIV ---
Intake Vital Signs 06/01/24 10:49 BMI Reason not done Patient refused/unable BP 110/74 Blood Pressure Location Lt brachial Position Sitting Respiration 16 Pulse 87 Pulse Source Pulse Oximeter Temp 98.1 F Temp Source Oral Pulse Oximetry (%) 95 Oxygen Delivery Method Room Air Intake Visit Reasons: Possible strep throat Intake Note: Sore throat and tightness in the chest. Was covid negative last Saturday, home test. Patient Tobacco Use Status: Former Tobacco user Allergies amoxicillin [AMOXICILLIN] Allergy (Severe, Verified 06/01/24 10:57) severe vomiting pumpkin Allergy (Intermediate, Verified 06/01/24 10:57) Difficulty Breathing adhesive tape Adverse Reaction (Intermediate, Verified 06/01/24 10:57) rash hydrocodone Adverse Reaction (Intermediate, Verified 06/01/24 10:57) dizziness, disorientation vicodin Allergy (Intermediate, Uncoded 06/01/24 10:45) Dizziness Medication List - Last Reconciled 06/01/24 by Mirela Cabrera, CONTRACT SHELTERED WORKSHOP SUPERVISOR- aspirin 81 mg PO DAILY cholecalciferol (vitamin D3) (Vitamin D3) 125 mcg PO DAILY cyanocobalamin (vitamin B-12) (Vitamin B-12) 2,500 mcg sublingual QAM flaxseed oil 3,000 mg PO DAILY furosemide (Lasix) 20 mg PO DAILY PRN 30 days magnesium 250 mg PO DAILY paroxetine HCl 40 mg PO BEDTIME walker Folding Front wheeled walker Do you need a note to return to daycare/school/sports/work: No HPI HPI Comments History of Present Illness Details 1 week ago started with cough, sore throat, heavy chest cough is pretty much resolved now along w/ heavy chest her throat cont to hurt, painful swallowing, feels like glands are swollen negative home covid test 1 week ago vicks vapor rub without much relief using cough gtts & gargling w/ listerine w/o relief Also complains of a rash underneath bilat breasts. Has been using hkdp-jyb-jfuichy powder which has made the rash worse. Awake alert NAD Sclera and conjunctiva clear bilat Nares patent, turbinates pale and edematous, + sinus tenderness with palpation Right max and frontal TM intact & clear left, intact and erythematous on R MMM, pharynx mild erythema w/o exudate, shotty ac adenopathy bilat strep negative RRR LS CTAB. Did c/o dizziness when taking multiple deep breaths that cleared w/in seconds. Fungal rash under bilat breasts Plan: Flonase and azithromycin to treat suspected sinusitis. Sore throat likely related to postnasal drip. Nystatin powder for fungal rash. Do not use tmed-pje-cawzfon powder. Keep skin clean and dry. Return to office in 1 week for re-evaluation to ensure that you are feeling back to baseline, sooner as needed. This note is constructed using voice recognition software. While every effort has been made to ensure accuracy in printing grey cloth tender, still errors may have been included Sometimes, these errors may affect the content or meaning of the given sentence . [facility] Medical History Lumbar herniated disc Hypoglycemia GERD (gastroesophageal reflux disease) COVID-19 vaccine series completed Macular degeneration Fluid retention in legs Pancreatitis Renal calculi Osteoarthritis Basal cell carcinoma Hiatal hernia Scoliosis Anxiety Depression Hypertension Surgical History History of right hip replacement History of esophagogastroduodenoscopy (EGD) H/O colonoscopy History of nasal septoplasty History of total left knee replacement History of section History of cholecystectomy History of hysterectomy Family History Father Cancer Mother Rheumatoid arthritis Daughter Crohn's colitis Social History Housing: House Are you a primary care rep to a significant other at home: No Do you presently have visiting nurse or other home services: No Unable to assess alcohol history related to: Unknown Comment: advised to remove before surgery Patient Tobacco Use Status: Former Tobacco user Tobacco use type: Cigarette e-Cigarette/Vaping Use: Never Used Advance Directives Date on File: 06/11/14 service: No 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 (2) Post-nasal drip: Code(s): R09.82 - Postnasal drip Plan: . (3) Fungal rash of torso: Code(s): B36.9 - Superficial mycosis, unspecified Plan: . (4) Pharyngitis: Code(s): J02.9 - Acute pharyngitis, unspecified Qualifiers: Pharyngitis/tonsillitis etiology: unspecified etiology Qualified Code(s): J02.9 - Acute pharyngitis, unspecified Plan: . Plan . Orders: Orders AMB Rapid Strep Screen Today J02.9 - Acute pharyngitis, unspecified Medications: New fluticasone propionate 50 mcg/actuation administer into each nostril 1 spray intranasal BID 16 grams 0RF azithromycin For 250 mg dose pack: take 500 mg today (day 1), then 250 mg for 4 days (days 2-5) PO 5 days 6 tabs 0RF nystatin 1 appl topical TID 60 grams 5RF Patient Instructions: What Is It? Sinuses are air-filled spaces behind the bones of the upper face: between the eyes and behind the forehead, nose and cheeks. The lining of the sinuses are made up of cells with tiny hairs on their surfaces called cilia. Other cells in the lining produce mucus. The mucus traps germs and pollutants and the cilia push the mucus out through narrow sinus openings into the nose. When the sinuses become inflamed or infected, the mucus thickens and clogs the openings to one or more sinuses. Fluid builds up inside the sinuses causing increased pressure. Also bacteria can become trapped, multiply and infect the lining. This is sinusitis. Prevention There are some measures you can take to decrease your risk of developing sinusitis. If you smoke cigarettes, you should quit. The smoke can irritate nasal passageways and increase the likelihood of infection. Nasal allergies can trigger sinus infections, too. By identifying the allergen (the substance causing the allergic reaction) and avoiding it, you can help prevent sinusitis. If you have congestion from a cold or allergies, the following may help to reduce the risk of developing sinusitis: Drink lots of water. This thins nasal secretions and keeps mucous membranes moist. Use steam to soothe nasal passages. Breathe deeply while standing in a hot shower, or inhale the vapor from a basin filled with hot water while holding a towel over your head. Avoid blowing your nose with great force, which can push bacteria into the sinuses. Some doctors advise periodic home nasal washings to clear secretions. This may help prevent, and also treat, sinus infections. Treatment Many sinus infections improve without treatment. However, several medications may speed recovery and reduce the chance that an infection will become chronic. Decongestants - Congestion often triggers sinus infections, and decongestants can open the sinuses and allow them to drain. Several are available: Pseudoephedrine (Sudafed) is available without prescription, alone or in combination with other medications in multi-symptom cold and sinus remedies. Pseudoephedrine can cause insomnia, racing pulse and jitteriness. Do not use if you have high blood pressure or a heart condition. Phenylephrine (such as Sudafed PE) is an alternative ylld-sog-ullgqco oral decongestant. If you take products containing oral phenylephrine, check with the pharmacist to be certain there is no interaction with other medications you take. Oxymetazoline (Afrin, Dristan and others) and phenylephrine (Juan Ramon-Synephrine and others) are found in nasal sprays. They are effective and may be less likely to cause the side effects seen with pseudoephedrine. However, using a nasal decongestant for more than three days can cause worse symptoms when you stop the medication. This is called the rebound effect. Antihistamines - These medications help to relieve the symptoms of nasal allergies that lead to inflammation and infections. However, some doctors advise against using antihistamines during a sinus infection because they can cause excessive drying and slow the drainage process. Xktj-htp-gdlnwki antihistamines include diphenhydramine (Benadryl and others), chlorpheniramine (Chlor-Trimeton and others) and loratadine (Claritin). Fexofenadine (Lena) and cetrizine (Zyrtec) are available by prescription. Nasal steroids - Anti-inflammatory sprays such as mometasone (Nasonex) and fluticasone (Flonase), both available by prescription, reduce swelling of nasal membranes. Like antihistamines, nasal steroids can be most useful for those who have nasal allergies. Nasal steroids tend to produce less drying than antihistamines. Unlike nasal decongestants, nasal steroids can be used for prolonged periods. Saline nasal sprays - These salt-water sprays are safe to use and can provide some relief by adding moisture to the nasal passages, thinning mucus secretions and helping to flush out any bacteria that may be present. Pain relievers - Acetaminophen (Tylenol), ibuprofen (Advil, Motrin and others) or naproxen (Aleve) can be taken sinus pain. Antibiotics - Your doctor may prescribe an antibiotic if he or she suspects that a bacterial infection is causing your sinusitis. If you start taking an antibiotic, complete the entire course so that the infection is completely killed off. Not all cases of sinusitis require antibiotic treatment: Talk with your doctor about whether an antibiotic is right for you. Keep in mind that antibiotics can cause side effects, such as allergic reactions, rash and diarrhea. In addition, overusing antibiotics eventually leads to the spread of bacteria that no longer can be killed by the most commonly prescribed antibiotics. When To Call A Professional Contact a doctor if you experience facial pain along with a headache and fever, cold symptoms that last longer than seven to 10 days, or persistent green discharge from the nose. If your symptoms don't improve within a week of beginning treatment, call your doctor. Call sooner if symptoms are getting worse. If you have repeated bouts of acute sinusitis, you may have allergies or another treatable cause of sinus congestion. Ask your doctor for advice. Coding Level of Care Code Est Pt Level 4 (55458) Diagnoses Acute bacterial sinusitis J01.90; B96.89 Post-nasal drip R09.82 Fungal rash of torso B36.9 Pharyngitis, unspecified etiology J02.9 Pharyngitis/tonsillitis etiology: unspecified etiology
[2024-06-01 10:49] VITALS: BP 110/74; PULSE 87; RESP 16; TEMP 36.7; O2SAT 95
== END 2024-06-01 11:09 | disposition home or self-care (01) ==
PROVIDERS: PCP Physician Assistant; Visit Provider Nurse Practitioner Family
DX: J01.90 Acute sinusitis, unspecified (principal); B96.89 Other specified bacterial agents as the cause of diseases classified elsewhere; R09.82 Postnasal drip; B36.9 Superficial mycosis, unspecified; J02.9 Acute pharyngitis, unspecified
CPT/HCPCS: 87880; 99214

== ENCOUNTER 2024-06-09 10:24 | Outpatient (AMB) | payer MEDICARE, SELFPAY ==
--- NOTE | 2024-06-09 10:28 | A.OFFPC_ITS ---
Vital Signs 06/09/24 10:30 BMI Reason not done Patient refused/unable BP 104/76 Blood Pressure Location Lt brachial Position Sitting Respiration 16 Pulse 89 Pulse Source Pulse Oximeter Temp 98.1 F Temp Source Oral Pulse Oximetry (%) 98 Oxygen Delivery Method Room Air Intake Visit Reasons: 1 week fu sinusitis 30 min Intake Note: One week follow up. Still having sore throat, chest pressure, lethargic. Allergies amoxicillin [AMOXICILLIN] Allergy (Severe, Verified 06/09/24 10:29) severe vomiting pumpkin Allergy (Intermediate, Verified 06/09/24 10:29) Difficulty Breathing adhesive tape Adverse Reaction (Intermediate, Verified 06/09/24 10:29) rash hydrocodone Adverse Reaction (Intermediate, Verified 06/09/24 10:29) dizziness, disorientation vicodin Allergy (Intermediate, Uncoded 06/09/24 10:29) Dizziness Medication List - Last Reconciled 06/09/24 by Mirela Cabrera, POWER SUPERINTENDENT- aspirin 81 mg PO DAILY cholecalciferol (vitamin D3) (Vitamin D3) 125 mcg PO DAILY cyanocobalamin (vitamin B-12) (Vitamin B-12) 2,500 mcg sublingual QAM flaxseed oil 3,000 mg PO DAILY furosemide (Lasix) 20 mg PO DAILY PRN 30 days magnesium 250 mg PO DAILY nystatin 1 appl topical TID paroxetine HCl 40 mg PO BEDTIME walker Folding Front wheeled walker Tobacco use date assessed: 11/26/23 Dental Screening Dental Screen Date: 11/26/23 HPI HPI Comments History of Present Illness Details Here today for a 1 week fu. She was tx w/ Zpak for suspected acute bacterial sinusitis. Flonase was also prescribed. tolerant and compliant w/ AB however took flonase x 1 and this made her feel dizzy like she was going to pass out so stopped taking. states she does not feel good at all, no better. cont to have a sore throat which she states has been present for 3 months along w/ the heaviness in her chest, located between her breasts. the pain comes and goes. when asked about gERD sx she states she has chronic pancreatitis and had similar sx in the past. she is active w/ dr soto, no f/u scheduled. after some talking does feel her throat is better since last exam. she is worried about lung and throat cancer and would like an xray to rule this out. Exam: Awake alert NAD Sclera and conjunctiva clear bilat Nares patent, turbinates WNL,no sinus tenderness with palpation Right max and frontal TM intact & clear right, intact and with trace fluid on L MMM, pharynx no erythema, no exudate,no ac adenopathy bilat RRR LS CTAB. no complaints of dizziness on exam today Plan: Her physical assessment is better today. I have ordered a CXR per her request. I do think her epigastric/sternal pain and sore throat is likely GI related. EKG done today and WNL. I have advised her to call her GI Dr Soto to see if she can be seen. She can also fu with her PCP. I sent a message directly to PCP work group to update and request appt/fu for patient. stop flonase as this cause s/e She is agreeable w/ this plan. Total time spent caring for the patient today was 50 minutes. This includes time spent before the visit reviewing the chart, time spent during the visit, and time spent after the visit on documentation PFSH Medical History Lumbar herniated disc Hypoglycemia GERD (gastroesophageal reflux disease) COVID-19 vaccine series completed Macular degeneration Fluid retention in legs Pancreatitis Renal calculi Osteoarthritis Basal cell carcinoma Hiatal hernia Scoliosis Anxiety Depression Hypertension Surgical History History of right hip replacement History of esophagogastroduodenoscopy (EGD) H/O colonoscopy History of nasal septoplasty History of total left knee replacement History of section History of cholecystectomy History of hysterectomy Family History Father Cancer Mother Rheumatoid arthritis Daughter Crohn's colitis Social History Housing: House Are you a primary reproductive healthcare assistant to a significant other at home: No Do you presently have visiting nurse or other home services: No Unable to assess alcohol history related to: Unknown Comment: advised to remove before surgery Patient Tobacco Use Status: Former Tobacco user Tobacco use type: Cigarette e-Cigarette/Vaping Use: Never Used Advance Directives Date on File: 06/11/14 service: No 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 Gaurang Curiel, Renetta Dailey, Felix Johnson and colleagues, with an educational markel from [employer]. Physical exam (Primary Care) Vital Signs: Last Vital Signs Temp 98.1 F 06/09/24 10:30 Pulse 89 06/09/24 10:30 Resp 16 06/09/24 10:30 BP 104/76 06/09/24 10:30 Pulse Ox 98 06/09/24 10:30 Oxygen Delivery Method Room Air 06/09/24 10:30 Tobacco/Smoking Status: Tobacco use Status Tobacco use date assessed 11/26/23 06/09/24 10:34 Patient Tobacco Use Status Former Tobacco user 06/09/24 10:34 Tobacco use type Cigarette 06/09/24 10:34 e-Cigarette/Vaping Use Never Used 06/09/24 10:34 Thrive Assessment: Date of Thrive Assessment Date Thrive assessed 11/26/23 06/09/24 10:34 Office Procedures EKG Details: NSR [id number], Complete Assessment and Plan Assessment & Plan (1) Chest pain: Code(s): R07.9 - Chest pain, unspecified Qualifiers: Chest pain type: unspecified Qualified Code(s): R07.9 - Chest pain, unspecified (2) Sore throat: Code(s): J02.9 - Acute pharyngitis, unspecified (3) Acute bacterial sinusitis: Code(s): J01.90 - Acute sinusitis, unspecified; B96.89 - Other specified bacterial agents as the cause of diseases classified elsewhere Orders: Orders XR chest 2V Today R07.9 - Chest pain, unspecified AMB EKG-In Office Today R07.9 - Chest pain, unspecified, Z13.6 - Encounter for screening for cardiovascular disorders Coding Level of Care Code Est Pt Level 5 (46306) Complex EM visit Add On G2211 Diagnoses Chest pain, unspecified type R07.9 Chest pain type: unspecified Sore throat J02.9 Acute bacterial sinusitis J01.90; B96.89 CPT Codes EKG - CPT: 41181-[id number], Complete ([id number])
[2024-06-09 10:30] VITALS: BP 104/76; PULSE 89; RESP 16; TEMP 36.7; O2SAT 98
== END 2024-06-09 11:17 | disposition home or self-care (01) ==
PROVIDERS: PCP Physician Assistant; Visit Provider Nurse Practitioner Family
DX: R07.9 Chest pain, unspecified (principal); J02.9 Acute pharyngitis, unspecified; J01.90 Acute sinusitis, unspecified; B96.89 Other specified bacterial agents as the cause of diseases classified elsewhere
CPT/HCPCS: 93000; 99215; G2211

== ENCOUNTER 2024-06-10 11:14 | Outpatient (REF) | payer MEDICARE, SELFPAY ==
--- NOTE | ~2024-06-10 | XR_ITS ---
EXAMINATION: XR CHEST CLINICAL INFORMATION: Chest pain COMPARISON: 12/03/2023 TECHNIQUE: 2 views of the chest were obtained. FINDINGS: Right lung is grossly clear. The cardiac silhouette is comparable. Tortuous arch and descending aorta is once again seen. The hilar regions are felt to be comparable. Lateral film shows some mild posterior left basilar opacity may represent a small area of atelectasis or infiltrate. Degenerative change in the thoracic spine is noted. No acute compression injury. XR/XR chest 2V IMPRESSION: The only finding here is some mild opacity in the posterior left costophrenic angle which may represent a small area of atelectasis or infiltrate. Attention to follow-up.
== END 2024-06-10 11:15 | disposition home or self-care (01) ==
LOC: HO.XRAY 11:14
PROVIDERS: PCP Physician Assistant; Visit Provider Nurse Practitioner Family
DX: R07.9 Chest pain, unspecified (principal)
CPT/HCPCS: 71046

== ENCOUNTER 2024-06-13 11:36 | Emergency (ER) | payer MEDICARE, SELFPAY ==
--- NOTE | ~2024-06-13 | CT_ITS ---
EXAMINATION: CT ANGIOGRAM OF THE CHEST WITH CONTRAST (CT PULMONARY ANGIOGRAM FOR PE) CT ABDOMEN AND PELVIS WITH IV CONTRAST CLINICAL INFORMATION: Pain. Evaluate for pulmonary embolism. Abdominal pain. COMPARISON: Abdomen MRI from 03/24/2019. Abdomen CT from 07/30/2018. TECHNIQUE: Chest - Prior to contrast administration, noncontrast localization images were obtained. Subsequently, multidetector volumetric imaging was performed from the thoracic inlet to below the diaphragms following the administration of 85 mL of Omnipaque 350 intravenous contrast. No contrast reaction reported. Abdomen and Pelvis - Multidetector CT imaging examination of the abdomen pelvis performed after the intravenous contrast administration. The axial images and multiplanar reformatted images are reviewed. Sagittal, coronal, and MIP oblique sagittal reformatted images were obtained on the CT workstation, uploaded to PACS, and reviewed. This CT examination was performed using dose optimization techniques as appropriate, variously including the following: *Automated exposure control *Adjustment of mA and/or kV according to patient size (this includes techniques or standardized protocols for targeted exams where dose is matched to indication/reason for exam; i.e. extremities or head) *Use of iterative reconstruction technique DLP: Total exam dose-length product 944 mGy-cm FINDINGS: CHEST - LUNGS AND PLEURA: Trachea and central airways are widely patent and normal in caliber. Lungs are well expanded. No interstitial disease. No consolidation, pleural effusion or pneumothorax. QUALITY OF STUDY/CONTRAST BOLUS: Satisfactory. PULMONARY ARTERIES: The pulmonary arteries are normal in size. No embolic filling defects within the main, lobar or segmental vessels. OTHER CARDIOVASCULAR: The heart size is normal. No pericardial effusion. Mild atherosclerotic calcification of the aortic arch. Aorta is normal in caliber. No aneurysm or dissection. MEDIASTINUM/LOWER NECK: No mediastinal mass. The esophagus has normal wall thickness. There is a very small sliding-type hiatal hernia. Thyroid gland is unremarkable. LYMPHATICS: No pathologic sized axillary, hilar or mediastinal lymph nodes. OSSEOUS STRUCTURES: No acute or suspicious osseous abnormality. There is chronically decreased joint space, subarticular sclerosis and osteophyte formation at the degenerated glenohumeral joints. Multilevel degenerative arthropathy of the thoracic spine. Findings include facet osteoarthritis, moderate disc degenerative change and mild grade 1 anterolisthesis at T2-T3. ABDOMEN/PELVIS - HEPATOBILIARY: Liver has normal size and contour. Status post cholecystectomy. The common bile duct measures up to 1.1 cm transverse diameter and is unchanged in caliber compared to 03/24/2019. PANCREAS: Mildly atrophied. No edema, pancreatic ductal dilatation or mass. SPLEEN: Normal. ADRENAL GLANDS: Normal. KIDNEYS AND URETERS: Kidneys are normal in size and enhance symmetrically. No nephrolithiasis or hydronephrosis. No suspicious renal lesion. The ureters are unremarkable. BLADDER: Normal. No calculi or wall thickening. BOWEL AND PERITONEUM: There appears to be a very small sliding-type hiatal hernia. No dilated bowel loops. No focal bowel wall thickening or mesenteric fat stranding. There are diverticula of the sigmoid colon without evidence of diverticulitis. No evidence of appendicitis. No abdominal free fluid or pneumoperitoneum. ABDOMINAL WALL: Minimal protrusion of fat into the umbilicus. VASCULATURE: There is mild atherosclerotic calcification of the abdominal aorta and iliac arteries without aneurysm. LYMPH NODES: No pathologic sized lymph nodes in the abdomen or pelvis. No inguinal lymphadenopathy. PELVIC VISCERA: The patient appears to be status post hysterectomy. No adnexal mass. No pelvic free fluid. MUSCULOSKELETAL: Multilevel disc degenerative change and facet arthropathy of the lumbar spine. Moderate-to severe osteoarthritis of the left hip. The visualized components of the right total hip arthroplasty are in normal position. Chronic degenerative subarticular sclerosis, subarticular cystic change and osteophytes at the pubic symphysis. CT/CT angio chest PE protocol IMPRESSION: * No evidence of pulmonary embolism. * No acute imaging abnormalities in the chest, abdomen or pelvis. No specific source of pain is identified. * The common duct is chronically dilated, status post cholecystectomy. * There are diverticula of the sigmoid colon without evidence of diverticulitis.
[2024-06-13 11:39] VITALS: BP 107/69; PULSE 73; RESP 18; TEMP 36.8; O2SAT 99; BMI 34.5
--- NOTE | 2024-06-13 11:45 | ECG_ITS ---
Test Reason : CHEST HEAVINESS Blood Pressure : / mmHG Vent. Rate : 068 BPM Atrial Rate : 068 BPM P-R Int : 150 ms QRS Dur : 086 ms QT Int : 404 ms P-R-T Axes : 055 003 022 degrees QTc Int : 429 ms Normal sinus rhythm Cannot rule out Anterior infarct , age undetermined Abnormal ECG When compared with ECG of 03-DEC-2023 15:45, No significant change was found Referred By: Generic ED Physician Electronically Signed By:BIPIN WOLF MD
[2024-06-13 12:07] LABS: IDNOW Serial# 08D9AD1C; Strep A Nucleic Acid Negative (Negative)
--- NOTE | 2024-06-13 12:10 | ED.URI ---
HPI - URI/Sore Throat General Chief Complaint: Upper Respiratory Symptoms Stated Complaint: pneumonia Time Seen by Provider: 06/13/24 11:54 Source: patient and family Mode of arrival: ambulatory Limitations: no limitations History of Present Illness ED Provider: Sandra Clements APRN HPI Narrative: This is a 68-year-old female who has a history of chronic pancreatitis, obstructive sleep apnea, depression, GERD, hypertension who presents to the ER with multiple complaints. Patient reports that she has had a chronic sore throat for more than 3 months. She has not been seen by her primary care or an clinical specialist for this. Three weeks ago she did go to urgent care with complaints of sore throat, cough and chest heaviness. She was diagnosed with sinusitis and prescribed azithromycin. She followed back up with urgent care this past week for continued symptoms of sore throat and chest heaviness. She was prescribed doxycycline after being diagnosed with a left upper lobe pneumonia on x-ray. She has been taking doxycycline 100 mg twice daily since Saturday. She reports continued symptoms of chest heaviness and sore throat. She tells me that she has no cough. She has constant chest heaviness which is not exertional and feels that she can not catch a deep breath. The chest heaviness is worsened with deep breathing. She denies any associated fever, leg swelling or leg pain. She has had some lower abdominal discomfort the last few days that is not associated with any diarrhea, constipation, urinary symptoms. She denies any recent travel or sick contact. She does have a history of a 15 your smoking history. She is not currently smoking. She denies current alcohol or drug use. She denies any difficulty swallowing, change in voice, weight loss, night sweats Related Data Home Medications ?Medication ?Instructions ?Recorded ?Confirmed cholecalciferol (vitamin D3) 125 125 mcg PO DAILY 09/27/21 06/09/24 mcg (5,000 unit) tablet (Vitamin D3) cyanocobalamin (vitamin B-12) 2,500 mcg sublingual QAM 09/28/21 06/09/24 2,500 mcg sublingual tablet (Vitamin B-12) aspirin 81 mg tablet,delayed 81 mg PO DAILY 09/25/23 06/09/24 release magnesium 250 mg tablet 250 mg PO DAILY 09/25/23 06/09/24 flaxseed oil 1,000 mg capsule 3,000 mg PO DAILY 06/01/24 06/09/24 Previous Rx's ?Medication ?Instructions ?Recorded walker #1 ea 09/01/21 paroxetine HCl 40 mg tablet 40 mg PO BEDTIME #90 tabs 01/16/24 furosemide 20 mg tablet (Lasix) 20 mg PO DAILY PRN edema 30 days 04/16/24 #30 tabs nystatin 100,000 unit/gram topical 1 appl topical TID #60 grams 06/01/24 powder doxycycline hyclate 100 mg capsule 100 mg PO BID 7 days #14 caps 06/10/24 Allergies Allergy/AdvReac Type Severity Reaction Status Date / Time amoxicillin [AMOXICILLIN] Allergy Severe severe Verified 06/13/24 11:42 vomiting pumpkin Allergy Intermediate Difficulty Verified 06/13/24 11:42 Breathing adhesive tape AdvReac Intermediate rash Verified 06/13/24 11:42 hydrocodone AdvReac Intermediate dizziness, Verified 06/13/24 11:42 disorientation vicodin Allergy Intermediate Dizziness Uncoded 06/13/24 11:42 Review of Systems Review of Systems: Yes all other systems are reviewed and are negative Constitutional: Constitutional: Reports no additional constitutional complaints, Denies body ache(s), Denies chills, Denies fever(s), Denies headache(s), Denies night sweats, Denies weakness and Denies weight loss Eyes: Eyes: Reports no additional eye complaints and Denies change in vision ENT: Reports system reviewed and no additional complaints, except as documented, Denies dizziness, Denies headache(s), Denies nasal congestion, Denies nasal discharge, Denies neck pain and Reports sore throat Cardiovascular: Cardiovascular: Reports no additional cardiovascular complaints, Reports chest pain, Denies leg edema and Denies dyspnea Respiratory: Respiratory: Reports no additional respiratory complaints, Denies cough and Denies dyspnea Gastrointestinal: Gastrointestinal: Reports no additional gastrointestinal complaints, Denies abdominal pain, Denies diarrhea, Denies nausea and Denies vomiting Genitourinary: Genitourinary: Reports no additional female genitourinary complaints and Denies urinary incontinence Musculoskeletal: Musculoskeletal: Reports no additional musculoskeletal complaints, Denies back pain, Denies arthralgias, Denies joint swelling, Denies neck pain, Denies numbness and Denies tingling Integumentary/Breasts: Skin/Breast: Reports system reviewed and no additional complaints, except as docu and Denies rash Neurologic: Reports system reviewed and no additional complaints, except as documented, Denies Abnormal speech present, Denies dizziness, Denies headache(s), Denies numbness, Denies tingling and Denies weakness PMFSH Past Medical History Attestation statement: The following information was validated with the patient. Source: old records reviewed and nursing notes reviewed Medical History Lumbar herniated disc Hypoglycemia GERD (gastroesophageal reflux disease) COVID-19 vaccine series completed Macular degeneration Fluid retention in legs Pancreatitis Renal calculi Osteoarthritis Basal cell carcinoma Hiatal hernia Scoliosis Anxiety Depression Hypertension Surgical History History of right hip replacement History of esophagogastroduodenoscopy (EGD) H/O colonoscopy History of nasal septoplasty History of total left knee replacement History of section History of cholecystectomy History of hysterectomy Family History Family History Father Cancer Mother Rheumatoid arthritis Daughter Crohn's colitis Social History Social History Housing: House Are you a primary post acute care registered nurse to a significant other at home: No Do you presently have visiting nurse or other home services: No Unable to assess alcohol history related to: Unknown Comment: advised to remove before surgery Patient Tobacco Use Status: Former Tobacco user Tobacco use type: Cigarette Smoked in Last 30 Days: No e-Cigarette/Vaping Use: Never Used Advance Directives: No Advance Directives Information Provided: Yes Advance Directives Date on File: 06/11/14 service: No 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 Hearing needs: No Vision needs: Yes Physical Exam Vital Signs: Vital Signs: Last Vital Signs Temp 97.4 F 06/13/24 15:39 Pulse 68 06/13/24 15:39 Resp 18 06/13/24 15:39 BP 112/60 06/13/24 15:39 Pulse Ox 98 06/13/24 15:39 O2 Del Method Room Air 06/13/24 15:39 BMI result Body Mass Index 34.5 Const: General: cooperative, healthy appearing, comfortable and no acute distress Orientation/consciousness: patient oriented x3 Limitations: no limitations HEENT: Head: Yes normal to inspection Ears: hearing grossly normal bilaterally General nose exam: Normal external nose present Face and sinus: Yes normal facial exam Mouth: Normal oral and palatal mucosa present Throat: Yes posterior oropharynx normal Eyes: General: appearance normal, both eyes and all related structures Pupils: Equal, round and reactive pupils present Neck: Neck: Yes normal visual inspection Chest: Chest palpation & inspection: normal inspection of the chest Resp: Effort & Inspection: normal respiratory effort Auscultation: clear to auscultation bilaterally Cardio: Rate: regular rate Rhythm: regular rhythm Peripheral pulses: Peripheral pulses 2+ throughout GI: Inspection: Yes normal to inspection Palpation (GI): Soft to palpation and nontender Auscultation: normal bowel sounds Back/Spine/Pelvis: Thoracic/Lumbar Spine: thoracic and lumbar spine normal to inspection Skin: General skin exam: no rashes or lesions noted Neuro: General: patient oriented x3, no focal motor deficits and normal sensation to monofilament Cranial nerves: Yes Equal, round and reactive pupils present Cognition (Neuro): normal cognition Speech: No Abnormal speech present Gait exam (Neuro): Normal gait present Motor exam (neuro): 5/5 motor strength present throughout Extrem: General: Yes normal to inspection, Yes no pedal edema and Yes no calf tenderness Course Course Course Narrative: Labs are unremarkable. EKG is nonischemic. Patient with symptoms for weeks and so I do not believe she needs a repeat troponin. Her CT of her chest and abdomen show no acute abnormality. I will recommend that she follow-up with her primary care doctor outpatient. As far as her sore throat that has been chronic I do recommend that she follow up outpatient with an ear nose and throat as she has a history of tobacco smoking he will need to be ruled out for malignancy Reviewed worrisome signs and symptoms of when to return to the emergency room. Comfortable plan for discharge home Medications Administered Discontinued Medications Generic Name Dose Route Start Last Admin Trade Name Freq PRN Reason Stop Dose Admin Iohexol 100 ml 06/13/24 13:38 06/13/24 13:38 Iohexol 350 Mg/Ml 100 Ml Infus..Btl IV 06/13/24 13:39 85 ml ONCE ONE Administration Medical Decision Making Medical Decision Making [facility] Narrative: This is a 68-year-old female who has a history of chronic pancreatitis, obstructive sleep apnea, depression, GERD, hypertension who presents to the ER with multiple complaints. Patient reports that she has had a chronic sore throat for more than 3 months. She has not been seen by her primary care or an clinical specialist for this. Three weeks ago she did go to urgent care with complaints of sore throat, cough and chest heaviness. She was diagnosed with sinusitis and prescribed azithromycin. She followed back up with urgent care this past week for continued symptoms of sore throat and chest heaviness. She was prescribed doxycycline after being diagnosed with a left upper lobe pneumonia on x-ray. She has been taking doxycycline 100 mg twice daily since Saturday. She reports continued symptoms of chest heaviness and sore throat. She tells me that she has no cough. She has constant chest heaviness which is not exertional and feels that she can not catch a deep breath. The chest heaviness is worsened with deep breathing. She denies any associated fever, leg swelling or leg pain. She has had some lower abdominal discomfort the last few days that is not associated with any diarrhea, constipation, urinary symptoms. She denies any recent travel or sick contact. She does have a history of a 15 your smoking history. She is not currently smoking. She denies current alcohol or drug use. Exam is benign. Vitals are stable. Will obtain labs, EKG, CTA/abdomen/pelvis, viral testing, strep test Differential Diagnosis Differential Diagnoses: The differential diagnosis associated with the presentation includes Malignancy, PE, pneumonia, pancreatitis, viral syndrome Low suspicion for ACS Admission/Observation Consideration of admission/observation: Escalation of care including admission/observation considered Lab Data MDM Lab Attestation statement: I reviewed the patient's lab results. 06/13/24 12:38 06/13/24 12:38 Labs: Lab Results 06/13/24 06/13/24 Range/Units 11:52 12:38 WBC 6.6 (4.8-10.8) X10*3/uL RBC 4.75 (4.20-5.50) X10*6/uL Hgb 12.3 (12.0-16.0) g/dl Hct 38.4 (37.0-47.0) % MCV 80.8 (80.0-98.0) fL MCH 25.9 L (27.0-33.0) pg MCHC 32.0 (31.0-35.0) g/dl RDW 15.9 (11.0-16.0) % Plt Count 275 (160-400) X10*3/uL MPV 8.9 L (9.4-12.3) fL Immature Gran % (Auto) 0.3 (0.0-0.4) % Neut % (Auto) 61.9 (45-73) % Lymph % (Auto) 27.7 (20-40) % [place] % (Auto) 7.6 (2-11) % Eos % (Auto) 2.0 (0-4) % Baso % (Auto) 0.5 (0-2) % Lymph # (Auto) 1.8 (1.2-4.9) X10*3/uL [place] # (Auto) 0.5 (0.1-1.2) X10*3/uL Eos # (Auto) 0.1 (0.0-0.4) X10*3/uL Baso # (Auto) 0.0 (0.0-0.2) X10*3/uL Abs Immat Gran (auto) 0.02 (0.00-0.03) X10*3/uL Absolute Neuts (auto) 4.1 (2.0-8.3) x10*3/uL Absolute Nucleated RBC 0.000 (0.0-0.012) X10*3/uL Nucleated RBC % (auto) 0.0 (0.0-0.2) /100WBC PT 10.8 L (11.1-13.3) SEC INR 0.9 (0.9-1.1) Sodium 142 (135-145) mmol/L Potassium 4.6 D (3.3-5.1) mmol/L Chloride 107 (96-108) mmol/L Carbon Dioxide 24 (22-29) mmol/L Anion Gap 16 (12-20) BUN 15 (9-16) mg/dL Creatinine 0.80 (0.5-1.4) mg/dL Estim Creat Clear Calc 76.8 Estimated GFR > 60 Random Glucose 84 (60-115) mg/dL Calcium 10.2 (8.4-10.2) mg/dL Total Bilirubin 0.4 (0.0-1.0) mg/dL Direct Bilirubin 0.1 (0.0-0.5) mg/dL AST 26 (5-31) U/L ALT 28 (0-31) U/L Alkaline Phosphatase 131 H (39-117) U/L Troponin I High Sens < 2.7 (<3.5-17.0) ng/L Total Protein 7.2 (6.5-8.0) g/dL Albumin 4.3 (3.5-5.0) g/dL Lipase 35 (8-78) U/L Urine Color Dark Yellow Urine Appearance Clear Urine pH 5.5 (5.0-9.0) Ur Specific [place] 1.020 (1.005-1.025) Urine Protein Negative (Neg-Trace) mg/dL Urine Glucose (UA) Negative (Negative) mg/dL Urine Ketones Trace (Negative) mg/dL Urine Blood Negative (Negative) Urine Nitrite Negative (Negative) Ur Leukocyte Esterase Negative (Negative) Influenza Type A (PCR) NEGATIVE (Negative) Influenza Type B (PCR) NEGATIVE (Negative) RSV RNA Qual (PCR) NEGATIVE (Negative) SARS-CoV-2 RNA (RT-PCR) NEGATIVE (Negative) S. pyogenes GrpA MYCHAL Negative (Negative) Independent Interpretation I performed an independent interpretation of an: EKG and CT Scan Interpretation: I independently viewed the EKG which shows normal sinus rhythm with a rate of 68, normal LA, normal QRS normal QT Radiology Impression Discussion of test interpretation with radiology: I have reviewed the radiologist's reading. Radiologist Impression: [place] [id number] CT Scan Report Signed Patient: Maria Antonia Miranda MR#: [id number] : 1955 Acct:[id number] Age/Sex: 68 / F ADM Date: 06/13/24 Loc: .ED Attending Dr: Ordering Physician: Sandra Quinn NP Date of Service: 06/13/24 Procedure(s): CT angio chest PE protocol Accession Number(s): [id number] cc: Chiki Wei PA-C; Sadnra Quinn NP~ EXAMINATION: CT ANGIOGRAM OF THE CHEST WITH CONTRAST (CT PULMONARY ANGIOGRAM FOR PE) CT ABDOMEN AND PELVIS WITH IV CONTRAST CLINICAL INFORMATION: Pain. Evaluate for pulmonary embolism. Abdominal pain. COMPARISON: Abdomen MRI from 03/24/2019. Abdomen CT from 07/30/2018. TECHNIQUE: Chest - Prior to contrast administration, noncontrast localization images were obtained. Subsequently, multidetector volumetric imaging was performed from the thoracic inlet to below the diaphragms following the administration of 85 mL of Omnipaque 350 intravenous contrast. No contrast reaction reported. Abdomen and Pelvis - Multidetector CT imaging examination of the abdomen pelvis performed after the intravenous contrast administration. The axial images and multiplanar reformatted images are reviewed. Sagittal, coronal, and MIP oblique sagittal reformatted images were obtained on the CT workstation, uploaded to PACS, and reviewed. This CT examination was performed using dose optimization techniques as appropriate, variously including the following: *Automated exposure control *Adjustment of mA and/or kV according to patient size (this includes techniques or standardized protocols for targeted exams where dose is matched to indication/reason for exam; i.e. extremities or head) *Use of iterative reconstruction technique DLP: Total exam dose-length product 944 mGy-cm FINDINGS: CHEST - LUNGS AND PLEURA: Trachea and central airways are widely patent and normal in caliber. Lungs are well expanded. No interstitial disease. No consolidation, pleural effusion or pneumothorax. QUALITY OF STUDY/CONTRAST BOLUS: Satisfactory. PULMONARY ARTERIES: The pulmonary arteries are normal in size. No embolic filling defects within the main, lobar or segmental vessels. OTHER CARDIOVASCULAR: The heart size is normal. No pericardial effusion. Mild atherosclerotic calcification of the aortic arch. Aorta is normal in caliber. No aneurysm or dissection. MEDIASTINUM/LOWER NECK: No mediastinal mass. The esophagus has normal wall thickness. There is a very small sliding-type hiatal hernia. Thyroid gland is unremarkable. LYMPHATICS: No pathologic sized axillary, hilar or mediastinal lymph nodes. OSSEOUS STRUCTURES: No acute or suspicious osseous abnormality. There is chronically decreased joint space, subarticular sclerosis and osteophyte formation at the degenerated glenohumeral joints. Multilevel degenerative arthropathy of the thoracic spine. Findings include facet osteoarthritis, moderate disc degenerative change and mild grade 1 anterolisthesis at T2-T3. ABDOMEN/PELVIS - HEPATOBILIARY: Liver has normal size and contour. Status post cholecystectomy. The common bile duct measures up to 1.1 cm transverse diameter and is unchanged in caliber compared to 03/24/2019. PANCREAS: Mildly atrophied. No edema, pancreatic ductal dilatation or mass. SPLEEN: Normal. ADRENAL GLANDS: Normal. KIDNEYS AND URETERS: Kidneys are normal in size and enhance symmetrically. No nephrolithiasis or hydronephrosis. No suspicious renal lesion. The ureters are unremarkable. BLADDER: Normal. No calculi or wall thickening. BOWEL AND PERITONEUM: There appears to be a very small sliding-type hiatal hernia. No dilated bowel loops. No focal bowel wall thickening or mesenteric fat stranding. There are diverticula of the sigmoid colon without evidence of diverticulitis. No evidence of appendicitis. No abdominal free fluid or pneumoperitoneum. ABDOMINAL WALL: Minimal protrusion of fat into the umbilicus. VASCULATURE: There is mild atherosclerotic calcification of the abdominal aorta and iliac arteries without aneurysm. LYMPH NODES: No pathologic sized lymph nodes in the abdomen or pelvis. No inguinal lymphadenopathy. PELVIC VISCERA: The patient appears to be status post hysterectomy. No adnexal mass. No pelvic free fluid. MUSCULOSKELETAL: Multilevel disc degenerative change and facet arthropathy of the lumbar spine. Moderate-to severe osteoarthritis of the left hip. The visualized components of the right total hip arthroplasty are in normal position. Chronic degenerative subarticular sclerosis, subarticular cystic change and osteophytes at the pubic symphysis. CT/CT angio chest PE protocol IMPRESSION: * No evidence of pulmonary embolism. * No acute imaging abnormalities in the chest, abdomen or pelvis. No specific source of pain is identified. * The common duct is chronically dilated, status post cholecystectomy. * There are diverticula of the sigmoid colon without evidence of diverticulitis. Independent Historian Clinical information obtained from an independent historian. History obtained from or confirmed by: Spouse External Record Review External record reviewed: Outpatient record and Outside ED record Patient had ER visit in November of 2023 for chest pain. She followed up with Cardiology outpatient and had echocardiogram showed preserved EF of 60-65% otherwise normal, exercise stress test December 2023 that was nonischemic. Discharge Plan Discharge Clinical Impression: Chest discomfort, Chronic sore throat Patient Disposition: Home, Self-Care Instructions: Chest Pain (ED) Additional Instructions: The lab work we have done today is reassuring. Your urine shows no signs of infection. Your EKG is normal. Your CT scan of your chest and abdomen do not show any acute abnormality. Due to the chronicity of your sore throat I do recommend that you follow-up outpatient with the ears nose and throat doctor as you may need additional testing. Please also follow-up outpatient with your primary care doctor You may return for any worsening symptoms Prescriptions: No Action (DME) mirian Misc See Rx Instructions .MEDSUPPLY Qty: 1 0RF Rx Instructions: Folding Front wheeled walker paroxetine HCl 40 mg tablet 40 mg PO BEDTIME Qty: 90 1RF furosemide [Lasix] 20 mg tablet 20 mg PO DAILY PRN (Reason: edema) 30 Days Qty: 30 2RF doxycycline hyclate 100 mg capsule 100 mg PO BID 7 Days Qty: 14 0RF cholecalciferol (vitamin D3) [Vitamin D3] 125 mcg (5,000 unit) Tablet 125 mcg PO DAILY cyanocobalamin (vitamin B-12) [Vitamin B-12] 2,500 mcg Tablet, Sublingual 2,500 mcg SUBLINGUAL QAM flaxseed oil 1,000 mg capsule 3,000 mg PO DAILY aspirin 81 mg tablet,delayed release (DR/EC) 81 mg PO DAILY magnesium 250 mg tablet 250 mg PO DAILY nystatin 100,000 unit/gram powder 1 appl topical TID Qty: 60 5RF Referrals: Chiki Wei PA-C [Primary Care Provider] - 5 days Interventions: ED Discharge Assessment Last Done: 06/13/24 15:39 Discharge Date/Time: 06/13/24 15:40 Print Language: [place]
[2024-06-13 12:40] LABS: Influenza A PCR NEGATIVE (Negative); Influenza B PCR NEGATIVE (Negative); Resp Syncy Virus RNA Qual PCR NEGATIVE (Negative); SARS COV2 PCR INHOUSE NEGATIVE (Negative)
[2024-06-13 12:44] LABS: MANUAL DIFF FLAG NO
[2024-06-13 12:55] LABS: Basophils Percent Auto 0.5 % (0-2); Eosinophils Absolute Auto 0.1 X10*3/uL (0.0-0.4); Hematocrit 38.4 % (37.0-47.0); Hemoglobin 12.3 g/dl (12.0-16.0); Imm Gran Abs Auto 0.02 X10*3/uL (0.00-0.03); Imm Gran Pct Auto 0.3 % (0.0-0.4); Lymphocytes Absolute Auto 1.8 X10*3/uL (1.2-4.9); Lymphocytes Percent Auto 27.7 % (20-40); Mean Corpuscular Hemoglobin 25.9 pg (27.0-33.0); Mean Corpuscular Volume 80.8 fL (80.0-98.0); Mean Platelet Volume 8.9 fL (9.4-12.3); Monocytes Absolute Auto 0.5 X10*3/uL (0.1-1.2); Monocytes Percent Auto 7.6 % (2-11); Neutrophils Absolute Auto 4.1 x10*3/uL (2.0-8.3); Neutrophils Percent Auto 61.9 % (45-73); Platelet Count 275 X10*3/uL (160-400); Red Blood Count 4.75 X10*6/uL (4.20-5.50); Red Cell Distribution Width 15.9 % (11.0-16.0); White Blood Count 6.6 X10*3/uL (4.8-10.8)
[2024-06-13 12:58] LABS: Appearance Urine Clear; Color Urine Dark Yellow; Glucose Urine UA Negative (Negative); Leukocyte Esterase Urine Negative (Negative); Nitrite Urine Negative (Negative); PH 5.5 (5.0-9.0); Urine Blood Negative (Negative); Urine Ketones Trace mg/dL (Negative); Urine Protein Negative (Neg-Trace)
[2024-06-13 12:59] LABS: INTERNATIONAL NORM RATIO 0.9 (0.9-1.1); Prothrombin Time 10.8 SEC (11.1-13.3)
[2024-06-13 13:10] LABS: Alanine Aminotransferase 28 U/L (0-31); Albumin Level 4.3 g/dL (3.5-5.0); Alkaline Phosphatase 131 U/L (39-117); Anion Gap 16 (12-20); Aspartate Amino Transferase 26 U/L (5-31); Bilirubin Direct 0.1 mg/dL (0.0-0.5); Bilirubin Total 0.4 mg/dL (0.0-1.0); Blood Urea Nitrogen 15 mg/dL (9-16); Calcium 10.2 mg/dL (8.4-10.2); Carbon Dioxide 24 mmol/L (22-29); Chloride 107 mmol/L (96-108); Creatinine Clr Calc Pharmacy 76.8; Estimated Glomerular Filt Rate > 60; Glucose Random 84 mg/dL (60-115); Lipase 35 U/L (8-78); Potassium 4.6 mmol/L (3.3-5.1); Sodium 142 mmol/L (135-145); Total Protein 7.2 g/dL (6.5-8.0)
[2024-06-13 13:18] LABS: Troponin-I High Sensitivity < 2.7 ng/L (<3.5-17.0)
[2024-06-13] MEDS: iohexoL 350 MG/ML 100 ML INFUS..BTL IV (13:38)
[2024-06-13 14:00] VITALS: BP 118/65; PULSE 66; RESP 18; TEMP 36.4; O2SAT 96
[2024-06-13 15:39] VITALS: BP 112/60; PULSE 68; RESP 18; TEMP 36.3; O2SAT 98
== END 2024-06-13 15:40 | disposition home or self-care (01) ==
PROVIDERS: Nurse Practitioner Family; Emergency Provider Emergency Medicine; PCP Physician Assistant
DX: R07.9 Chest pain, unspecified (principal); J31.2 Chronic pharyngitis; R10.30 Lower abdominal pain, unspecified; R07.89 Other chest pain; I10 Essential (primary) hypertension; E78.5 Hyperlipidemia, unspecified; Z03.818 Encounter for observation for suspected exposure to other biological agents ruled out; R05.9 Cough, unspecified; Z79.899 Other long term (current) drug therapy; Z79.82 Long term (current) use of aspirin
CPT/HCPCS: 0241U; 36415; 71275; 74177; 80048; 80076; 81003; 83690; 84484; 85025; 85610; 87651; 93005; 99284; Q9967

== ENCOUNTER → 2024-06-13 11:45 | Outpatient (BNV) | payer MEDICARE, SELFPAY | PROVIDERS: Emergency Provider Emergency Medicine; PCP Physician Assistant; Visit Provider Internal Medicine Cardiovascular Disease | DX: R94.31 Abnormal electrocardiogram [ECG] [EKG] (principal) | CPT/HCPCS: 93010 ==

== ENCOUNTER 2024-06-17 09:23 | Outpatient (AMB) | payer MEDICARE, SELFPAY ==
--- NOTE | 2024-06-17 09:27 | MHC.PC.OV ---
Vital Signs 06/17/24 09:39 Height 5 ft 6 in Weight 208 lb 8 oz BMI 33.6 BP 120/62 Blood Pressure Location Lt brachial Position Sitting Pulse 91 Pulse Source Pulse Oximeter Pulse Oximetry (%) 99 Oxygen Delivery Method Room Air Intake Visit Reasons: endoscopy request Glass Or Mirror Inspector Required: No Accompanied by: Self / Same As Patient Allergies amoxicillin [AMOXICILLIN] Allergy (Severe, Verified 06/17/24 09:42) severe vomiting pumpkin Allergy (Intermediate, Verified 06/17/24 09:42) Difficulty Breathing adhesive tape Adverse Reaction (Intermediate, Verified 06/17/24 09:42) rash hydrocodone Adverse Reaction (Intermediate, Verified 06/17/24 09:42) dizziness, disorientation vicodin Allergy (Intermediate, Uncoded 06/17/24 09:42) Dizziness Medication List - Last Reconciled 06/17/24 by Chiki Wei PA-C aspirin 81 mg PO DAILY cholecalciferol (vitamin D3) (Vitamin D3) 125 mcg PO DAILY cyanocobalamin (vitamin B-12) (Vitamin B-12) 2,500 mcg sublingual QAM doxycycline hyclate 100 mg PO BID 7 days flaxseed oil 3,000 mg PO DAILY furosemide (Lasix) 20 mg PO DAILY PRN 30 days magnesium 250 mg PO DAILY nystatin 1 appl topical TID paroxetine HCl 40 mg PO BEDTIME walker Folding Front wheeled walker Tobacco use date assessed: 11/26/23 Fall risk assessment: No Falls in past year Last assessed Fall Risk: 06/17/24 Dental Screening Dental Screen Date: 11/26/23 HPI endoscopy request HPI Details Patient is a 69-year-old female here today for an ER follow-up visit. Recently seen at urgent care and the ER for throat pain, chest congestion and cough. She reports her throat pain has been evident for the last 3 months though the chest congestion and cough was more recent. She underwent lab testing and CT of chest without any acute abnormalities. She did get a chest x-ray in this time and did shows some evidence of atelectasis? Pulmonary infiltrate. She was placed on antibiotics doxycycline and azithromycin though have not been particularly helpful. She reports she continues to have abdominal bloating and her throat pain is associated with some epigastric pain as well. She does report some mild dysphagia as well. She is interested in further evaluation thus will likely benefit from an endoscopy to evaluate for her erosive esophagitis. PLAN: Will set patient up with PPI therapy [facility] Medical History Lumbar herniated disc Hypoglycemia GERD (gastroesophageal reflux disease) COVID-19 vaccine series completed Macular degeneration Fluid retention in legs Pancreatitis Renal calculi Osteoarthritis Basal cell carcinoma Hiatal hernia Scoliosis Anxiety Depression Hypertension Surgical History History of right hip replacement History of esophagogastroduodenoscopy (EGD) H/O colonoscopy History of nasal septoplasty History of total left knee replacement History of section History of cholecystectomy History of hysterectomy Family History Father Cancer Mother Rheumatoid arthritis Daughter Crohn's colitis Social History Housing: House Are you a primary care transitions nurse to a significant other at home: No Do you presently have visiting nurse or other home services: No Unable to assess alcohol history related to: Unknown Comment: advised to remove before surgery Patient Tobacco Use Status: Former Tobacco user Tobacco use type: Cigarette e-Cigarette/Vaping Use: Never Used Advance Directives Date on File: 06/11/14 service: No 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 Gaurang Curiel, Renetta Dailey, Felix Johnson and colleagues, with an educational markel from [employer]. Review of Systems Const Denies headache(s) Eyes Denies loss of vision ENT Denies vertigo, Denies dizziness, Denies headache(s) and Reports sore throat Card Denies chest pain, Denies leg edema and Denies lightheadedness Resp Denies cough, Denies hemoptysis and Denies wheezing GI Reports abdominal pain, Denies melena, Reports bloating, Denies constipation, Reports dyspepsia, Denies diarrhea and Denies vomiting Denies urinary frequency, Denies dysuria and Denies urinary urgency Musc Denies arthralgias, Denies joint swelling, Denies numbness and Denies tingling Neuro Denies Abnormal speech present, Denies behavioral changes, Denies vertigo, Denies dizziness, Denies headache(s), Denies loss of vision, Denies memory loss, Denies numbness and Denies tingling Psych Denies anxiety, Denies behavioral changes, Denies depression, Denies memory loss and Denies panic attacks Roshan/Lymph Denies easy bleeding and Denies easy bruising Aller/Immun Denies wheezing Physical exam (Primary Care) Vital Signs: Last Vital Signs Pulse 91 06/17/24 09:39 BP 120/62 06/17/24 09:39 Pulse Ox 99 06/17/24 09:39 Oxygen Delivery Method Room Air 06/17/24 09:39 BMI result Body Mass Index 33.6 Tobacco/Smoking Status: Tobacco use Status Tobacco use date assessed 11/26/23 06/17/24 09:28 Patient Tobacco Use Status Former Tobacco user 06/17/24 09:28 Tobacco use type Cigarette 06/17/24 09:28 e-Cigarette/Vaping Use Never Used 06/17/24 09:28 Thrive Assessment: Date of Thrive Assessment Date Thrive assessed 11/26/23 06/17/24 09:28 Const General: healthy appearing, no acute distress, alert and awake Nutritional Appearance: well nourished Orientation/consciousness: oriented to person, oriented to place and oriented to time HENMT Ears: TM's normal bilaterally General nose exam: Normal nasal mucous membranes and turbinates present Eyes Conjunctivae: conjunctivae normal Sclerae: sclerae normal Pupils: Equal, round and reactive pupils present Neck Neck: Yes no lymphadenopathy and Yes no JVD Thyroid: Thyroid normal Carotids: no bruits Resp Effort & Inspection: normal respiratory effort and not tachypneic Auscultation: no crackles, no rales, no rhonchi and no wheezes Cardio Rate: regular rate Rhythm: regular rhythm Heart sounds: no murmurs and normal S1 and S2 GI Palpation (GI): Soft to palpation, nontender, no hepatomegaly and no splenomegaly Auscultation: normal bowel sounds Skin General skin exam: no rashes or lesions noted and dry skin Neuro General: oriented to person, oriented to place and oriented to time Cranial nerves: Yes Equal, round and reactive pupils present Speech: No Abnormal speech present Gait exam (Neuro): Normal gait present Motor exam (neuro): no tremor noted Extrem Right upper extremity: full ROM Left upper extremity: full ROM Right lower extremity: full ROM; no edema Left lower extremity: full ROM; no edema Psych Mental Status: mental status grossly normal Speech and movement: Normal speech and movement present Affect: normal affect Attitude: cooperative Thought process: Normal thought process present Assessment and Plan Assessment & Plan (1) GERD (gastroesophageal reflux disease): Code(s): K21.9 - Gastro-esophageal reflux disease without esophagitis Qualifiers: Esophagitis bleeding: without hemorrhage Esophagitis presence: with esophagitis Qualified Code(s): K21.00 - Gastro-esophageal reflux disease with esophagitis, without bleeding Plan: Patient reporting some epigastric pain and upper throat pain has been diagnosed with pharyngitis and started on antibiotics though has not been significantly helpful. Signs symptoms concerning for an erosive esophagitis thus will refer to Gastroenterology for possible endoscopy. Will start on (2) Dysphagia: Code(s): R13.10 - Dysphagia, unspecified Qualifiers: Dysphagia type: pharyngeal phase Qualified Code(s): R13.13 - Dysphagia, pharyngeal phase Plan: She does report some odynophagia and some oral dysphagia. Will send for barium swallow to evaluate for any esophageal strictures. Orders: Orders H pylori Ag Stool Today K21.00 - Gastro-esophageal reflux disease with esophagitis, without bleeding Comprehensive [place]. Panel Fast Today E78.5 - Hyperlipidemia, unspecified Lipid Panel Today E78.5 - Hyperlipidemia, unspecified Complete Blood Count no Diff Today E78.5 - Hyperlipidemia, unspecified [place] barium swallow Today K21.00 - Gastro-esophageal reflux disease with esophagitis, without bleeding, R13.10 - Dysphagia, unspecified Referrals Gastroenterology Referral K21.00 - Gastro-esophageal reflux disease with esophagitis, without bleeding Medications: New pantoprazole 20 mg PO DAILY 30 tabs 1RF 30 days K21.00 - Gastro-esophageal reflux disease with esophagitis, without bleeding Refilled paroxetine HCl 40 mg PO BEDTIME 90 tabs 1RF F41.1 - Generalized anxiety disorder Discontinued doxycycline hyclate Discontinued Reason: Change Referral Type 100 mg PO BID 7 days 14 caps 0RF Coding Level of Care Code Est Pt Level 4 (65422) Diagnoses Gastroesophageal reflux disease with esophagitis without hemorrhage K21.00 Esophagitis bleeding: without hemorrhage Esophagitis presence: with esophagitis Pharyngeal dysphagia R13.13 Dysphagia type: pharyngeal phase
[2024-06-17 09:39] VITALS: BP 120/62; PULSE 91; O2SAT 99; BMI 33.6
== END 2024-06-17 14:05 | disposition home or self-care (01) ==
PROVIDERS: PCP Physician Assistant; Visit Provider Physician Assistant
DX: K21.00 Gastro-esophageal reflux disease with esophagitis, without bleeding (principal); R13.13 Dysphagia, pharyngeal phase
CPT/HCPCS: 99214

== ENCOUNTER 2024-07-03 10:18 | Outpatient (REF) | payer MEDICARE, SELFPAY ==
--- NOTE | ~2024-07-03 | MM_ITS ---
EXAMINATION: MM SCREENING DIGITAL BREAST TOMOSYNTHESIS, BILATERAL CLINICAL INFORMATION: Screening. Asymptomatic. COMPARISON: Mammography: This study is compared with prior exams dating back to 2019. TECHNIQUE: Digital breast tomosynthesis is performed in both the craniocaudal and mediolateral oblique views along with computer-aided detection (CAD). Direct 2-D images of each breast in the standard screening projections are also obtained. FINDINGS: There are scattered areas of fibroglandular density (ACR BI-RADS breast composition Category b). There are no significant masses, abnormal calcifications, or other abnormalities. MM/MM tomosynthesis screening BI IMPRESSION: No mammographic evidence of malignancy. ASSESSMENT: BI-RADS BI-RADS 1 - Negative RECOMMENDATION: Routine annual mammography screening. 1 year F/U This examination should not preclude the clinical evaluation of a suspicious palpable abnormality. This patient's information was entered into a reminder system with a target due date for their next mammogram. Electronically signed by: Catina Nuñez MD 07/30/2024 12:28 PM EDT
== END 2024-07-03 10:19 | disposition home or self-care (01) ==
LOC: HO.MAMMO 10:18
PROVIDERS: PCP Physician Assistant; Visit Provider Physician Assistant
DX: Z12.31 Encounter for screening mammogram for malignant neoplasm of breast (principal)
CPT/HCPCS: 77063; 77067

== ENCOUNTER → 2024-07-03 10:30 | Outpatient (BNV) | payer MEDICARE, SELFPAY | PROVIDERS: PCP Physician Assistant; Visit Provider Radiology Diagnostic Radiology | DX: Z12.31 Encounter for screening mammogram for malignant neoplasm of breast (principal) | CPT/HCPCS: 77063; 77067 ==

== ENCOUNTER 2024-07-23 09:37 | Outpatient (REF) | payer MEDICARE, SELFPAY ==
--- NOTE | ~2024-07-23 | XR_ITS ---
EXAMINATION: XR CHEST CLINICAL INFORMATION: Nonspecific abnormal finding of lung field one month follow-up 06/10/2024 mild opacity in the posterior left costophrenic angle which may represent a small area of atelectasis or infiltrate. Attention to follow-up. COMPARISON: 06/10/2024, 12/03/2023 TECHNIQUE: 2 views of the chest were obtained. FINDINGS: The lungs are well-inflated. There is no gross pneumothorax. Heart size is normal. Degenerative changes in the thoracic spine. No pleural effusion. No focal consolidation to suggest pneumonia. XR/XR chest 2V IMPRESSION: 1. No evidence of pneumonia. 2. Previously described opacity in the posterior left costophrenic angle is not appreciated on current exam. Electronically signed by: Evelyn Brunson MD 08/12/2024 09:57 AM EDT
[2024-07-23 10:34] LABS: Hematocrit 38.4 % (37.0-47.0); Hemoglobin 12.3 g/dl (12.0-16.0); Mean Corpuscular Hemoglobin 25.3 pg (27.0-33.0); Mean Corpuscular Volume 78.9 fL (80.0-98.0); Mean Platelet Volume 9.2 fL (9.4-12.3); Platelet Count 237 X10*3/uL (160-400); Red Blood Count 4.87 X10*6/uL (4.20-5.50); Red Cell Distribution Width 15.6 % (11.0-16.0); White Blood Count 5.3 X10*3/uL (4.8-10.8)
[2024-07-23 10:36] LABS: Appearance Urine Clear; Color Urine Dark Yellow; Glucose Urine UA Negative (Negative); Leukocyte Esterase Urine Trace (Negative); Nitrite Urine Negative (Negative); PH 7.5 (5.0-9.0); Specific Gravity - Urine 1.025 (1.005-1.025); UMIC TRIGGER UACC YES; Urine Blood Negative (Negative); Urine Ketones Trace mg/dL (Negative); Urine Protein Trace mg/dL (Neg-Trace)
[2024-07-23 11:15] LABS: Alanine Aminotransferase 29 U/L (0-31); Albumin Level 4.1 g/dL (3.5-5.0); Alkaline Phosphatase 122 U/L (39-117); Anion Gap 11 (12-20); Aspartate Amino Transferase 25 U/L (5-31); Bilirubin Total 0.6 mg/dL (0.0-1.0); Blood Urea Nitrogen 11 mg/dL (9-16); Calcium 9.9 mg/dL (8.4-10.2); Carbon Dioxide 25 mmol/L (22-29); Chloride 109 mmol/L (96-108); Cholesterol 208 mg/dL (<200); Estimated Glomerular Filt Rate > 60; Glucose Fasting 91 mg/dL (60-99); HDL Cholesterol 48 mg/dL (>40); LDL Cholesterol Calculated 121 mg/dL (<100); Potassium 3.8 mmol/L (3.3-5.1); Sodium 141 mmol/L (135-145); Total Protein 6.9 g/dL (6.5-8.0); Triglycerides 198 mg/dL (<150)
[2024-07-23 11:44] LABS: Bacteria Urine None Seen (None Seen); Hyaline Casts Urine 0-2 /LPF (0-2); RBC Urine 0-2 /HPF (0-2); Squamous Epithelial Cell Urine 0-2 /HPF (0-2); WBC Urine 0-5 /HPF (0-5)
== END 2024-07-23 09:38 | disposition home or self-care (01) ==
LOC: HO.LAB 09:37
PROVIDERS: Absent Provider Nurse Practitioner Family; PCP Physician Assistant; Visit Provider Physician Assistant
DX: E78.5 Hyperlipidemia, unspecified (principal); R91.8 Other nonspecific abnormal finding of lung field; R35.0 Frequency of micturition
CPT/HCPCS: 36415; 71046; 80053; 80061; 81001; 85027

== ENCOUNTER 2024-07-30 13:59 | Outpatient (AMB) | payer MEDICARE, SELFPAY ==
--- NOTE | 2024-07-30 14:30 | AM.OFFVISMDC ---
Intake Vital Signs 07/30/24 14:34 Height 5 ft 6 in Weight 208 lb 2 oz BMI 33.6 BP 120/72 Blood Pressure Location Lt brachial Position Sitting Pulse 98 Pulse Source Pulse Oximeter Pulse Oximetry (%) 97 Oxygen Delivery Method Room Air Intake Visit Reasons: Annual Exam Intake Note: Patient is here for an Annual Wellness Visit. Medical Front Desk Coordinator Required: No Accompanied by: Self / Same As Patient Allergies amoxicillin [AMOXICILLIN] Allergy (Severe, Verified 07/30/24 14:41) severe vomiting pumpkin Allergy (Intermediate, Verified 07/30/24 14:41) Difficulty Breathing adhesive tape Adverse Reaction (Intermediate, Verified 07/30/24 14:41) rash hydrocodone Adverse Reaction (Intermediate, Verified 07/30/24 14:41) dizziness, disorientation vicodin Allergy (Intermediate, Uncoded 07/30/24 14:41) Dizziness Medication List - Last Reconciled 07/30/24 by Chiki Wei PA-C aspirin 81 mg PO DAILY cholecalciferol (vitamin D3) (Vitamin D3) 125 mcg PO DAILY cyanocobalamin (vitamin B-12) (Vitamin B-12) 2,500 mcg sublingual QAM flaxseed oil 3,000 mg PO DAILY furosemide (Lasix) 20 mg PO DAILY PRN 30 days magnesium 250 mg PO DAILY nitrofurantoin monohyd/m-cryst 100 mg (Macrobid) 100 mg PO Q12H 5 days nystatin 1 appl topical TID pantoprazole 20 mg PO DAILY 30 days paroxetine HCl 40 mg PO BEDTIME walker Folding Front wheeled walker HPI Annual Exam HPI Details Patient is a 69-year-old female here today for an annual wellness visit. Patient has a past medical history significant for generalized anxiety disorder, chronic abdominal bloating and pain, history of pancreatitis, GERD Today we discussed patient's [place] of care and end of life planning. We also reviewed patient's comprehensive care plan which was scanned into chart --Concern> reports having suprapubic pain and left flank pain. Has tried Macrobid for possible UTI though was not effective. Has had similar symptoms in the past and saw Urology and had her bladder scan though was unrevealing. PLAN: Will try for ultrasound of bladder and left kidney, x-ray of KUB to evaluate for kidney stone. Colorectal cancer screening: Up-to-date- followed by Dr. Capone Mammogram: Done in 07/2024 BI-RADS 1 HPI Comments History of Present Illness Details reviewed past medical history- yes reviewed surgical / hospitalization history- yes reviewed current medications- yes reviewed family history- yes home safety throw rugs? grab bars? raised toilet seat? working smoke detectors? activities of daily living difficulty bathing or showering? difficulty dressing? difficulty using the toilet? difficulty getting in and out of bed? difficulty walking? receives help from other person's with any of the above tasks? instrumental activities of daily living uses telephone - gets to place out of walking distance- go shopping for groceries- repairs own meals- does own minor home maintenance- does own laundry- does own housework- manages own money- currently takes medication- end of life planning discussed advanced directives- yes advanced directives on file? discussed wishes expressed in advanced directives. fall risk have you had any falls with injuries in the past year? have you had 2 or more falls in the past year? fall risk assessment: [facility] Medical History Lumbar herniated disc Hypoglycemia GERD (gastroesophageal reflux disease) COVID-19 vaccine series completed Macular degeneration Fluid retention in legs Pancreatitis Renal calculi Osteoarthritis Basal cell carcinoma Hiatal hernia Scoliosis Anxiety Depression Hypertension Surgical History History of right hip replacement History of esophagogastroduodenoscopy (EGD) H/O colonoscopy History of nasal septoplasty History of total left knee replacement History of section History of cholecystectomy History of hysterectomy Family History Father Cancer Mother Rheumatoid arthritis Daughter Crohn's colitis Social History Housing: House Are you a primary acute care nurse to a significant other at home: No Do you presently have visiting nurse or other home services: No Unable to assess alcohol history related to: Unknown Comment: advised to remove before surgery Patient Tobacco Use Status: Former Tobacco user Tobacco use type: Cigarette e-Cigarette/Vaping Use: Never Used Advance Directives Date on File: 06/11/14 service: No 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 Hearing needs: No Vision needs: Yes Questionnaire Medicare Wellness Checkup [age] What gender do you identify with?: female During the past 4 weeks, how much have you been bothered by emotional problems such as feeling anxious, depressed, irritable, sad or downhearted, and blue?: moderately During the past 4 weeks, has your physical & emotional health limited your social activities with family, friends, neighbors, or groups?: slightly During the past 4 weeks, how much bodily pain have you generally had?: moderate pain During the past 4 weeks, was someone available to help you if you needed & wanted help?: yes, quite a bit During the past 4 weeks, what was the hardest physical activity you could do for at least 2 minutes?: moderate Can you get to places out of walking distance without help? (For eg., can you travel alone on buses, taxis or drive your car?): Yes Can you go shopping for groceries or clothes without someone's help?: Yes Can you prepare your own meals?: Yes Can you do your housework without help?: Yes Because of any health problems, do you need the help of another person with your personal care needs such as eating, bathing, dressing or getting around the house?: No Can you handle your own money without help?: Yes During the past 4 weeks, how would you rate your health in general?: good During the past 4 weeks how have things been going for you?: good & bad parts about equal Are you having difficulties driving your car?: no Do you always fasten your seat belt when you are in a car?: yes, usually During past 4 weeks, have you been bothered by the following: never: Falling or dizzy when standing up, Sexual problems?, Trouble eating well?, Teeth or denture problems? and Problems using the telephone? and sometimes: Tiredness or fatigue? Have you fallen 2 or more times in the past year?: No Are you afraid of falling?: No Are you a smoker?: no During the past 4 weeks, how many drinks of wine, beer, or other alcoholic beverages did you have?: no alcohol at all Do you exercise for about 20 minutes 3 or more times a week?: yes, all the time Have you been given information to help with the following?: no: Hazards in your house that might hurt you? and no: Keeping track of your medications? How often do you have trouble taking medicines the way you have been told to take them?: I always take medicine as prescribed How confident are you that you can control & manage most of your health problems?: very confident What is your race?: White Mini Mental State Exam (MMSE) Orientation What is the (year) (season) (date) (day) (month)?: season Where are we (state) (county) (town or city) (hospital) (floor)?: town or city Attention & Calculation (CHOOSE ONE) Ask pt to begin with 100 & count backward by 7. Stop after 5 repeats. If pt cannot ask them to spell the word WORLD backward.: 72 Spell WORLD backwards (DLROW): 5 letters Score Score: 8 Activity of Daily Living Bathing - sponge bath, tub bath or shower: receives no assistance (gets in/out by self, if usual bathing means Dressing - getting clothes from closets & drawers, including inner/outer garments & fasteners.: gets clothes & gets completely dressed without help Toileting - going to the 'toilet room' for urine/bowel elimination & cleaning self/arranging clothes: goes to toilet room, cleans self, arranges clothes without help Transfer: moves in & out of bed and chair without help (may use support object) Continence: controls urination/bowel movements completely by self Feeding: feeds self without help Total Score: 0 Information obtained from: patient Using telephone: independent Traveling: independent Shopping: independent Preparing meals: independent Housework: independent Taking medicine: independent Managing money: independent PHQ-9 Over the last 2 weeks, how often have you been bothered by any of the following problems? 1. Little interest or pleasure in doing things: several days 2. Feeling down, depressed, or hopeless: several days 3. Trouble falling or staying asleep, or sleeping too much: several days 4. Feeling tired or having little energy: several days 5. Poor appetite or overeating: not at all 6. Feeling bad about yourself - or that you are a failure or have let yourself or your family down: not at all 7. Trouble concentrating on things, such as reading the newspaper or watching television: not at all 8. Moving or speaking so slowly that other people could have noticed. Or the opposite - being so fidgety or restless that you have been moving around a lot more than usual: not at all 9. Thoughts that you would be better off or of hurting yourself in some way: not at all Total score: 4 Depression Screening Interpretation: Positive Depression Screening Follow-up: Existing condition Depression Screening Done: Yes 21277 - PHQ-9 Billing: Yes Source: Developed by Drs. Gaurang Curiel, Renetta Dailey, Felix Johnson and colleagues, with an educational markel from [employer]. Physical Exam Vital Signs: Last Vital Signs Pulse 98 07/30/24 14:34 BP 120/72 07/30/24 14:34 Pulse Ox 97 07/30/24 14:34 Oxygen Delivery Method Room Air 07/30/24 14:34 BMI result Body Mass Index 33.6 HEENT Other: hearing screening whisper test- pass Eyes Other: vision screening- 20 20 OS OD OU Other: urinary incontinence? no Neuro Other: balance Romberg- normal tandem walk test- able walk-in turned test- able rise from sit to stand- within 2 seconds Assessment & Plan Assessment & Plan (1) Annual wellness visit: Code(s): Z00.00 - Encounter for general adult medical examination without abnormal findings Plan: ] As per HPI (2) Cervical cancer screening: Code(s): Z12.4 - Encounter for screening for malignant neoplasm of cervix Plan: Patient interested in in getting cervical cancer screening, has a partial hysterectomy though does report still having her cervix. (3) Bladder pain: Code(s): R39.89 - Other symptoms and signs involving the genitourinary system Plan: Patient reports having some lower pelvic pain, burning in quality. Has seen urology in the past for this and did have her bladder scan. She recently took a course of antibiotics though did not reduce her burning type pain. Will send for bladder ultrasound and left renal ultrasound due to her pelvic and left flank pain. She is interested in seeing a urologist again. Orders: Orders US bladder 07/30/24 R39.89 - Other symptoms and signs involving the genitourinary system XR KUB 07/30/24 R39.89 - Other symptoms and signs involving the genitourinary system US renal LT 07/30/24 R10.9 - Unspecified abdominal pain Referrals Urology Referral R39.89 - Other symptoms and signs involving the genitourinary system Medications: New alprazolam 0.25 mg PO BID 8 tabs 0RF 4 days F41.1 - Generalized anxiety disorder Quality Reporting (2019) Depression/Bipolar (159/160/161/177) PHQ-9: Total score: 4 Coding Level of Care Code Medicare Subsequent (G0439) Est Pt Level 4 (85094) Diagnoses Annual wellness visit Z00.00 Cervical cancer screening Z12.4 Bladder pain R39.89 CPT Codes Advance Care Planning - Time spent: 1-15 minutes, on File ([id number]) Advance Care Planning Advance Care Planning discussion: Completed/Scanned Date of discussion: 07/30/24 Forms completed: PATO Time spent: 1-15 minutes, on File Actual minutes spent: 6
[2024-07-30 14:34] VITALS: BP 120/72; PULSE 98; O2SAT 97; BMI 33.6
== END 2024-07-30 15:16 | disposition home or self-care (01) ==
PROVIDERS: PCP Physician Assistant; Visit Provider Physician Assistant
DX: Z00.00 Encounter for general adult medical examination without abnormal findings (principal); R39.89 Other symptoms and signs involving the genitourinary system
CPT/HCPCS: 1123F; 99214; G0439

== ENCOUNTER 2024-08-11 06:51 | Day surgery (SDC) | payer MEDICARE, SELFPAY ==
[2024-08-07 14:39] VITALS: BMI 33.1
--- NOTE | 2024-08-10 09:46 | HO.ANESPROP2 ---
Documented by User: Charley Gama NP 08/10/24 09:46 HPI - Anesthesia Eval Consult details Narrative: 69yo F for Upper Endoscopy and Colonoscopy PMF Active Problems Active Problems: All Active Problems Left flank pain (Acute) Bladder pain (Acute) Cervical cancer screening (Acute) Annual wellness visit (Acute) Increased urinary frequency (Acute) Dysphagia (Acute) Opacity of lung on imaging study (Acute) Pharyngitis (Acute) Acute bacterial sinusitis (Acute) Chest pain (Acute) Edema (Acute) Personal history of colonic polyps (Acute) Chronic constipation (Acute) Intra-abdominal infection (Acute) Hyperlipidemia (Acute) Chest discomfort (Acute) RUDY (generalized anxiety disorder) (Acute) Abdominal distension (Acute) Positive EUFEMIA (antinuclear antibody) (Acute) Pre-procedure lab exam (Acute) FRANCISCO (obstructive sleep apnea) (Acute) Blackout (Acute) Syncopal episodes (Acute) Sore throat (Acute) Recurrent major depression (Acute) Erosive gastritis with hemorrhage (Acute) Status post total left knee replacement (Acute) Status post total replacement of right hip (Acute) Primary osteoarthritis of right knee (Acute) Primary localized osteoarthritis of right hip (Acute) Trochanteric bursitis, right hip (Acute) Pancreatitis (Acute) GERD (gastroesophageal reflux disease) (Acute) Hypertension (Acute) Past Medical History Medical History Hyperlipidemia FRANCISCO (obstructive sleep apnea) Lumbar herniated disc Hypoglycemia GERD (gastroesophageal reflux disease) COVID-19 vaccine series completed Macular degeneration Fluid retention in legs Pancreatitis Renal calculi Osteoarthritis Basal cell carcinoma Hiatal hernia Scoliosis Anxiety Depression Hypertension Family History Family History Father Cancer Mother Rheumatoid arthritis Daughter Crohn's colitis Family history of problems with anesthesia: No Surgical History Surgical History History of right hip replacement (2020) History of esophagogastroduodenoscopy (EGD) H/O colonoscopy History of nasal septoplasty History of total left knee replacement History of section History of cholecystectomy History of hysterectomy History of Problems with Anesthesia: No Social History Social History Housing: House Are you a primary insurance healthcare consultant to a significant other at home: No Do you presently have visiting nurse or other home services: No Unable to assess alcohol history related to: Unknown Comment: advised to remove before surgery Patient Tobacco Use Status: Former Tobacco user Tobacco use type: Cigarette e-Cigarette/Vaping Use: Never Used Have you been hit, kicked, punched, or otherwise hurt by someone within the past year? 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 Hearing needs: No Vision needs: Yes Meds Allergies Allergy/AdvReac Type Severity Reaction Status Date / Time amoxicillin [AMOXICILLIN] Allergy Severe severe Verified 08/11/24 07:19 vomiting pumpkin Allergy Intermediate Difficulty Verified 08/11/24 07:19 Breathing adhesive tape AdvReac Intermediate rash Verified 08/11/24 07:19 hydrocodone AdvReac Intermediate dizziness, Verified 08/11/24 07:19 disorientation vicodin Allergy Intermediate Dizziness Uncoded 08/11/24 07:19 Home Medications ?Medication ?Instructions ?Recorded ?Confirmed ?Last Taken ?Type cholecalciferol (vitamin D3) 125 125 mcg PO DAILY 09/27/21 08/11/24 10/03/21 History mcg (5,000 unit) tablet (Vitamin D3) cyanocobalamin (vitamin B-12) 2,500 mcg sublingual QAM 09/28/21 08/11/24 10/03/21 History 2,500 mcg sublingual tablet (Vitamin B-12) aspirin 81 mg tablet,delayed 81 mg PO DAILY 09/25/23 08/11/24 08/05/24 History release magnesium 250 mg tablet 250 mg PO DAILY 09/25/23 08/11/24 Unknown History flaxseed oil 1,000 mg capsule 3,000 mg PO DAILY 06/01/24 08/11/24 08/05/24 History Exam Height,Weight and Vital Signs: Height 5 ft 6 in Weight 92.986 kg Assessment and Plan Assessment Anesthesia Assessment: Chart Reviewed Final Anesthetic Review Family History of Problems with Anesthesia: No History of Problems with Anesthesia: No Documented by User: Rosemary Ballesteros MD 08/11/24 08:55 PMFSH Past Medical History Medical History Hyperlipidemia FRANCISCO (obstructive sleep apnea) Lumbar herniated disc Hypoglycemia GERD (gastroesophageal reflux disease) COVID-19 vaccine series completed Macular degeneration Fluid retention in legs Pancreatitis Renal calculi Osteoarthritis Basal cell carcinoma Hiatal hernia Scoliosis Anxiety Depression Hypertension Family History Family History Father Cancer Mother Rheumatoid arthritis Daughter Crohn's colitis Surgical History Surgical History History of right hip replacement (2020) History of esophagogastroduodenoscopy (EGD) H/O colonoscopy History of nasal septoplasty History of total left knee replacement History of section History of cholecystectomy History of hysterectomy Social History Social History Housing: House Are you a primary insurance healthcare consultant to a significant other at home: No Do you presently have visiting nurse or other home services: No Unable to assess alcohol history related to: Unknown Comment: advised to remove before surgery Patient Tobacco Use Status: Former Tobacco user Tobacco use type: Cigarette e-Cigarette/Vaping Use: Never Used Have you been hit, kicked, punched, or otherwise hurt by someone within the past year? 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 Hearing needs: No Vision needs: Yes Meds Allergies Allergy/AdvReac Type Severity Reaction Status Date / Time amoxicillin [AMOXICILLIN] Allergy Severe severe Verified 08/11/24 07:19 vomiting pumpkin Allergy Intermediate Difficulty Verified 08/11/24 07:19 Breathing adhesive tape AdvReac Intermediate rash Verified 08/11/24 07:19 hydrocodone AdvReac Intermediate dizziness, Verified 08/11/24 07:19 disorientation vicodin Allergy Intermediate Dizziness Uncoded 08/11/24 07:19 Home Medications ?Medication ?Instructions ?Recorded ?Confirmed ?Last Taken ?Type cholecalciferol (vitamin D3) 125 125 mcg PO DAILY 09/27/21 08/11/24 10/03/21 History mcg (5,000 unit) tablet (Vitamin D3) cyanocobalamin (vitamin B-12) 2,500 mcg sublingual QAM 09/28/21 08/11/24 10/03/21 History 2,500 mcg sublingual tablet (Vitamin B-12) aspirin 81 mg tablet,delayed 81 mg PO DAILY 09/25/23 08/11/24 08/05/24 History release magnesium 250 mg tablet 250 mg PO DAILY 09/25/23 08/11/24 Unknown History flaxseed oil 1,000 mg capsule 3,000 mg PO DAILY 06/01/24 08/11/24 08/05/24 History Exam Airway Mallampati Class: II TM Dist: >3cm Neck ROM: Full Loose/Missing/Broken Teeth: No Heart: RRR Lungs: CTA Assessment and Plan Assessment Anesthesia Assessment: Anesthesia Plan Discussed Final Anesthetic Review NPO: Yes ASA Class: III Final Preanesthetic Review: Meds/Allgs Chart Reviewed, Consent Obtained/Reviewed and Anes Risks/Benef Reviewed Patient Risk: Low Procedure Risk: Low Anesthetic Plan Anesthetic Plan: MAC: Disposition: Standard PACU
[2024-08-11] MEDS: Lactated Ringers 1,000 ML 100 ML IVCONT (07:26)
[2024-08-11 07:27] VITALS: BP 142/74; PULSE 75; RESP 18; TEMP 36.6; O2SAT 97
[2024-08-11 07:28] VITALS: BMI 33.4
--- NOTE | 2024-08-11 08:40 | MHC.SHP ---
Pre-Procedural Eval Section A - 24 Hr Update-Section A only Date of Service: 08/11/24 Section B - Complete if H&P > 30 days Chief Complaint: screening,Epigastric pain,gerd, Details of Present Illness: see H&P Relevant Family History (Specify if Yes): No Present Medications: see Short Stay Collaborative assessment Medical History: No relevant PMH Allergies: Allergies Allergy/AdvReac Type Severity Reaction Status Date / Time amoxicillin [AMOXICILLIN] Allergy Severe severe Verified 08/11/24 07:19 vomiting pumpkin Allergy Intermediate Difficulty Verified 08/11/24 07:19 Breathing adhesive tape AdvReac Intermediate rash Verified 08/11/24 07:19 hydrocodone AdvReac Intermediate dizziness, Verified 08/11/24 07:19 disorientation vicodin Allergy Intermediate Dizziness Uncoded 08/11/24 07:19 Review of Systems Sugical H&P ROS: Negative: Constitution, Cardiovascular, Respiratory, Neurological, Psychiatric, Hem-Onc, Allergic/Immunologic, Gastrointestinal, Genitourinary, Musculoskeletal, Integumentary, Endocrine and Eyes/Ears/Nose/Throat Exam Surgical H&P Exam: Normal: HEENT, Normal: Heart, Normal: Lungs, Normal: Extremities, Normal: Abdomen, Normal: Skin and Normal: Neurological Plan I have reviewed the history and physical and performed a pertinent physical examination on my patient. No changes have occurred unless specified. Time Spent With Patient Time: Total time managing care of this patient today ____ minutes.
[2024-08-11 09:34] VITALS: BP 101/44; PULSE 70; RESP 18; TEMP 37.2; O2SAT 99
[2024-08-11 09:57] VITALS: BP 129/71; PULSE 60; RESP 17; TEMP 36.7; O2SAT 100
--- NOTE | 2024-08-11 10:10 | OP_ITS ---
DATE OF SERVICE: 08/11/2024 SURGEON: Abe Capone MD INDICATIONS: 1. Epigastric pain. 2. Colon cancer screening. PREOPERATIVE DIAGNOSIS: POSTOPERATIVE DIAGNOSIS: PROCEDURE PERFORMED: Upper endoscopy with biopsy, colonoscopy to the terminal ileum with biopsy. ESTIMATED BLOOD LOSS: COMPLICATIONS: ANESTHESIA: ASSISTANTS: SPECIMENS: MEDICATIONS: Monitored anesthesia care. DESCRIPTION OF PROCEDURE: A history and physical performed. The risks and benefits of the procedure were explained to the patient. An informed consent was obtained. The patient was placed in the left lateral decubitus position. The Olympus video gastroscope was introduced into the esophagus, stomach, and duodenum. Examination was performed. The scope was removed. She was repositioned for colonoscopy. A digital rectal exam was performed and was found to be normal. The Olympus pediatric video colonoscope was introduced into the rectum and advanced to the cecum. The cecum was identified by transillumination, palpation, and identification of ileocecal valve. Examination was performed. The scope was removed. She tolerated both procedures well and was taken to recovery in stable condition. FINDINGS: Upper endoscopy; esophagus: The esophagus was normal. There was no esophagitis. Biopsies were obtained from the EG junction. Stomach: The stomach showed no evidence of masses, ulcers, or polyps. Antral biopsies were obtained to evaluate for H pylori. Duodenum: The bulb and 2nd portion were normal. Random duodenal biopsies were obtained. Colonoscopy: The terminal ileum was normal. The visualized colonic mucosa was within normal limits without evidence of masses or ulcers. No polyps were identified. There was mild sigmoid diverticulosis. Random biopsies were obtained from the sigmoid. Retroflexed examination was normal. IMPRESSION: 1. Normal upper endoscopy. 2. Normal colonoscopy. RECOMMENDATION: Follow up the biopsy results. Screening colonoscopy in 5 years. MD MELISSA Brumfield/BRIANAL / [id number] MTDD
== END 2024-08-11 10:31 | disposition home or self-care (01) ==
PROVIDERS: PCP Physician Assistant; Visit Provider Internal Medicine Gastroenterology
PROC: (CPT 43239; principal; 2024-08-11 08:30)
DX: K21.9 Gastro-esophageal reflux disease without esophagitis (principal); R13.10 Dysphagia, unspecified; Z12.11 Encounter for screening for malignant neoplasm of colon; K57.30 Diverticulosis of large intestine without perforation or abscess without bleeding; Z86.010 Personal history of colon polyps; E78.5 Hyperlipidemia, unspecified; G47.33 Obstructive sleep apnea (adult) (pediatric)
CPT/HCPCS: 43239; 45380; 88305; 88313; 88342; J2704

== ENCOUNTER 2024-08-25 10:30 | Outpatient (REF) | payer MEDICARE, SELFPAY ==
--- NOTE | ~2024-08-25 | US_ITS ---
EXAMINATION: US RETROPERITONEAL LIMITED, LEFT(RENAL ONLY) CLINICAL INFORMATION: Left-sided flank pain. COMPARISON: CT abdomen and pelvis 06/13/2024. TECHNIQUE: Ultrasound of the left kidney only. FINDINGS: LEFT KIDNEY: 11.1 x 5.0 x 4.0 cm (SAG x AP x TRV). The kidney is normal in size, contour, and echogenicity. Renal cortical thickness is normal. No calculi . No hydronephrosis. A benign 0.6 cm mid renal Bosniak class II cyst with a small amount of mural calcification is noted which requires no additional imaging or follow up. No solid renal masses are seen. US/US renal LT IMPRESSION: Negative exam of the left kidney. Electronically signed by: Toni Leavitt MD 08/30/2024 10:43 AM EDT
--- NOTE | ~2024-08-25 | XR_ITS ---
EXAMINATION: XR KUB 3 VIEWS CLINICAL INDICATION: Other symptoms and signs involving the genitourinary system R39.89. COMPARISON: XR KUB 09/02/2017 TECHNIQUE: Supine AP view of the abdomen. FINDINGS: There is no evidence of intestinal obstruction or free air. Mild to moderate stool within the ascending, transverse, and descending colon. No soft tissue mass or organomegaly is seen. Overlying bowel contents limit evaluation for subtle urinary tract stone; no suspicious soft tissue calcification is appreciated. Degenerative changes of the spine. Status post right total hip arthroplasty. Status post cholecystectomy. XR/XR KUB IMPRESSION: No acute finding. Electronically signed by: Praneeth Sheffield MD 11/06/2024 11:17 AM EST
== END 2024-08-25 10:31 | disposition home or self-care (01) ==
LOC: HO.US 10:30
PROVIDERS: PCP Physician Assistant; Visit Provider Physician Assistant
DX: R10.9 Unspecified abdominal pain (principal); R39.89 Other symptoms and signs involving the genitourinary system
CPT/HCPCS: 74018; 76775

== ENCOUNTER 2024-09-09 11:25 | Outpatient (REF) | payer MEDICARE, SELFPAY | END 2024-09-09 11:26 | disposition home or self-care (01) | LOC: HO.US 11:25 | PROVIDERS: PCP Physician Assistant; Visit Provider Physician Assistant | DX: R39.89 Other symptoms and signs involving the genitourinary system (principal) | CPT/HCPCS: 76857 ==

== ENCOUNTER 2024-09-22 10:22 | Outpatient (AMB) | payer MEDICARE, SELFPAY ==
--- NOTE | 2024-09-22 10:53 | A.OFFVIS_ITS ---
Intake Visit Reasons: Pelvic/Bladder Pain Severe recurrent Intake Note: New patient is present for Pelvic/Bladder Pain Antibiotic Allergy: Amoxicillin Blood Thinner:Aspirin Bladder Ultrasound: 09/09/24 Renal Ultrasound: 08/25/2024 PVR: 45ML Patient states that she recently had a Urinary Tract Infection and was treated by PCP Dr Wei She states this was her first UTI never had one past Patient reports that after she finished Antibiotics for UTI she felt much better. 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 She is a patient of Dr. Wei. She is seen for the following urologic conditions - pelvic pain On exam today UA normal No blood, leuk esterase Prior episode where she had associated left flank pain Subsequently resolved Reason bladder ultrasound that shows effective storage and emptying Reassurance provided [facility] Medical History Hyperlipidemia FRANCISCO (obstructive sleep apnea) Lumbar herniated disc Hypoglycemia GERD (gastroesophageal reflux disease) COVID-19 vaccine series completed Macular degeneration Fluid retention in legs Pancreatitis Renal calculi Osteoarthritis Basal cell carcinoma Hiatal hernia Scoliosis Anxiety Depression Hypertension Surgical History History of right hip replacement (2020) History of esophagogastroduodenoscopy (EGD) H/O colonoscopy History of nasal septoplasty History of total left knee replacement History of section History of cholecystectomy History of hysterectomy Family History Father Cancer Mother Rheumatoid arthritis Daughter Crohn's colitis Social History Housing: House Are you a primary wound care technician to a significant other at home: No Do you presently have visiting nurse or other home services: No Unable to assess alcohol history related to: Unknown Comment: advised to remove before surgery Patient Tobacco Use Status: Former Tobacco user Tobacco use type: Cigarette e-Cigarette/Vaping Use: Never Used Advance Directives Date on File: 06/11/14 service: No 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 Hearing needs: No Vision needs: Yes Review of Systems Const Denies chills and Denies fever(s) Card Reports no additional complaints and Denies syncope Resp Denies cough GI Denies abdominal pain and Denies heartburn Reports as per HPI and Denies change in libido Neuro Denies syncope Psych Denies change in libido Endo Denies change in libido Physical Exam Const General: cooperative, healthy appearing, comfortable and no acute distress Orientation/consciousness: patient oriented x3 HEENT Face and sinus: Yes normal facial exam Mouth: moist mucous membranes Neck Neck: Yes normal visual inspection, Yes full ROM and Yes trachea midline Chest Chest palpation & inspection: normal inspection of the chest Resp Effort & Inspection: normal respiratory effort, able to speak in complete sentences and no respiratory distress GI Inspection: Yes normal to inspection Back/Spine/Pelvis Cervical Spine: normal cervical lordosis Thoracic/Lumbar Spine: thoracic and lumbar spine normal to inspection Skin General skin exam: no rashes or lesions noted Neuro General: patient oriented x3, gait normal, tone normal and moves all extremities Extrem General: Yes normal to inspection and Yes capillary refill normal Office Procedures Post Void Residual Post Residual Void Post Void Residual (PVR): 45 [id number] Void Residual by ultrasound Results AMB Urinalysis, Automated UA Leukoctes 0 Neto/uL Last Edit by CARLOS Flores on 09/22/24 11:09 UA Nitrite Negative Last Edit by CARLOS Flores on 09/22/24 11:09 UA Urobilinogen 0.2 mg/dL Last Edit by CARLOS Flores on 09/22/24 11:0 9 UA Protein 0 mg/dL Last Edit by CARLOS Flores on 09/22/24 11:09 UA pH 6.0 Last Edit by CARLOS Flores on 09/22/24 11:09 UA Blood 0 Dez/uL Last Edit by CARLOS Flores on 09/22/24 11:09 UA Specific [place] 1.020 Last Edit by ASIA FloresA on 09/22/24 11: 09 UA Ketone Negative Last Edit by Lu Funez RMA on 09/22/24 11:09 UA Bilirubin 0 mg/dL Last Edit by Lu Funez, RMA on 09/22/24 11:09 UA Glucose 0 mg/dL Last Edit by ASIA FloresA on 09/22/24 11:09 Results Reviewed Results Reviewed: Laboratory Last Values Urine pH (Auto) 6.0 09/22/24 10:58 Specific [place] (Auto) 1.020 09/22/24 10:58 Urine Protein (Auto) 0 mg/dL 09/22/24 10:58 Glucose (UA)(Auto) 0 mg/dL 09/22/24 10:58 Urine Ketones (Auto) Negative 09/22/24 10:58 Urine Blood (Auto) 0 Dez/uL 09/22/24 10:58 Urine Nitrite (Auto) Negative 09/22/24 10:58 Urine Bilirubin (Auto) 0 mg/dL 09/22/24 10:58 Urine Urobilinogen (Auto) 0.2 mg/dL 09/22/24 10:58 Leukocyte Esterase (Auto) 0 Neto/uL 09/22/24 10:58 Assessment & Plan Assessment & Plan (1) Bladder pain: Code(s): R39.89 - Other symptoms and signs involving the genitourinary system Category: Medical Plan Reassurance provided Orders: Orders AMB Urinalysis Automated 09/22/24 Z13.9 - Encounter for screening, unspecified AMB Post Void Residual by ultrasound 09/22/24 R39.89 - Other symptoms and signs involving the genitourinary system Patient Instructions: Imaging studies, laboratory and physical exam results were discussed and reviewed in detail. No major barriers to patient understanding were identified. An opportunity to ask questions regarding the treatment plan was provided. All questions were answered. The patient expressed understanding and agreement with the above treatment plan. The patient is aware they should contact our office by phone for worsening of their current condition or the appearance of new urologic symptoms. Compliance is encouraged with any medications and followup testing that is ordered. It is a privilege to participate in the urologic care of your patient. If you have any questions or concerns regarding treatment for the above conditions, or other urologic issues, please do not hesitate to contact me. The office telephone contact is [phone]. This note is constructed using voice recognition software. While every effort has been made to ensure accuracy order planner errors may have been included. Yours sincerely, Dr Mack Bunn MD, [facility] - Urology Providers of Expert, Compassionate Care for the Genitourinary System Coding Level of Care Code New Pt Level 3 (34291) Diagnoses Bladder pain R39.89 CPT Codes Post Residual Void - PVR CPT Code: 28787-Rxkg Void Residual by ultrasound ([id number])
== END 2024-09-22 11:36 | disposition home or self-care (01) ==
LOC: HO.HUSH 10:23
PROVIDERS: PCP Physician Assistant; Visit Provider Urology
DX: R39.89 Other symptoms and signs involving the genitourinary system (principal)
CPT/HCPCS: 99203

== ENCOUNTER → 2024-09-22 10:22 | Outpatient (BNVA) | payer MEDICARE, SELFPAY | PROVIDERS: PCP Physician Assistant; Visit Provider Urology | DX: R39.89 Other symptoms and signs involving the genitourinary system (principal); R10.2 Pelvic and perineal pain | CPT/HCPCS: 51798; 81003; 99202 ==

== ENCOUNTER 2024-10-19 16:05 | Outpatient (AMB) | payer MEDICARE, SELFPAY ==
--- NOTE | 2024-10-19 16:06 | MHC.PC.OV ---
Intake Visit Reasons: Sore throat and ? sinus infection Bank Manager Required: No Accompanied by: Self / Same As Patient Allergies amoxicillin [AMOXICILLIN] Allergy (Severe, Verified 10/19/24 16:36) severe vomiting pumpkin Allergy (Intermediate, Verified 10/19/24 16:36) Difficulty Breathing adhesive tape Adverse Reaction (Intermediate, Verified 10/19/24 16:36) rash hydrocodone Adverse Reaction (Intermediate, Verified 10/19/24 16:36) dizziness, disorientation vicodin Allergy (Intermediate, Uncoded 10/19/24 16:36) Dizziness Medication List - Last Reconciled 10/19/24 by Chiki Wei PA-C alprazolam 0.25 mg PO BID 4 days aspirin 81 mg PO DAILY cholecalciferol (vitamin D3) (Vitamin D3) 125 mcg PO DAILY cyanocobalamin (vitamin B-12) (Vitamin B-12) 2,500 mcg sublingual QAM flaxseed oil 3,000 mg PO DAILY furosemide (Lasix) 20 mg PO DAILY PRN 30 days magnesium 250 mg PO DAILY paroxetine HCl 40 mg PO BEDTIME walker Folding Front wheeled walker Tobacco use date assessed: 11/26/23 Dental Screening Dental Screen Date: 11/26/23 HPI Sore throat and ? sinus infection HPI Details Patient is a 69-year-old female being evaluated via telephone only. Reports having a sore throat and sinus congestion over the last week. She reports using [id number] cough cold medications though have not been effective. She reports she will be traveling via vehicle to [place] to see family and would like treatment before she leaves. [facility] Medical History Hyperlipidemia FRANCISCO (obstructive sleep apnea) Lumbar herniated disc Hypoglycemia GERD (gastroesophageal reflux disease) COVID-19 vaccine series completed Macular degeneration Fluid retention in legs Pancreatitis Renal calculi Osteoarthritis Basal cell carcinoma Hiatal hernia Scoliosis Anxiety Depression Hypertension Surgical History History of right hip replacement (2020) History of esophagogastroduodenoscopy (EGD) H/O colonoscopy History of nasal septoplasty History of total left knee replacement History of section History of cholecystectomy History of hysterectomy Family History Father Cancer Mother Rheumatoid arthritis Daughter Crohn's colitis Social History Housing: House Are you a primary nurse wound care to a significant other at home: No Do you presently have visiting nurse or other home services: No Unable to assess alcohol history related to: Unknown Comment: advised to remove before surgery Patient Tobacco Use Status: Former Tobacco user Tobacco use type: Cigarette e-Cigarette/Vaping Use: Never Used Advance Directives Date on File: 06/11/14 service: No 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 Gaurang Curiel, Renetta Dailey, Felix Johnson and colleagues, with an educational markel from [employer]. Review of Systems Const Reports headache(s) Eyes Denies loss of vision ENT Denies vertigo, Denies dizziness, Reports headache(s), Reports post nasal drip, Reports sinus pain, Reports sinus pressure and Reports sore throat Card Denies chest pain, Denies leg edema and Denies lightheadedness Resp Denies cough, Denies hemoptysis and Denies wheezing GI Denies abdominal pain, Denies melena, Denies constipation, Denies diarrhea and Denies vomiting Denies urinary frequency, Denies dysuria and Denies urinary urgency Musc Denies arthralgias, Denies joint swelling, Denies numbness and Denies tingling Neuro Denies behavioral changes, Denies vertigo, Denies dizziness, Reports headache(s), Denies loss of vision, Denies memory loss, Denies numbness and Denies tingling Psych Denies anxiety, Denies behavioral changes, Denies depression, Denies memory loss and Denies panic attacks Roshan/Lymph Denies easy bleeding and Denies easy bruising Aller/Immun Denies wheezing Physical exam (Primary Care) Tobacco/Smoking Status: Tobacco use Status Tobacco use date assessed 11/26/23 10/19/24 16:06 Patient Tobacco Use Status Former Tobacco user 10/19/24 16:06 Tobacco use type Cigarette 10/19/24 16:06 e-Cigarette/Vaping Use Never Used 10/19/24 16:06 Thrive Assessment: Date of Thrive Assessment Date Thrive assessed 11/26/23 10/19/24 16:06 Telehealth Telehealth Telehealth Platform: Telephone Location of provider rendering services: practice address Location of patient: address on file Patient Identification confirmed using: Name, : Yes Telehealth method: voice only Patient verbally consented to treatment: Yes Patient verbally consented to billing insurance company: Yes Patient informed of any privacy concerns related to visit: Yes Minutes spent on Phone/Video with Pt.: 10 Coding Level of Care Code Tele Est Pt Level 3 (09672) Diagnoses Acute non-recurrent frontal sinusitis J01.10 Chronicity: acute Recurrence: non-recurrent Sinusitis location: frontal Assessment & Plan Assessment & Plan (1) Sinus infection: Code(s): J32.9 - Chronic sinusitis, unspecified Category: Medical Qualifiers: Chronicity: acute Recurrence: non-recurrent Sinusitis location: frontal Qualified Code(s): J01.10 - Acute frontal sinusitis, unspecified Plan: Patient's signs symptoms most consistent with a sinus infection. Has had azithromycin in the past with good relief of her symptoms. Due to patient's symptoms being a week now will treat with antibiotic. Medications: New azithromycin For 250 mg dose pack: take 500 mg today (day 1), then 250 mg for 4 days (days 2-5) PO 6 tabs 0RF J01.10 - Acute frontal sinusitis, unspecified
== END 2024-10-19 16:40 | disposition home or self-care (01) ==
LOC: HO.HMCH 16:05
PROVIDERS: PCP Physician Assistant; Visit Provider Physician Assistant
DX: J01.10 Acute frontal sinusitis, unspecified (principal)

== ENCOUNTER → 2024-10-19 16:05 | Outpatient (BNVA) | payer MEDICARE, SELFPAY | PROVIDERS: PCP Physician Assistant; Visit Provider Physician Assistant ==

== ENCOUNTER 2025-02-18 12:28 | Outpatient (AMB) | payer MEDICARE, SELFPAY ==
--- NOTE | 2025-02-18 12:41 | A.OFFVIS_ITS ---
Intake Visit Reasons: Inj-RT knee cortisone - last 05/07/24 Intake Note: Maria Antonia is a 69 year old female who presents today for a follow up of her right knee OA, her last injection was administered on 05/07/24. Patient reports that this injection was helpful and she would like to repeat an injection today. She is looking to also discuss surgery for possible fall/winter Allergies amoxicillin [AMOXICILLIN] Allergy (Severe, Verified 02/18/25 12:48) severe vomiting pumpkin Allergy (Intermediate, Verified 02/18/25 12:48) Difficulty Breathing adhesive tape Adverse Reaction (Intermediate, Verified 02/18/25 12:48) rash hydrocodone Adverse Reaction (Intermediate, Verified 02/18/25 12:48) dizziness, disorientation vicodin Allergy (Intermediate, Uncoded 02/18/25 12:48) Dizziness HPI HPI Inj-RT knee cortisone - last 05/07/24: Details: I The patient is a 69-year-old female presenting with knee pain and evaluation of a potential rotator cuff injury. Her primary concern involves a sensation of her right knee popping in and out of place, although she can perform activities like walking and treadmill exercises without pain. This popping sensation is uncomfortable after extended sitting, but she maintains effective mobility for daily activities. She recently returned from a trip to [place] where she managed to walk three miles without significant issues, although she noted slight tiredness afterward. Additionally, she reports a longstanding history of shoulder pain, suspecting a rotator cuff tear that causes restricted movement. This condition affects her ab ility to conduct daily tasks, having to use her left hand for activities like brushing her teeth or hair due to right arm limitations. Despite this, she is not currently undergoing physical therapy, and the shoulder pain might be aggravated by potential inflammation or irritation. COUNTS INCLUDE 234 BEDS AT THE [facility] Medical History Hyperlipidemia FRANCISCO (obstructive sleep apnea) Lumbar herniated disc Hypoglycemia GERD (gastroesophageal reflux disease) COVID-19 vaccine series completed Macular degeneration Fluid retention in legs Pancreatitis Renal calculi Osteoarthritis Basal cell carcinoma Hiatal hernia Scoliosis Anxiety Depression Hypertension Surgical History History of right hip replacement (2020) History of esophagogastroduodenoscopy (EGD) H/O colonoscopy History of nasal septoplasty History of total left knee replacement History of section History of cholecystectomy History of hysterectomy Family History Father Cancer Mother Rheumatoid arthritis Daughter Crohn's colitis Social History Housing: House Are you a primary overnight caregiver to a significant other at home: No Do you presently have visiting nurse or other home services: No Unable to assess alcohol history related to: Unknown Comment: advised to remove before surgery Patient Tobacco Use Status: Former Tobacco user Tobacco use type: Cigarette e-Cigarette/Vaping Use: Never Used Advance Directives Date on File: 06/11/14 service: No 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 There is a trace effusion no joint line tenderness. Unremarkable exam. Right shoulder notable for positive Vazquez and Neer otherwise unremarkable. Full range of motion with no obvious rotator cuff weakness. Assessment & Plan Assessment & Plan (1) Primary osteoarthritis of right knee: Code(s): M17.11 - Unilateral primary osteoarthritis, right knee Category: Medical Plan: I discussed with the patient the possibility of continued conservative management for her knee, given her minimal pain during ambulation and effective daily activities. We reviewed the symptoms related to her shoulder pain and the anticipated benefits of physical therapy to enhance her range of motion and muscle strength. Furthermore, the potential use of NSAIDs or corticosteroid injections was considered to manage inflammation and discomfort unresolved by physical therapy. The discussion included alternatives such as surgical intervention, potential diagnostics like MRI for further evaluation, and associated risks and benefits. The patient expressed understanding and consented to the proposed management plan with follow-up adjustments based on therapy outcomes. The plan involves continuous monitoring of the knee's current state, given the absence of severe pain with normal activities like walking. Initiate physical therapy for the shoulder to address pain and limited mobility associated with the suspected rotator cuff injury. If improvement is not observed with therapy, consideration of further diagnostics such as an MRI is recommended. Additional interventions for shoulder inflammation include NSAIDs or corticosteroid injections if necessary. T (2) Painful arc syndrome of right shoulder: Code(s): M75.101 - Unspecified rotator cuff tear or rupture of right shoulder, not specified as traumatic Category: Medical Plan: We discussed PT versus injections but at this time her symptoms are improving after short time and I do not recommend any intervention. If her pain does not continue to improve she can return to see me for injections. Coding Level of Care Code Est Pt Level 3 (41100) Complex EM visit Add On G2211 Diagnoses Primary osteoarthritis of right knee M17.11 Painful arc syndrome of right shoulder M75.101
== END 2025-02-18 13:07 | disposition home or self-care (01) ==
LOC: HO.HOS 12:29
PROVIDERS: PCP Physician Assistant; Visit Provider Orthopaedic Surgery
DX: M17.11 Unilateral primary osteoarthritis, right knee (principal); M75.101 Unspecified rotator cuff tear or rupture of right shoulder, not specified as traumatic
CPT/HCPCS: 99213

== ENCOUNTER → 2025-02-18 12:28 | Outpatient (BNVA) | payer MEDICARE, SELFPAY | PROVIDERS: PCP Physician Assistant; Visit Provider Orthopaedic Surgery | DX: M17.11 Unilateral primary osteoarthritis, right knee (principal); M75.101 Unspecified rotator cuff tear or rupture of right shoulder, not specified as traumatic | CPT/HCPCS: 99212 ==

== ENCOUNTER 2025-04-27 18:30 | Emergency (ER) | payer MEDICARE, SELFPAY ==
--- NOTE | ~2025-04-27 | XR_ITS ---
CLINICAL HISTORY: cp 1 view chest x-ray Comparison: None Findings: The lungs are clear. Heart size is normal. No acute fracture. IMPRESSION: 1. No acute findings. This document has been electronically signed by: Edi Hughes MD on 04/27/2025 19:58:44
--- NOTE | ~2025-04-27 | CT_ITS ---
CLINICAL HISTORY: pan CT Brain without contrast Comparison: None FINDINGS: Cortical sulci: There is diffuse prominence of the cortical sulci compatible with age-related atrophy. Ventricles: Normal for age. Brain parenchyma: There is patchy lucency throughout the deep white matter indicating chronic microvascular leukomalacia. Extra-axial spaces: Normal. Posterior Fossa: Normal. Extracranial soft tissues: Normal. Additional abnormality: None. IMPRESSION: Age-related atrophy with chronic microvascular leukomalacia. No hemorrhage, mass effect, or acute findings identified. This document has been electronically signed by: Edi Hughes MD on 04/27/2025 19:04:57
--- NOTE | ~2025-04-27 | CT_ITS ---
CLINICAL HISTORY: dizziness, pan sudden onset CT angiography head and neck with contrast. 3D Postprocessing. Comparison: CT/SR - CT HEAD/BRAIN WO IV CON - 04/27/25 18:[address]/SR - CT ANGIO HEAD - 11/13/23 10:37 EST Findings: Aortic arch and cervical great vessels are patent with no aneurysm, dissection, hemodynamically significant stenoses, or occlusion. Intracranial arteries are patent. No aneurysm, dissection, hemodynamically significant stenoses, or occlusion. No abnormal intracranial enhancement. The visualized thyroid gland is unremarkable. No cervical mass or fluid collection. Lung apices clear. No acute fracture. IMPRESSION: Patent head and neck CTA. This document has been electronically signed by: Virginia Briscoe MD on 04/27/2025 22:10:52
[2025-04-27 18:32] VITALS: BMI 36.1
[2025-04-27 18:36] VITALS: BP 148/73; PULSE 87; O2SAT 96
--- NOTE | 2025-04-27 18:36 | ECG_ITS ---
Test Reason : General weakness Blood Pressure : */* mmHG Vent. Rate : 78 BPM Atrial Rate : 78 BPM P-R Int : 154 ms QRS Dur : 74 ms QT Int : 386 ms P-R-T Axes : 46 2 23 degrees QTcB Int : 440 ms Normal sinus rhythm Cannot rule out Anterior infarct (cited on or before 13-Jun-2024) Abnormal ECG When compared with ECG of 13-Jun-2024 11:45, No significant change was found Referred By: Kelsey Baum Electronically Signed By: CHELA FRANKS
--- NOTE | 2025-04-27 18:38 | ED_ITS ---
HPI - Altered Mental Status General Chief Complaint: Weakness Stated Complaint: AMS Time Seen by Provider: 04/27/25 18:34 History of Present Illness HPI narrative: Patient is 69-year-old female with a history of hyperlipidemia previous history of syncope had sudden onset of headache that started approximately 45 minutes ago. Generalized malaise that started at the same time. There is no gross change in speech. There is no fever no chills. There is no coughing or congestion. There is no bloody stool. Patient not on blood thinners. Brought in by EMS for further evaluation. Patient was using the bathroom at the time and suddenly got numbness to bilateral hands weakness and headache. F Related Data Home Medications ?Medication ?Instructions ?Recorded ?Confirmed cholecalciferol (vitamin D3) 125 125 mcg PO DAILY 09/27/21 10/19/24 mcg (5,000 unit) tablet (Vitamin D3) cyanocobalamin (vitamin B-12) 2,500 mcg sublingual QAM 09/28/21 10/19/24 2,500 mcg sublingual tablet (Vitamin B-12) aspirin 81 mg tablet,delayed 81 mg PO DAILY 09/25/23 10/19/24 release magnesium 250 mg tablet 250 mg PO DAILY 09/25/23 10/19/24 flaxseed oil 1,000 mg capsule 3,000 mg PO DAILY 06/01/24 10/19/24 Previous Rx's ?Medication ?Instructions ?Recorded walker #1 ea 09/01/21 paroxetine HCl 40 mg tablet 40 mg PO BEDTIME #90 tabs 07/14/24 alprazolam 0.25 mg tablet 0.25 mg PO BID 4 days #8 tabs 07/30/24 azithromycin 250 mg tablet See Rx Instructions PO .COMPLEX #6 10/19/24 tabs nitrofurantoin 100 mg PO Q12H 5 days #10 caps 02/02/25 monohydrate/macrocrystals 100 mg capsule (Macrobid) furosemide 20 mg tablet (Lasix) 20 mg PO DAILY PRN edema 30 days 04/01/25 #30 tabs Allergies Allergy/AdvReac Type Severity Reaction Status Date / Time amoxicillin [AMOXICILLIN] Allergy Severe severe Verified 04/27/25 18:46 vomiting pumpkin Allergy Intermediate Difficulty Verified 04/27/25 18:46 Breathing adhesive tape AdvReac Intermediate rash Verified 04/27/25 18:46 hydrocodone AdvReac Intermediate dizziness, Verified 04/27/25 18:46 disorientation vicodin Allergy Intermediate Dizziness Uncoded 02/18/25 12:48 Review of Systems 2 Review of Systems: No fever no chills no chest pain or diaphoresis positive headache positive generalized malaise Yes all other systems are reviewed and are negative [facility] Past Medical History Attestation statement: The following information was validated with the patient. Medical History Hyperlipidemia FRANICSCO (obstructive sleep apnea) Lumbar herniated disc Hypoglycemia GERD (gastroesophageal reflux disease) COVID-19 vaccine series completed Macular degeneration Fluid retention in legs Pancreatitis Renal calculi Osteoarthritis Basal cell carcinoma Hiatal hernia Scoliosis Anxiety Depression Hypertension Surgical History History of right hip replacement (2020) History of esophagogastroduodenoscopy (EGD) H/O colonoscopy History of nasal septoplasty History of total left knee replacement History of section History of cholecystectomy History of hysterectomy Family History Family History Father Cancer Mother Rheumatoid arthritis Daughter Crohn's colitis Social History Social History Housing: House Are you a primary home health care case manager to a significant other at home: No Do you presently have visiting nurse or other home services: No Unable to assess alcohol history related to: Unknown Comment: advised to remove before surgery Patient Tobacco Use Status: Former Tobacco user Tobacco use type: Cigarette e-Cigarette/Vaping Use: Never Used Use of substances other than those prescribed or required for medical reasons: No Advance Directives: No Advance Directives Information Provided: No Advance Directives Date on File: 06/11/14 service: No 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 Oriented X3. No acute distress. Eyes: Pupils equal, round and reactive to light. ENT: Pharynx normal. Neck: Normal inspection. Neck supple. No lymph nodes noted. No crepitus CVS: Normal heart rate and rhythm. Pulses normal. Normal S1 and S2 Respiratory: No respiratory distress. Breath sounds normal. No Wheezing. No rales Abdomen: Soft and nontender. No rigidity. No distention. good BS x4 Skin: Skin warm and dry. Normal skin color. Normal skin turgor. Extremities: No lower extremity edema. Neurovascular intact to all extremities. No Lacerations. No Rash Neuro: Oriented X 3. No motor deficit. No sensory deficit. Moving all extermities. No slurred speech NIH Stroke Scale Internal: Initial- Upon Arrival Time: 18:41 Level of Consciousness: Alert Level of Consciousness Questions: Answers both questions correctly Level of Consciousness Commands: Performs both tasks correctly Best Gaze: Normal Visual: No visual loss Facial Palsy: Normal Motor Arm (Right): No drift Motor Arm (Left): No drift Motor Leg (Right): No drift Motor Leg (Left): No drift Limb Ataxia: Absent Sensory: Normal Best Language: No aphasia Dysarthia: Normal Extinction and Inattention: No abnormality Score: 0 Medications Administered Discontinued Medications Generic Name Dose Route Start Last Admin Trade Name Freq PRN Reason Stop Dose Admin Sodium Chloride 1,000 mls @ 999 mls/hr 04/27/25 18:45 04/27/25 20:47 Ns IV 04/27/25 19:45 Infused .Q1H1M TAYLA Infusion Iohexol 70 ml 04/27/25 21:24 04/27/25 21:25 Iohexol 350 Mg/Ml 100 Ml Infus..Btl IV 04/27/25 21:25 70 ml ONCE ONE Administration Medical Decision Making Medical Decision Making [facility] Narrative: Patient is 69 years old presents today with sudden onset of generalized malaise. He was bilateral. It is not associated with chest pain or diaphoresis. Patient denies any fever chills. There is no change in speech. There is no change in vision. Patient's white count was normal. Hemoglobin is 10.7 had a level similar to this in the past. Patient's electrolytes showed normal creatinine. Patient's urine showed no signs of infection. Initially a CT head was done as patient had sudden onset of headache just prior to arrival. My interpretation of that is CT scan head was grossly negative for any acute evidence of bleeding. I reviewed radiology's reading which was the same. My interpretation patient's chest x-ray is grossly negative. There is no evidence for pneumonia pneumothorax. My interpretation patient's EKG showed a sinus rhythm heart rate is 80 CO QRS QTC normal no acute ST segment elevation when compared to previous EKGs this is about the same. Patient in no distress. A CTA was ordered to look for aneurysms. If it is negative will discharge patient home. Close follow-up advised. Patient denies any near syncopal or syncopal episode just had generalized malaise that was very sudden on onset associated with some headache. I received sign-out from my colleague Dr. Baum CT of the head and neck does not show any acute abnormalities, no aneurysms, normal patency Patient overall feeling better, it is possible the symptoms are likely secondary to anxiety. Differential Diagnosis Differential Diagnoses: The differential diagnosis associated with the presentation includes Intracranial bleed, aneurysm, anemia, infection, UTI Admission/Observation Consideration of admission/observation: Escalation of care including admission/observation considered Lab Data MDM Lab Attestation statement: I reviewed the patient's lab results. 04/27/25 19:29 04/27/25 19:29 Labs: Lab Results 04/27/25 04/27/25 04/27/25 Range/Units 19:28 19:29 20:08 WBC 6.2 (4.8-10.8) X10*3/uL RBC 4.44 (4.20-5.50) X10*6/uL Hgb 10.7 L (12.0-16.0) g/dl Hct 33.4 L (37.0-47.0) % MCV 75.2 L (80.0-98.0) fL MCH 24.1 L (27.0-33.0) pg MCHC 32.0 (31.0-35.0) g/dl RDW 15.6 (11.0-16.0) % Plt Count 243 (160-400) X10*3/uL MPV 9.1 L (9.4-12.3) fL Immature Gran % (Auto) 0.2 (0.0-0.4) % Neut % (Auto) 53.9 (45-73) % Lymph % (Auto) 35.0 (20-40) % Elmore % (Auto) 8.3 (2-11) % Eos % (Auto) 2.1 (0-4) % Baso % (Auto) 0.5 (0-2) % Lymph # (Auto) 2.2 (1.2-4.9) X10*3/uL Elmore # (Auto) 0.5 (0.1-1.2) X10*3/uL Eos # (Auto) 0.1 (0.0-0.4) X10*3/uL Baso # (Auto) 0.0 (0.0-0.2) X10*3/uL Abs Immat Gran (auto) 0.01 (0.00-0.03) X10*3/uL Absolute Neuts (auto) 3.4 (2.0-8.3) x10*3/uL Absolute Nucleated RBC 0.000 (0.0-0.012) X10*3/uL Nucleated RBC % (auto) 0.0 (0.0-0.2) /100WBC Sodium 142 (135-145) mmol/L Potassium 3.4 (3.3-5.1) mmol/L Chloride 109 H (96-108) mmol/L Carbon Dioxide 24 (22-29) mmol/L Anion Gap 12 (12-20) BUN 15 (9-16) mg/dL Creatinine 0.71 (0.5-1.4) mg/dL Estim Creat Clear Calc 87.4 Estimated GFR > 60 Random Glucose 104 (60-115) mg/dL Calcium 9.2 D (8.4-10.2) mg/dL Total Bilirubin 0.2 (0.0-1.0) mg/dL Direct Bilirubin < 0.2 (0.0-0.5) mg/dL AST 26 (5-31) U/L ALT 26 (0-31) U/L Alkaline Phosphatase 104 (39-117) U/L Troponin I High Sens < 2.7 (<3.5-17.0) ng/L Total Protein 6.4 L (6.5-8.0) g/dL Albumin 3.9 (3.5-5.0) g/dL Urine Color Yellow Urine Appearance Clear Urine pH 8.5 (5.0-9.0) Ur Specific Marcell 1.010 (1.005-1.025) Urine Protein Negative (Neg-Trace) mg/dL Urine Glucose (UA) Negative (Negative) mg/dL Urine Ketones Negative (Negative) mg/dL Urine Blood Negative (Negative) Urine Nitrite Negative (Negative) Ur Leukocyte Esterase Negative (Negative) Urine RBC 0-2 (0-2) /HPF Urine WBC 0-5 (0-5) /HPF Ur Squamous Epith Cells 0-2 (0-2) /HPF Urine Bacteria None Seen (None Seen) Hyaline Casts 0-2 (0-2) /LPF Independent Interpretation I performed an independent interpretation of an: EKG ( sinus heart rate is 80 CO QRS QTC normal no acute ST segment elevation), Plain X-Ray ( chest x-ray grossly negative) and CT Scan ( CT scan head was grossly negative for any acute evidence of bleeding) Radiology Impression Discussion of test interpretation with radiology: I have reviewed the radiologist's reading. Radiologist Impression: Aortic arch and cervical great vessels are patent with no aneurysm, dissection, hemodynamically significant stenoses, or occlusion. Intracranial arteries are patent. No aneurysm, dissection, hemodynamically significant stenoses, or occlusion. No abnormal intracranial enhancement. The visualized thyroid gland is unremarkable. No cervical mass or fluid collection. Lung apices clear. No acute fracture. IMPRESSION: Patent head and neck CTA. Independent Historian Clinical information obtained from an independent historian. History obtained from or confirmed by: Spouse External Record Review External record reviewed: Primary care record Chronic Conditions history of hyperlipidemia, history of pancreatitis osteoarthritis anxiety depression hypertension Critical Care Time Critical Care Time Critical Care Time: Yes Total Critical Care Time: 45 Attestation: I have personally provided critical care time. Time includes review of lab data, radiology results, discussion with consultants, and monitoring for potential decompensation. Intervention performed as documented. Discharge Plan Discharge Clinical Impression: Weakness, Anxiety Patient Disposition: Home, Self-Care Instructions: Weakness (ED), Anxiety (ED) Prescriptions: No Action (DME) walker Misc See Rx Instructions .MEDSUPPLY Qty: 1 0RF Rx Instructions: Folding Front wheeled walker paroxetine HCl 40 mg tablet 40 mg PO BEDTIME Qty: 90 1RF nitrofurantoin monohyd/m-cryst [Macrobid] 100 mg capsule 100 mg PO Q12H 5 Days Qty: 10 0RF Rx Instructions: must administer with a meal/food furosemide [Lasix] 20 mg tablet 20 mg PO DAILY PRN (Reason: edema) 30 Days Qty: 30 2RF cholecalciferol (vitamin D3) [Vitamin D3] 125 mcg (5,000 unit) Tablet 125 mcg PO DAILY cyanocobalamin (vitamin B-12) [Vitamin B-12] 2,500 mcg Tablet, Sublingual 2,500 mcg SUBLINGUAL QAM flaxseed oil 1,000 mg capsule 3,000 mg PO DAILY aspirin 81 mg tablet,delayed release (DR/EC) 81 mg PO DAILY magnesium 250 mg tablet 250 mg PO DAILY alprazolam 0.25 mg tablet 0.25 mg PO BID 4 Days Qty: 8 0RF azithromycin 250 mg tablet See Rx Instructions PO .COMPLEX Qty: 6 0RF Rx Instructions: For 250 mg dose pack: take 500 mg today (day 1), then 250 mg for 4 days (days 2-5) PO Referrals: Chiki Wei PA-C [Primary Care Provider] - 04/29/25 Print Language: [place]
[2025-04-27 18:42] VITALS: BP 126/62; PULSE 70; RESP 18; TEMP 37.2; O2SAT 99; BMI 36.1
[2025-04-27] MEDS: 0.9 % Sodium Chloride 1,000 ML 999 ML IV (18:49)
[2025-04-27 19:32] LABS: MANUAL DIFF FLAG NO
--- OUTSIDE RECORDS SUMMARY | 2025-04-27 19:48 | XMS_ITS ---
Author Organization [facility] Address [address] [place] [id number] Care Team Providers Care Negative Retoucher Name Role Phone Chiki Wei Primary Care Provider Unavailab Abe Turner Jr REASON FOR VISIT records reviewed Encounters Encounter Location Date Provider Diagnosis [facility] [address] [place] [address] 06/18/2024 Abe Capone Jr Plan Of Treatment No Information Progress Notes * ANTONINA LARSON MDOB:[birth year] (69 yo F)Acc No.[id number]:06/18/2024 Patient:?ANTONINA LARSON :1955???Age:69 Y???Sex:Female [address]:[address] [place] [address], [id number] * true * Date:? Generated for Printi breanna/Jaimee/eTransmitting on:?04/27/2025 07:47 PM EDT
[2025-04-27 19:53] LABS: Alanine Aminotransferase 26 U/L (0-31); Albumin Level 3.9 g/dL (3.5-5.0); Alkaline Phosphatase 104 U/L (39-117); Anion Gap 12 (12-20); Aspartate Amino Transferase 26 U/L (5-31); Basophils Percent Auto 0.5 % (0-2); Bilirubin Direct < 0.2 mg/dL (0.0-0.5); Bilirubin Total 0.2 mg/dL (0.0-1.0); Blood Urea Nitrogen 15 mg/dL (9-16); Calcium 9.2 mg/dL (8.4-10.2); Carbon Dioxide 24 mmol/L (22-29); Chloride 109 mmol/L (96-108); Creatinine Clr Calc Pharmacy 87.4; Eosinophils Absolute Auto 0.1 X10*3/uL (0.0-0.4); Eosinophils Percent Auto 2.1 % (0-4); Estimated Glomerular Filt Rate > 60; Glucose Random 104 mg/dL (60-115); Hematocrit 33.4 % (37.0-47.0); Hemoglobin 10.7 g/dl (12.0-16.0); Imm Gran Abs Auto 0.01 X10*3/uL (0.00-0.03); Imm Gran Pct Auto 0.2 % (0.0-0.4); Lymphocytes Absolute Auto 2.2 X10*3/uL (1.2-4.9); Mean Corpuscular Hemoglobin 24.1 pg (27.0-33.0); Mean Corpuscular Volume 75.2 fL (80.0-98.0); Mean Platelet Volume 9.1 fL (9.4-12.3); Monocytes Absolute Auto 0.5 X10*3/uL (0.1-1.2); Monocytes Percent Auto 8.3 % (2-11); Neutrophils Absolute Auto 3.4 x10*3/uL (2.0-8.3); Neutrophils Percent Auto 53.9 % (45-73); Platelet Count 243 X10*3/uL (160-400); Potassium 3.4 mmol/L (3.3-5.1); Red Blood Count 4.44 X10*6/uL (4.20-5.50); Red Cell Distribution Width 15.6 % (11.0-16.0); Sodium 142 mmol/L (135-145); Total Protein 6.4 g/dL (6.5-8.0); White Blood Count 6.2 X10*3/uL (4.8-10.8)
[2025-04-27 19:55] LABS: Troponin-I High Sensitivity < 2.7 ng/L (<3.5-17.0)
[2025-04-27 20:09] VITALS: BP 134/65; PULSE 73; RESP 16; TEMP 36.6; O2SAT 95
[2025-04-27 20:20] LABS: Appearance Urine Clear; Color Urine Yellow; Glucose Urine UA Negative (Negative); Leukocyte Esterase Urine Negative (Negative); Nitrite Urine Negative (Negative); PH 8.5 (5.0-9.0); Urine Blood Negative (Negative); Urine Ketones Negative (Negative); Urine Protein Negative (Neg-Trace)
[2025-04-27 20:22] LABS: Bacteria Urine None Seen (None Seen); Hyaline Casts Urine 0-2 /LPF (0-2); RBC Urine 0-2 /HPF (0-2); Squamous Epithelial Cell Urine 0-2 /HPF (0-2); WBC Urine 0-5 /HPF (0-5)
--- NOTE | 2025-04-27 21:06 | PC.NURSE ---
assumed care of patient at 1900. pt A&Ox4, in no apparent distress, vital signs updated. pt ambulatory to and from bathroom with a steady gait with one person standby assist, urine sample collected and sent to lab. pt reports relief of symptoms/weakness/slurred speech. no facial droop, abnormal speech or gait noted. pt back in stretcher, on monitoring manager, pending CTA scan. at bedside. call peterson within reach, plan of care continues,.
[2025-04-27] MEDS: iohexoL 350 MG/ML 100 ML INFUS..BTL 70 ML IV (21:25)
[2025-04-28 00:34] VITALS: BP 123/69; PULSE 63; RESP 16; TEMP 36.7; O2SAT 96
[2025-04-28 00:35] VITALS: BP 123/69; PULSE 63; RESP 16; TEMP 36.7; O2SAT 96
[2025-04-29 12:23] LABS: Glucose, Whole Blood 106 mg/dL (60-115)
== END 2025-04-28 00:37 | disposition home or self-care (01) ==
PROVIDERS: Emergency Provider Emergency Medicine Emergency Medical Services; PCP Physician Assistant
DX: R53.1 Weakness (principal); F41.9 Anxiety disorder, unspecified; I10 Essential (primary) hypertension; E78.5 Hyperlipidemia, unspecified; R29.700 NIHSS score 0; Z79.82 Long term (current) use of aspirin; Z79.899 Other long term (current) drug therapy
CPT/HCPCS: 36415; 70450; 70496; 70498; 71045; 80048; 80076; 81001; 82947; 84484; 85025; 93005; 96360; 96361; 99284; 99285; Q9967

== ENCOUNTER → 2025-04-27 18:34 | Outpatient (BNV) | payer MEDICARE, SELFPAY | PROVIDERS: Emergency Provider Emergency Medicine Emergency Medical Services; PCP Physician Assistant; Visit Provider Nuclear Medicine | DX: R42 Dizziness and giddiness (principal); R07.9 Chest pain, unspecified | CPT/HCPCS: 70450; 70496; 70498; 71045 ==

== ENCOUNTER → 2025-04-27 18:36 | Outpatient (BNV) | payer MEDICARE, SELFPAY | PROVIDERS: Emergency Provider Emergency Medicine Emergency Medical Services; PCP Physician Assistant; Visit Provider Internal Medicine | DX: R94.31 Abnormal electrocardiogram [ECG] [EKG] (principal); R53.1 Weakness | CPT/HCPCS: 93010 ==

== ENCOUNTER 2025-09-01 11:34 | Outpatient (REF) | payer MEDICARE, SELFPAY | END 2025-09-01 11:35 | disposition home or self-care (01) | LOC: HO.MAMMO 11:34 | PROVIDERS: PCP Physician Assistant; Visit Provider Physician Assistant | DX: Z13.89 Encounter for screening for other disorder (principal) ==

== ENCOUNTER 2025-09-28 13:43 | Outpatient (AMB) | payer MEDICARE, SELFPAY ==
--- OUTSIDE RECORDS SUMMARY | 2024-08-11 03:30 | XMS_ITS ---
Author Organization [facility] Address [address] [place] [address] Care Team Providers Care Computer Systems Security Administrator Name Role Phone Chiki Wei Primary Care Provider Unavailab Abe Turner Jr REASON FOR VISIT screening Encounters Encounter Location Date Provider Diagnosis [facility] [address] [place], [place] [id number] 08/11/2024 Abe Capone Jr Colon cancer screening Z12.11 and Epigastric pain R10.13 Assessments Encounter Date Diagnosis (ICD Code) Assessment Notes Treatment Notes Treatment Clinical Notes Section Notes 08/11/2024 Colon cancer screening (ICD-10 - Z12.11) 08/11/2024 Epigastric pain (ICD-10 - R10.13) Plan Of Treatment No Information Progress Notes * ANTONINA LARSON MDOB:[birth year] (70 yo F)Acc No.[id number]:08/11/2024 EGD and COL/MAC Patient: S ONEYDA ANTONINA Armas Provider: Ranjith Capone MD :1955 A ge:69 Y S ex:Female Date:08/11/2024 Address:[address] [place] [address] [id number] Pcp:Chiki Wei Subjective: * Chief Complaints: * 1 . Screening. * Medical History: Objective: * Vitals: Assessment: * Assessment: 1. C olon cancer screening - Z12.11 (Primary) 2 . E pigastric pain - R10.13? Plan: * Treatment: * Procedure Codes: G 0105 COLOREC CANCR SCR; COLNSCPY HI RISK, 15530 COLONOSCOPY AND BIOPSY, 0529F INTRVL 3+YRS PTS CLNSCP DOCD, 0528F RCMND FLW-UP 10 YRS DOCD, Modifiers: 1P , 59599 UPPER GI ENDOSCOPY, BIOPSY * * The named appointment provid er may or may not be the originator of this progress note, and it is not deemed complete until electronically signed by the appointment provider. Sign off status: Pending * Provider: Ranjith Capone MD Date: 0 08/11/2024 Generated for Fam carlos/Jaimee/Nadinesmitting on: 1 11/28/2024 04:52 PM EST
--- NOTE | 2025-09-28 13:47 | A.OFFPC_ITS ---
Vital Signs 09/28/25 13:49 Height 5 ft 6 in Weight 209 lb 2 oz BMI 33.7 BP 130/78 Blood Pressure Location Lt brachial Position Sitting Pulse 89 Pulse Source Pulse Oximeter Temp 97.3 F Temp Source Temporal Artery Scan Pulse Oximetry (%) 97 Oxygen Delivery Method Room Air Intake Visit Reasons: follow up Intake Note: Patient is here to follow up on HLD, FRANCISCO, HTN. Manager Academic Required: No Rivet Sorter: Not Required per policy Accompanied by: Self / Same As Patient Allergies amoxicillin (AMOXICILLIN) Allergy (Severe, Verified 09/28/25 14:02) severe vomiting pumpkin Allergy (Intermediate, Verified 09/28/25 14:02) Difficulty Breathing adhesive tape Adverse Reaction (Intermediate, Verified 09/28/25 14:02) rash hydrocodone Adverse Reaction (Intermediate, Verified 09/28/25 14:02) dizziness, disorientation vicodin Allergy (Intermediate, Uncoded 09/28/25 14:02) Dizziness Medication List - Last Reconciled 09/28/25 by Chiki Wei PA-C alprazolam 0.25 mg PO BID 4 days aspirin 81 mg PO DAILY cholecalciferol (vitamin D3) (Vitamin D3) 125 mcg PO DAILY cyanocobalamin (vitamin B-12) (Vitamin B-12) 2,500 mcg sublingual QAM flaxseed oil 3,000 mg PO DAILY furosemide (Lasix) 20 mg PO DAILY PRN 30 days magnesium 250 mg PO DAILY paroxetine HCl 40 mg PO BEDTIME walker Folding Front wheeled walker Tobacco use date assessed: 09/28/25 Fall risk assessment: No Falls in past year Last assessed Fall Risk: 09/28/25 Dental Screening Dental Screen Date: 09/28/25 Did you have a dental visit in the last 12 months?: Yes Did you have a dental problem in the last 6 months where you did not have access to dental care?: No Was dental information given to patient?: Patient has dentist HPI follow up HPI Details Patient is a 70-year-old female here today for a follow up visit Patient has a past medical history significant for generalized anxiety disorder, chronic abdominal bloating and pain, history of pancreatitis, GERD Concern--> The patient reports sharp pains in the upper stomach, bloating, and reflux symptoms that sometimes cause a sensation of stomach contents backing into her chest. She has a known hiatal hernia. She reports that her abdomen is sometimes tender to the touch and that she has experienced nausea. Previous endoscopies have reportedly found no abnormalities. An abdominal CT scan was performed last summer during an emergency room visit. For symptom relief, the patient uses peppermint mints and gum, as well as Maalox for severe symptoms. She has not previously tried medications like omeprazole. She would like the ultrasound of the abdomen to evaluate for any intra- abdominal pathology. She also reports having fungal infection underneath both breasts that she has been using a fungal powder 4. He mentioned she is not able to get a mammogram due to having this infection. She is interested in some kind of cream to help resolve this rash. Class 1 Obesity: having alot of trouble loosing weight, she reports exercising on a daily basis and following a regimented low fat diet with a lot of vegetables. .. Hypertension: Had a history of hypertension though is able to get off blood pressure medications using diet and exercise. Blood pressure today in office acceptable. .. Borderline high cholesterol: Most recent lipid panel showing borderline high cholesterol in slight elevation in her triglycerides. Continues to work on diet modifications for this. Laboratory Tests 07/23/24 10:13 RBC 4.87 Hgb 12.3 Creatinine 0.69 Cholesterol 208 H LDL Cholesterol, C alc 121 H [facility] Medical History (Updated 09/29/25 @ 07:37 by Chiki Wei PA-C) Hyperlipidemia FRANCISCO (obstructive sleep apnea) Lumbar herniated disc Hypoglycemia GERD (gastroesophageal reflux disease) COVID-19 vaccine series completed Macular degeneration Fluid retention in legs Pancreatitis Renal calculi Osteoarthritis Basal cell carcinoma Hiatal hernia Scoliosis Anxiety Depression Hypertension Surgical History History of right hip replacement (2020) History of esophagogastroduodenoscopy (EGD) H/O colonoscopy History of nasal septoplasty History of total left knee replacement History of section History of cholecystectomy History of hysterectomy Family History Father Cancer Mother Rheumatoid arthritis Daughter Crohn's colitis Social History Housing: House Are you a primary career law clerk to a significant other at home: No Do you presently have visiting nurse or other home services: No Comment: advised to remove before surgery Patient Tobacco Use Status: Former Tobacco user Tobacco use type: Cigarette e-Cigarette/Vaping Use: Never Used Second Hand Smoke Exposure: Yes Advance Directives Date on File: 06/11/14 service: No 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 1. Little interest or pleasure in doing things: not at all 2. Feeling down, depressed, or hopeless: not at all 3. Trouble falling or staying asleep, or sleeping too much: not at all 4. Feeling tired or having little energy: not at all 5. Poor appetite or overeating: not at all 6. Feeling bad about yourself - or that you are a failure or have let yourself or your family down: not at all 7. Trouble concentrating on things, such as reading the newspaper or watching television: not at all 8. Moving or speaking so slowly that other people could have noticed. Or the opposite - being so fidgety or restless that you have been moving around a lot more than usual: not at all 9. Thoughts that you would be better off or of hurting yourself in some way: not at all Total score: 0 Depression Screening Interpretation: Negative Depression Screening Done: Yes 35968 - PHQ-9 Billing: Yes Source: Developed by Drs. Gaurang Curiel, Renetta Dailey, Felix Johnson and colleagues, with an educational markel from [employer]. Thrive Questionnaire Date Thrive assessed: 09/28/25 I am a: Patient What is your living situation today?: I have a steady place to live Within the past 12 months, did the food you bought not last and you didn't have the money to get more?: Never true Within the past 12 months, did you worry whether your food would run out before you got money to buy more?: Never true Do you have trouble paying for medicines?: No Do you have trouble getting transportation to medical appointments?: No Do you have trouble paying your heating and electricity bill?: No Do you have trouble taking care of your child, family member or friend?: No Do you have trouble with day-to-day activities such as bathing, preparing meals, shopping, managing finances, etc.?: No Are you currently unemployed and looking for a job?: No Are you interested in more education?: No Please select the resources that you would like help with: None Currently or been in a relationship where the following occur: No concerns reported THRIVE Score: 0 AUDIT C Alcohol Use Questionnaire (AUDIT-C) 1. How often do you have a drink containing alcohol?: Never Total Score: 0 RUDY-7 AMB Questionnaire RUDY-7 Date RUDY - 7 assessed: 09/28/25 Feeling nervous, anxious, or on edge: 0 = Not at all Not being able to stop or control worryin = Not at all Worrying too much about different things: 0 = Not at all Trouble relaxin = Not at all Being so restless that it is hard to sit still: 0 = Not at all Becoming easily annoyed or irritable: 0 = Not at all Feeling afraid as if something awful might happen: 0 = Not at all Total RUDY-7 score (0-4 normal; 5-9 mild; 10-14 moderate; 15-21 severe): 0 Source: Developed by Drs. Gaurang Curiel, Renetta Dailey, Felix Johnson and colleagues, with an educational markel from [employer]. RUDY-7 Assessment Billing RUDY-7 Assessment Tool: RUDY-7 Assessment 47431 Review of Systems Const Denies headache(s) Eyes Denies loss of vision ENT Denies vertigo, Denies dizziness, Denies headache(s) and Denies sore throat Card Denies chest pain, Denies leg edema and Denies lightheadedness Resp Denies cough, Denies hemoptysis and Denies wheezing GI Denies abdominal pain, Denies melena, Denies constipation, Denies diarrhea and Denies vomiting Denies urinary frequency, Denies dysuria and Denies urinary urgency Musc Denies arthralgias, Denies joint swelling, Denies numbness and Denies tingling Neuro Denies Abnormal speech present, Denies behavioral changes, Denies vertigo, Denies dizziness, Denies headache(s), Denies loss of vision, Denies memory loss, Denies numbness and Denies tingling Psych Denies anxiety, Denies behavioral changes, Denies depression, Denies memory loss and Denies panic attacks Roshan/Lymph Denies easy bleeding and Denies easy bruising Aller/Immun Denies wheezing Physical exam (Primary Care) Vital Signs: Last Vital Signs Temp 97.3 F 09/28/25 13:49 Pulse 89 09/28/25 13:49 BP 130/78 09/28/25 13:49 Pulse Ox 97 09/28/25 13:49 Oxygen Delivery Method Room Air 09/28/25 13:49 BMI result Body Mass Index 33.7 Tobacco/Smoking Status: Tobacco use Status Tobacco use date assessed 09/28/25 09/28/25 13:53 Patient Tobacco Use Status Former Tobacco user 09/28/25 13:53 Tobacco use type Cigarette 09/28/25 13:53 e-Cigarette/Vaping Use Never Used 09/28/25 13:53 PHQ-9: PHQ-9 Score PHQ-9: Total score 0 09/28/25 14:44 Depression Screening Interpretation: Negative Thrive Assessment: Date of Thrive Assessment Date Thrive assessed 09/28/25 09/28/25 13:53 Currently or been in a relationship where the following occur: No concerns reported Const General: healthy appearing, no acute distress, alert and awake Nutritional Appearance: well nourished Orientation/consciousness: oriented to person, oriented to place and oriented to time HENMT Ears: TM's normal bilaterally General nose exam: Normal nasal mucous membranes and turbinates present Eyes Conjunctivae: conjunctivae normal Sclerae: sclerae normal Pupils: Equal, round and reactive pupils present Neck Neck: Yes no lymphadenopathy and Yes no JVD Thyroid: Thyroid normal Carotids: no bruits Resp Effort & Inspection: normal respiratory effort and not tachypneic Auscultation: no crackles, no rales, no rhonchi and no wheezes Cardio Rate: regular rate Rhythm: regular rhythm Heart sounds: no murmurs and normal S1 and S2 GI Palpation (GI): Soft to palpation, nontender, no hepatomegaly and no splenomegaly Auscultation: normal bowel sounds Skin General skin exam: no rashes or lesions noted and dry skin Neuro General: oriented to person, oriented to place and oriented to time Cranial nerves: Yes Equal, round and reactive pupils present Speech: No Abnormal speech present Gait exam (Neuro): Normal gait present Motor exam (neuro): no tremor noted Extrem Right upper extremity: full ROM Left upper extremity: full ROM Right lower extremity: full ROM; no edema Left lower extremity: full ROM; no edema Psych Mental Status: mental status grossly normal Speech and movement: Normal speech and movement present Affect: normal affect Attitude: cooperative Thought process: Normal thought process present Coding Level of Care Code Est Pt Level 4 (71658) Diagnoses Abdominal distension R14.0 Postmenopausal Z78.0 Tinea unguium B35.1 Primary hypertension I10 Hypertension type: primary hypertension Pure hypercholesterolemia E78.00 Hyperlipidemia type: pure hypercholesterolemia Additional Codes RUDY-7 Assessment Billing - RUDY-7 Assessment Tool: RUDY-7 Assessment 38824 ([id number]) PHQ-9 - 03647 - PHQ-9 Billing: Yes ([id number]) Assessment & Plan Assessment & Plan (1) Abdominal distension: Code(s): R14.0 - Abdominal distension (gaseous) Category: Medical Plan: Patient continues to suffer with chronic abdominal bloating and distention. Has tried all kinds of GI medications without much significant relief.. She has had history of chronic pancreatitis. Patient interested in abdominal ultrasound evaluate for an anterior abdominal pathology. For management of reflux symptoms, the patient was advised that mints can potentially worsen the condition. It was suggested that she could try an antacid medication such as Prilosec (omeprazole) in the morning. (2) Postmenopausal: Code(s): Z78.0 - Asymptomatic menopausal state Category: Medical Plan: Patient willing to do a bone density. (3) Tinea unguium: Code(s): B35.1 - Tinea unguium Category: Medical Plan: As per HPI patient has a chronic tinea infection under both breasts, will supply patient with a topical antifungal (4) Hypertension: Comment: under control Code(s): I10 - Essential (primary) hypertension Category: Medical Qualifiers: Hypertension type: primary hypertension Qualified Code(s): I10 - Essential (primary) hypertension Plan: Patient not on any antihypertensive medication, has been able to manage her blood pressure with dietary and lifestyle modifications. Patient's blood pressure acceptable. Blood pressure is to remain below 130/90 (5) Hyperlipidemia: Code(s): E78.5 - Hyperlipidemia, unspecified Category: Medical Qualifiers: Hyperlipidemia type: pure hypercholesterolemia Qualified Code(s): E78.00 - Pure hypercholesterolemia, unspecified Plan: Patient's most recent lipid panel showing borderline high total cholesterol. She continues to work on lifestyle and dietary modification. goal total cholesterol to be below 200, goal LDL to be below 130 Orders: Orders Lipid Panel 09/28/25 E78.5 - Hyperlipidemia, unspecified Complete Blood Count no Diff 09/28/25 E78.5 - Hyperlipidemia, unspecified XR DEXA axial skeleton 09/28/25 Z78.0 - Asymptomatic menopausal state Comprehensive [place]. Panel Fast 09/28/25 E78.5 - Hyperlipidemia, unspecified Microalbumin, Random (w Creat) 09/28/25 I10 - Essential (primary) hypertension US abdomen complete 09/28/25 R14.0 - Abdominal distension (gaseous) Medications: New clotrimazole 1% 1 appl topical BID 45 grams 1RF 30 days B35.1 - Tinea unguium Refilled alprazolam 0.25 mg PO BID 8 tabs 0RF 4 days F41.1 - Generalized anxiety disorder
[2025-09-28 13:49] VITALS: BP 130/78; PULSE 89; TEMP 36.3; O2SAT 97; BMI 33.7
--- OUTSIDE RECORDS SUMMARY | 2025-09-28 16:52 | XMS_ITS | Encounter Summary ---
Author Organization [facility] Address [address] [place] [address] Phone Care Team Providers Care Endodontist Name Role Phone David Flores MD Primary Care Provider [phone] Thiago Sandoval MD Unavailable [phone] David Flores MD Unavailable [phone] Kristina Li MD Unavailable [phone] David Flores MD Unavailable [phone] Chiki Wei Primary Care Provider + David Flores MD Unavailable [phone] David Flores MD Unavailable [phone] David Flores MD Unavailable [phone] David Flores MD Unavailable [phone] David Flores MD Unavailable [phone] David Flores MD Unavailable [phone] Encounter Details Date Type Department Care Team (Late st Contact Info) Description 06/08/2021 Procedure Pass [facility] Endoscopy Admitting Dept Virtual Department [address] [place] [address] Social History Tobacco Use Types Packs/Day Years Used Date Smoking Tobacco: Former Cigarettes 1 17 1 970 - 1986 Smokeless Tobacco: Never Alcohol Use Standard Drinks/Week Comments Never 0 (1 standard drink = 0.6 oz pur e alcohol) Comments No Sex and Gender Information Value Date Recorded Sex Assigned at Not on file Legal Sex Female 3:45 PM EDT Gender Identity Not on file Sexual Orientation Not on file documented as of this encounter Plan of Treatment Not on file documented as of this encounter Visit Diagnoses Not on filedocumented in this encounter Additional Health Concerns Infection Onset Date Last Indicated Resolved Time CoV-Presumed 05/20/2022 05/20/2022 06/10/2022 1:21 AM EDT Assessment Noted Time PHQ-9 Depression Total Score: 12 021 2:02 PM EDT PHQ-2 Depression Total Score: 6 03/14/20 21 2:02 PM EDT documented as of this encounter Care Teams Endodontist Relationship Specialty Start Date End Date David Flores MD [address] [place] [address] PCP - General Internal Medicine 03/30/19 09/22/23 Chiki Wei PA [address] [place] [phone] PCP - General Physician Embedded Software Developer 06/18/24 Thiago Sandoval MD [address] [place] [phone] Cardiology 01/14/20 David Flores MD [address] [place] [phone] Insurance Assigned Provider 03/02/20 12/02/21 Kristina Li MD [address] [place] [id number] Orthopedic Surgery 08/28/21 David Flores MD [address] [place] [address] Insurance Assigned Provider 02/29/24 02/28/25 David Flores MD [address] [place] [address] Insurance Assigned Provider 02/29/24 04/03/25 David Flores MD [address] [place] [address] Insurance Assigned Provider 02/29/24 05/01/25 David Flores MD [address] [place] [address] Insurance Assigned Provider 02/29/24 06/05/25 David Flores MD [address] [place] [address] Insurance Assigned Provider 02/29/24 07/03/25 David Flores MD [address] [place] [address] Insurance Assigned Provider 02/29/24 07/31/25 David Flores MD [address] [place] [address] Insurance Assigned Provider 02/29/24 09/04/25 documented as of this encounter Additional Source Comments The information contained in this document represents components of the legal health record. It is not the complete legal health record.[facility]
--- OUTSIDE RECORDS SUMMARY | 2025-09-28 16:52 | XMS_ITS | Patient Health Record ---
Author Organization [facility] Address [address] [place] [address] Care Team Providers Care Chef Head Name Role Phone Chiki Wei Primary Care Provider Unavailab Abe Turner Jr Unavailable Allergies Allergen (clinical drug ingredient) Drug/Non Drug Allergy documented on EMR Reaction Allergy Type Onset Date Status amoxicillin Amoxicillin Unknown Drug Allergy Act kalyan Vicodin Unknown Drug Allergy Active Pumpkin Flavor Unknown Drug Allergy Ac tive Reason For Referral No Information Medications Medication SIG (Take, Route, Frequency, Duration) Notes Start Date End Date Status Vitamin B-12 1000 MCG as directed Orally Active Furosemide 20 MG Oral; Duration: 30 Active PARoxetine HCl 40 MG TAKE 1 TABLET BY MOUTH AT BEDTIME Oral; Duration: 90 F411,Unavailable Active MiraLax (colon prep) 17 GM/SCOOP mixed with Gatorade or Crystal Light Orally begin at 5:00 p.m. the day before the procedure; Duration: 1 day 05/13/2024 Active Apple Cider Vinegar 500 MG as directed Orally Active Vitamin D 400 UNIT 2 capsules Orally Once a day; Duration: 30 day(s) Active Immunizations Vaccine Route Administration Date Status Comme nts Influenza Unknown 09/10/2023 Administered Social History Tobacco Use: Social History Observation Description Date Details (start date - stop date) Former Smoker NA - NA Tobacco Use/Smoking Question Answer Notes Patient is a former smoker Alcohol Screen Question Answer Notes Did you have a drink containing alcohol in the p ast year? No Points 0 Interpretation Negative Problems Problem Type SNOMED Code ICD Code Onset Dates Problem Status W/U Status Risk Notes Problem Colon cancer screening (703236374) Colon cancer screening (Z12.11) Active confirmed Problem Epigastric pain (08044618) Epigastric pain (R10.13) Active confirmed Problem Flatulence, eructation and gas pain (467719612) Abdominal distention (R14.0) Active confirmed Plan Of Treatment Future Test Test Name Order Date COLONOSCOPY 05/13/2024 Insurance Providers Payer Name Payer Address Payer Phone Subscriber Number Group Number Insured Name Patient Relationship to Insured Coverage Start Date Coverage End Date MEDICARE OF [place] [address] [place]AK[place] [phone] [id number] ANTONINA LARSON Self - patient is the insured [facility] [employer] [address] [place] [address] [id number] ANTONINA LARSON Self - patient is the insured Medical (General) History Medical History History ICD Code Anxiety/depression Hyperlipidemia Osteoarthritis Fluid retention FRANCISCO Pancreatitis Colon polyps Surgical History Surgery Date(Month/Year) section 1981,1984 Open cholecystectomy 1986 Hysterectomy 2003 Right hip replacement 2013 Left knee replacement 2020 Hospitalization History Reason Date(Month/Year) acute pancreatitis
--- OUTSIDE RECORDS SUMMARY | 2025-09-28 16:52 | XMS_ITS | Encounter Summary ---
Author Organization [facility] Address [address] [place] [address] Phone Care Team Providers Care Heddler Tier Name Role Phone David Flores MD Primary Care Provider Thiago Sandoval MD Unavailable [phone] Kristina Li MD Unavailable David Flores MD Unavailable Chiki Wei Primary Care Provider + David Flores MD Unavailable [phone] David Flores MD Unavailable [phone] David Flores MD Unavailable [phone] David Flores MD Unavailable [phone] David Flores MD Unavailable [phone] David Flores MD Unavailable [phone] Encounter Details Date Type Department Care Team (Late st Contact Info) Description 12/25/2022 Procedure Pass [facility], Ct Scan - [address] [id number] Social History Tobacco Use Types Packs/Day Years Used Date Smoking Tobacco: Former Cigarettes 1 17 1 970 - 1986 Smokeless Tobacco: Never Alcohol Use Standard Drinks/Week Comments Never 0 (1 standard drink = 0.6 oz pur e alcohol) Intimate Partner Violence Answer Date R ecorded Denied Basic Needs Not on file 12/25/2022 In the past 12 months have y ou been in a relationship with a person who hurts, threatens, or tries to control you? No 12/25/2022 Worried food would run out Not on file 12/25 In the past 12 months have y ou been in a relationship with a person who hurts, threatens, or tries to control you? No 12/25/2022 Comments No Sex and Gender Information Value Date Recorded Sex Assigned at Not on file Legal Sex Female 3:45 PM EDT Gender Identity Not on file Sexual Orientation Not on file documented as of this encounter Plan of Treatment Not on file documented as of this encounter Visit Diagnoses Not on filedocumented in this encounter Additional Health Concerns Assessment Noted Time PHQ-9 Depression Total Score: 12 021 2:02 PM EDT PHQ-2 Depression Total Score: 1 12/25/19 23 10:57 AM EST documented as of this encounter Care Teams Heddler Tier Relationship Specialty Start Date End Date David Flores MD [address] [place] [address] [email or web address] PCP - General Internal Medicine 03/30/19 09/22/23 Chiki Wei PA [address] [place] [phone] PCP - General Physician Carrier Driver 06/18/24 Thiago Sandoval MD [address] [place] [address] Cardiology 01/14/20 Kristina Li MD [address] [place] [phone] Orthopedic Surgery 08/28/21 David Flores MD [address] [place] [address] Insurance Assigned Provider 02/29/24 02/28/25 David Flores MD [address] [place] [address] Insurance Assigned Provider 02/29/24 04/03/25 David Flores MD [address] [place] [address] Insurance Assigned Provider 02/29/24 05/01/25 David Flores MD [address] [place] [address] Insurance Assigned Provider 02/29/24 06/05/25 David Flores MD [address] [place] [address] Insurance Assigned Provider 02/29/24 07/03/25 David Flores MD [address] [place] [address] Insurance Assigned Provider 02/29/24 07/31/25 David Flores MD [address] [place] [address] Insurance Assigned Provider 02/29/24 09/04/25 documented as of this encounter Additional Source Comments The information contained in this document represents components of the legal health record. It is not the complete legal health record.[facility]
--- OUTSIDE RECORDS SUMMARY | 2025-09-28 16:52 | XMS_ITS | Encounter Summary ---
Author Organization [facility] Address [address] [place] [address] Phone Care Team Providers Care Closet Organizer Name Role Phone David Flores MD Primary Care Provider [phone] Thiago Sandoval MD Unavailable David Flores MD Unavailable Kristina Li MD Unavailable [phone] David Flores MD Unavailable Chiki Wei Primary Care Provider + David Flores MD Unavailable David Flores MD Unavailable David Flores MD Unavailable David Flores MD Unavailable David Flores MD Unavailable David Flores MD Unavailable Encounter Details Date Type Department Care Team (Latest Contact Info) Description 08/23/2021 Transcribe Orders Virtual Department [address] [place] [address] Renetta Kate NP [address] [place] [address] Abdominal pain, unspecified abdominal location (Primary Dx); History of fatty infiltration of liver Social History Tobacco Use Types Packs/Day Years [...] on file documented as of this encounter Results * US ABDOMEN LIMITED SINGLE ORGAN (09/07/2021 10:31 AM EDT) Anatomical Region Laterality Modality Abdomen Ultrasound 09/07/2021 10:3 3 AM EDT Impressions 09/07/2021 10:36 AM EDT Liver echotexture is mildly coarse. Liver otherwise has a normal sonographic appearance. Narrative 09/07/2021 10:36 AM EDT HISTORY: Pain, hepatic steatosis, evaluate liver. COMPARISON: CT abdomen 08/08/2021. FINDINGS: A dedicated study of the liver is performed. Liver echogenicity is within normal limits. Liver echotexture mildly coarse. Liver margins appear smooth. Liver within normal limits in size. No evidence of hepatic masses. Procedure Note Luis Felipe Benavides MD - 09/07/2021 HISTORY: Pain, hepatic steatosis, evaluate liver. COMPARISON: CT abdomen 08/08/2021. FINDINGS: A dedicated study of the liver is performed. Liver echogenicity is within normal limits. Liver echotexture mildlycoarse. Liver margins appear smooth. Liver within normal limits in size.No evidence of hepatic masses. IMPRESSION: Liver echotexture is mildly coarse. Liver otherwise has a normalsonographic appearance. Renetta Kate NP IMG US ABDOMEN Final Res ult documented in this encounter Visit Diagnoses Diagnosis Abdominal pain, unspecified abdominal location- Primary History of fatty infiltration of liver Abdominal pain, unspecified abdominal location History of fatty infiltration of liver documented in this encounter Additional Health Concerns Infection Onset Date Last Indicated Resolved Time CoV-Presumed 05/20/2022 05/20/2022 06/10/2022 1:21 AM EDT Assessment Noted Time PHQ-9 Depression Total Score: 12 021 2:02 PM EDT PHQ-2 Depression Total Score: 6 03/14/20 21 2:02 PM EDT documented as of this encounter Care Teams Closet Organizer Relationship Specialty Start Date End Date David Flores MD [address] [place] [address] [email or web address] PCP - General Internal Medicine 03/30/19 09/22/23 Chiki Wei PA [address] [place] [address] PCP - General Physician Tax Services Professional 06/18/24 Thiago Sandoval MD [address] [place] [address] Cardiology 01/14/20 David Flores MD [address] [place] [address] [email or web address] Insurance Assigned Provider 03/02/20 12/02/21 InstrumKristina MD [address] [place] [address] Orthopedic Surgery 08/28/21 David Flores MD [address] [place] [address] [email or web address] Insurance Assigned Provider 02/29/24 02/28/25 David Flores MD [address] [place] [address] Insurance Assigned Provider 02/29/24 04/03/25 David Flores MD [address] [place] [address] Insurance Assigned Provider 02/29/24 05/01/25 David Flores MD [address] [place] [address] Insurance Assigned Provider 02/29/24 06/05/25 David Flores MD [address] [place] [address] Insurance Assigned Provider 02/29/24 07/03/25 David Flores MD [address] [place] [address] Insurance Assigned Provider 02/29/24 07/31/25 David Flores MD [address] [place] [address] Insurance Assigned Provider 02/29/24 09/04/25 documented as of this encounter Additional Source Comments The information contained in this document represents components of the legal health record. It is not the complete legal health record.[facility]
--- OUTSIDE RECORDS SUMMARY | 2025-09-28 16:52 | XMS_ITS | Clinical Summary ---
Author Organization [facility] Address [address] [place] [address] Phone Care Team Providers Care Lead Cytogenetic Technologist Name Role Phone Thiago Sandoval MD Unavailable [phone] InstrKristina kern MD Unavailable [phone] Chiki Wei Primary Care Provider + Allergies Active Allergy Reactions Criticality Noted Date Comments Adhesive Rash Low 09/04/2021 Amoxicillin Nausea and/or Vomiting High 06/23/2019 Severe vomiting Pumpkin Shortness Of Breath High 06/23/2019 Hydrocodone-Acetaminoph en Dizziness Medium 06/23/2019 headache Medications aspirin 81 MG EC tablet Take 81 mg by mouth daily. Active cholecalciferol (VITAMIN D3) 5,000 unit capsule Take 5,000 Units by mouth daily. Active glucosamine/cho ndr chavarria A sod (OSTEO BI-FLEX ORAL) Take 1 tablet by mouth daily. Active FLAXSEED ORAL Take 4,000 mg by mouth daily. Active vitamins A,C,E-zinc-nando er (PRESERVISION AREDS) [id number] keoh-kf-hwnh Cap Take 2 capsules by mouth every evening. Active ALPRAZolam (XANAX) 0.25 MG tabletIndicatio ns:Anxiety state TAKE 1 TABLET(0.25 MG) BY MOUTH DAILY NEEDED 30 tablet 12/25/2022 Active PARoxetine (PAXIL) 40 MG tabletIndicatio ns:Anxiety state Take 1 tablet (40 mg total) by mouth every evening. 90 tablet 3 12/25/2022 Active furosemide (LASIX) 20 MG tabletIndicatio ns:Bilateral leg edema TAKE 1 TABLET(20 MG) BY MOUTH DAILY 90 tablet 3 01/09/2023 Active triamcinolone acetonide 0.1 % ointmentIndicat ions:Vulvar irritation Apply a pea sized amount daily as needed 30 g 06/26/2024 Active Active Problems Problem Noted Date Diagnosed Date Class 1 obesity without seri ous comorbidity with body mass index (BMI) of 32.0 to 32.9 in adult 05/07/2023 Assessment & Plan (05/07/2023 1:06 PM EDT): The patient had concerned that she may be hypothyroid but her TSH free T4 in the reference range. Based on lab work electrolytes and glucose levels in the reference range Houston syndrome is unlikely. She cannot use GLP-1 agonist because of history of pancreatitis. She has history of nephrolithiasis and Alzheimer's in the family does not want to use Qsymia which can be associated with kidney stones and memory loss. Lastly I suggested using Contrave and she is concerned because of persistent anxiety and depression that the medication may make things worse. However she states that she will consider using the medication and that she proceed and prescribe it. I told the patient that the Contrave is taking 1 pill for the first week but the second week is taken twice a day by the third week she will take 2 in the morning and 1 in the evening and by the fourth week she will be taking 2 tablets twice a day. Since the patient does not know if she wants to try the medication she does not want to make a follow-up appointment. But she may change her mind. I decided to add a cortisol level that needs to be done fasting she has dorsal fat pads but no supraclavicular fullness or proximal muscle weakness. Under that she must do the Cortisol fasting. Mixed hyperlipidemia 12/25/2022 Primary osteoarthritis involving multiple joints 12/25/2022 Fatty liver 11/30/2019 Vitamin D deficiency Resolved Problems Problem Noted Date Diagnosed Date Resolved Date Acute upper respiratory infection 11/30/2019 09/04/2021 Assessment & Plan (11/30/2019 12:56 PM EST): Upper respiratory infection in the state of recovery, assured patient no pneumonia, no bacterial illness, will mend on its own without intervention. No antibiotics indicated, zinc lozenges, rest and vitamin C thousand milligrams daily recommended. Immunizations Immunization Administration Dates Next Due COVID-19 (Pre-09/16) Pfizer Vaccine, mRNA, PF 02/22/2021,02/01/2021 INFLUENZA, SPLIT VIRUS, TRIVALENT PF 07/29/2020, 08/16/2017,08/09/2015 Influenza High-Dose Quadriva lent Preservative Free IM 09/17/2022,09/04/2021 Influenza High-Dose Trivalen t Preservative Free IM 09/10/2019 Influenza Quadrivalent Preservative Free IM 08/25 Pneumococcal conjugate PCV13 10/19/2015 Pneumococcal conjugate PCV20 09/17/2022 Pneumococcal polysaccharide PPSV23 09/04/2021 Tdap 10/11/2015 Zoster unspecified formulation 10/13/2015 Family History Medical History Relation Comments Acute myelogenous leukemia Father Alzheimer's disease Maternal Aunt 1 Alzheimer's disease Maternal Aunt 2 Alzheimer's disease Maternal Aunt 3 Alzheimer's disease Mother Dementia Mother Heart disease Mother Hypertension Mother Relation Status Comments Brother 1 Alive Brother 2 Alive Father (Age 79) Maternal Aunt 1 Maternal Aunt 2 Maternal Aunt 3 Mother (Age 87) Social History Tobacco Use Types Packs/Day Years Used Date Smoking Tobacco: Former Cigarettes 1 17 1 970 - 1987 Smokeless Tobacco: Never Tobacco Cessation:Counseling Given: Not Answered Alcohol Use Standard Drinks/Week Comments Never 0 (1 standard drink = 0.6 oz pur e alcohol) Education Answer Date Recorded Are you interested in more education? Not on roseanna e 03/22/2023 Are you concerned about learning? Not on file 03/22/2023 No 03/22/2023 No 03/22/2023 Digital Access Answer Date Recorded No 04/22/2023 No 04/22/2023 Reliable internet access at home? Not on file 04/22/2023 Device with a working camera? Not on file Intimate Partner Violence Answer Date R ecorded [...] on file Sexual Orientation Not on file Last Filed Vital Signs Vital Sign Reading Time Taken Comments Blood Pressure 122/74 06/25/2024 11:22 AM EDT Pulse 86 07/01/2023 1:16 PM EDT Temperature 36.3 C (97.4 F) 07/01/2023 1:16 PM EDT Respiratory Rate 16 07/01/2023 1:16 PM EDT Oxygen Saturation 99% 07/01/2023 1:16 PM EDT Inhaled Oxygen Concentration - - Weight 94.8 kg (209 lb) 06/25/2024 11:22 AM EDT Height 166.4 cm (5' 5.5 ) 06/25/2024 11:22 AM ED T Body Mass Index 34.25 06/25/2024 11:22 AM EDT Plan of Treatment Health Maintenance Due Date Last Done Comments SMOKING Hx and SMOKELESS TOBACCO SCREENING 1966 COLOGUARD 1998 FIT TEST 1998 FOBT 1998 SIGMOIDOSCOPY 1998 VIRTUAL COLONOSCOPY 1998 ZOSTER VACCINES (1 of 2) 2003 10/13/2015 DEPRESSION SCREENING 12/25/2023 12/25/2022, 03/14/20 21 MAMMOGRAM 05/15/2025 05/15/2023, 02/24, 03/14/2022, Additional history exists INFLUENZA VACCINE (#1) 2025 , 08/20/2023, 09/17/2022, Additional history exists COVID-19 VACCINE ( season) 2025 09/03/2022, 12/20/2021, 02/22/2021, Additional history exists Adult Td,Tdap Booster 10/11/2025 10/11/2015, 010 RSV VACCINE (1 - 1-dose 75+ series) 2028 LIPID PANEL 07/23/2029 07/23/2024, 12/26, 01/04/2023, Additional history exists COLONOSCOPY 06/08/2031 06/08/2021, 04/, 03/24/2015, Additional history exists COLORECTAL CANCER SCREENING 06/08/2031 HEPATITIS C SCREENING Completed 10/19/2019, 019 PNEUMOCOCCAL VACCINES (50+ years) Completed 09/17/2022, 09/04/2021, 10/19/2015 OSTEOPOROSIS SCREENING INITIAL (ONE-TIME) Completed 12/25/2022 HEPATITIS A VACCINES Aged Out No long er eligible based on patient's age to complete this topic HIB VACCINES Aged Out No longer eligi ble based on patient's age to complete this topic MENINGOCOCCAL VACCINES (ACWY) Aged Out No longer eligible based on patient's age to complete this topic MENINGOCOCCAL VACCINES (B) Aged Out N o longer eligible based on patient's age to complete this topic Medical Devices Implanted Type Area Seat Covers Trimmer Device Identifier Shelf Expiration Date Model / Serial / Lot Prosthetic Joint Prosthetic Joint Left: Knee Procedures Procedure Name Priority Date/Time Associated Diagnosis Comments HM MAMMOGRAPHY Routine 05/15/2023 OUTSIDE HDL Routine 01/04/2023 BD DXA SCREENING Routine 12/25/2022 12:1 3 PM EST Postmenopausal estrogen deficiency ENDOSCOPY, COLON 06/08/2021 11:0 7 AM EDT HEPATITIS C ANTIBODY, QUALITATIVE Routine 10/19/2019 2:55 PM EST Need for hepatitis C screening test from Last 3 Months or Most Recently Relevant to Health Maintenance Results * HM MAMMOGRAPHY FOR RESULT ENTRY ONLY (05/15/2023) Deniz Flores MD HEALTH MAINTENANCE Edited Res ult - Final * Outside HDL (01/04/2023) HDL - External 51 40 - 80 mg/dL EXTERNAL NON-INTERFACED REF LAB Historical Provider LAB BLOOD ORDERABLES Kimmy frost Result EXTERNAL NON-INTERFACED REF LAB * ENDOSCOPY, COLON (06/08/2021 11:07 AM EDT) Narrative Transcriptions Kareem Hearn MD - 06/08/2021 11:07 AM EDT Patient Name: Maria Antonia Miranda Attending MD:: KAREEM HEARN MD, Procedure Date: 06/08/2021 11:07 AM Date of : 1955 Age: 65 Admit Type: Outpatient Gender: Female Room: [place] [address] Referring MD: DENIZ FLORES MD Exam Type: Colonoscopy Indications: High risk colon cancer surveillance: Personalhistory of colonic polyps Medications: Monitored Anesthesia Care Procedure: Informed consent was obtained from the patient after discussion of the indications, limitations, alternatives, benefits, and risks of the procedure. Risks specifically discussed include but are not limited to medication reactions, missed lesions, bleeding, perforation, or the need for emergentsurgery. Throughout the procedure, the patient's bloodpressure, pulse, end-tidal CO2, and oxygen saturations were monitored continuously. The Olympus adult variable colonoscope [id number] #6was introduced through the anus and advanced to thececum, identified by appendiceal orifice and ileocecalvalve. The colonoscopy was performed without difficulty.The patient tolerated the procedure well. The quality of the bowel preparation was excellent. The quality ofthe bowel preparation was evaluated using the BBPS(Beaver Bowel Preparation Scale) with scores of: Right Colon= 3, Transverse Colon = 3 and Left Colon = 3 (entire mucosa seen well with no residual staining, small fragments of stool or opaque liquid). The total BBPS score equals 9. Complications: No immediate complications. Estimated blood loss: Minimal. Findings: The perianal and digital rectal examinations were normal. Three sessile polyps were found in the ascendingcolon. The polyps were diminutive in size. These polypswere removed with a cold biopsy forceps. Resection and retrieval were complete. The exam was otherwise normal throughout theexamined colon. Impression: - Three diminutive polyps in the ascending colon, removed with a cold biopsy forceps. Resected and retrieved. Recommendation: - Discharge patient to home. - Await pathology results. KAREEM HEARN MD, 06/08/2021 11:35:27 AM This report has been signed electronically. Number of Addenda: 0 Note Initiated On: 06/08/2021 11:07 AM Procedure Code(s): --- Professional --- 10359, Colonoscopy, flexible; with biopsy, single or multiple --- Technical --- 80016, Colonoscopy, flexible; with biopsy, single or multiple Diagnosis Code(s): --- Professional --- Z86.010, Personal history of colonic polyps D12.2, Benign neoplasm of ascending colon --- Technical --- Z86.010, Personal history of colonic polyps D12.2, Benign neoplasm of ascending colon CPT copyright 2018 [employer]. All rights reserved. The codes documented in this report are preliminary and upon certified retinal angiographer reviewmay be revised to meet current compliance requirements. Procedure Date: 06/08/2021 11:07:24 AM [address] [place] [address] us Deniz Flores MD GI PROCEDURE ORDERABLES Final Result * Hepatitis C antibody, qualitative (10/19/2019 2:55 PM EST) HCV NON-REACTIV E NON-REACTI VE [facility] Blood 10/19/2019 2:55 PM EST 10/19/2019 3:00 PM EST us Deniz Flores MD LAB BLOOD BKR ORDERABLES Kimmy frost Result [address] [address] from Last 3 Months or Most Recently Relevant to Health Maintenance Insurance MEDICARE PART A & B [facility] MEDICARE SUPPLEMENT MEDICARE PART A & B MEDICARE SUPPLEMENT MEDICARE PART A & B MEDICARE SUPPLEMENT MEDICARE PART A & B Member Subscriber Plan / Payer (Ef fective 2018-Present) Name:Maria Antonia Miranda Member ID:[id number] Relation to Subscriber:Self Name:Maria Antonia Miranda Subscriber ID:[id number] Payer ID:[id number] Group ID:Not on file Type:Medicare Address: [employer] [address] MEDICARE SUPPLEMENT MEDICARE PART A & B [facility] MEDICARE SUPPLEMENT MEDICARE PART A & B MEDICARE SUPPLEMENT MEDICARE PART A & B [facility] MEDICARE SUPPLEMENT MEDICARE PART A & B [facility] MEDICARE SUPPLEMENT MEDICARE PART A & B [facility] MEDICARE SUPPLEMENT Care Teams Lead Cytogenetic Technologist Relationship Specialty Start Date End Date Chiki Wei PA [address] [facility] [place] [address] PCP - General Physician Scientific Writer 06/18/24 Thiago Sandoval MD [address] [place] [address] 1 [place] [address] Cardiology 01/14/20 InstrKristina kern MD [address] [place] [address] Dr HERBERT [address] [place] [address] [place] [address] Orthopedic Surgery 08/28/21 Additional Source Comments The information contained in this document represents components of the legal health record. It is not the complete legal health record.[facility]
--- OUTSIDE RECORDS SUMMARY | 2025-09-28 16:52 | XMS_ITS | Encounter Summary ---
Author Organization [facility] Address [address] [place] [address] Phone Care Team Providers Care Clinical Biostatistics Director Name Role Phone David Flores MD Primary Care Provider [phone] Thiago Sandoval MD Unavailable David Flores MD Unavailable [phone] Kristina Li MD Unavailable David Flores MD Unavailable Chiki Wei Primary Care Provider + David Flores MD Unavailable David Flores MD Unavailable [phone] David Flores MD Unavailable [phone] David Flores MD Unavailable [phone] David Flores MD Unavailable [phone] David Flores MD Unavailable [phone] Reason for Referral * MRI/CAT Scan - Closed Specialty Diagnoses / Procedures Referred By Iván rodney Referred To Contact Radiology Diagnoses Epigastric abdominal pain Procedures CT Abdomen Only (No Pelvis) Renetta Kate NP Phone: tel: fax: Referral ID Status Reason Start Date Expiration Date Visits Re quested Visits Authorized [id number] Closed 07/12/2021 07/12/2022 1 1 Encounter Details Date Type Department Care Team (Latest Contact Info) Description 07/12/2021 Transcribe Orders Virtual Department [address] [place] [address] Renetta Kate NP [address] [place] [address] Epigastric abdominal pain (Primary Dx) Social History Tobacco Use Types Packs/Day Years [...] documented as of this encounter Results * CT ABDOMEN WITH CONTRAST (08/08/2021 11:43 AM EDT) Anatomical Region Laterality Modality Abdomen, Abdominal Vasculature C omputed Tomography 08/08/2021 12:5 1 PM EDT Impressions 08/08/2021 1:01 PM EDT 1. No pancreatic pathology, acute process or other source of pain. 2. Incidental tiny renal cysts and angiomyolipoma. POS - [id number] Narrative 08/08/2021 1:01 PM EDT Oral and dual phase IV contrast; pancreas protocol. No comparison FINDINGS: No evidence of pancreatic mass or inflammation. Cholecystectomy. Mild extrahepatic and minimal intrahepatic biliary dilatation is very likely postcholecystectomy reservoir effect rather than obstruction; no identifiable choledocholithiasis. Liver, spleen and adrenals unremarkable. 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 No complex cysts or worrisome solid renal masses. No stones or hydronephrosis. No evidence of pyelonephritis. Visualized ureters unremarkable. Minimal diverticulosis in the visualized descending colon but no evidence of diverticulitis, inflammatory bowel disease, bowel mass or obstruction in the bowel included in the mid and upper abdomen. No adenopathy or ascites. No aortoiliac pathology other than very minor atherosclerotic calcification. Lung bases and pleural spaces clear. Diffuse disc narrowing throughout the lumbar spine but no acute or worrisome bony abnormalities. Procedure Note Bruce Arevalo MD - 08/08/2021 Oral and dual phase IV contrast; pancreas protocol. No comparison FINDINGS: No evidence of pancreatic mass or inflammation. Cholecystectomy. Mild extrahepatic and minimal intrahepatic biliarydilatation is very likely postcholecystectomy reservoir effect rather thanobstruction; no identifiable choledocholithiasis. Liver, spleen and adrenals unremarkable. 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 No complex cysts or worrisomesolid renal masses. No stones or hydronephrosis. No evidence ofpyelonephritis. Visualized ureters unremarkable. Minimal diverticulosis in the visualized descending colon but no evidenceof diverticulitis, inflammatory bowel disease, bowel mass or obstructionin the bowel included in the mid and upper abdomen. No adenopathy or ascites. No aortoiliac pathology other than very minor atheroscleroticcalcification. Lung bases and pleural spaces clear. Diffuse disc narrowing throughout the lumbar spine but no acute orworrisome bony abnormalities. IMPRESSION: 1. No pancreatic pathology, acute process or other source of pain. 2. Incidental tiny renal cysts and angiomyolipoma. POS - [id number] Renetta Kate NP IMG CT XSPECIALTY ORDERAB LES Final Result documented in this encounter Visit Diagnoses Diagnosis Epigastric abdominal pain- Primary Abdominal pain, epigastric Epigastric abdominal pain Abdominal pain, epigastric documented in this encounter Additional Health Concerns Infection Onset Date Last Indicated Resolved Time CoV-Presumed 05/20/2022 05/20/2022 06/10/2022 1:21 AM EDT Assessment Noted Time PHQ-9 Depression Total Score: 12 021 2:02 PM EDT PHQ-2 Depression Total Score: 6 03/14/20 2:02 PM EDT documented as of this encounter Care Teams Clinical Biostatistics Director Relationship Specialty Start Date End Date David Flores MD [address] [place] [address] [email or web address] PCP - General Internal Medicine 03/30/19 09/22/23 Chiki Wei PA [address] [place] [address] PCP - General Physician Roller Checker 06/18/24 Thiago Sandoval MD [address] [place] [address] Cardiology 01/14/20 David Flores MD [address] [place] [address] [email or web address] Insurance Assigned Provider 03/02/20 12/02/21 InstrKristina MD [address] [place] [address] Orthopedic Surgery 08/28/21 David Flores MD [address] [place] [address] Insurance Assigned Provider 02/29/24 02/28/25 David Flores MD [address] [place] [address] Insurance Assigned Provider 02/29/24 04/03/25 David Flores MD [address] [place] [address] [place] [address] Insurance Assigned Provider 02/29/24 05/01/25 David Flores MD [address] [place] [address] Insurance Assigned Provider 02/29/24 06/05/25 David Flores MD [address] [place] [address] Insurance Assigned Provider 02/29/24 07/03/25 David Flores MD [address] [place] [address] Insurance Assigned Provider 02/29/24 07/31/25 David Flores MD [address] [place] [address] Insurance Assigned Provider 02/29/24 09/04/25 documented as of this encounter Additional Source Comments The information contained in this document represents components of the legal health record. It is not the complete legal health record.[facility]
--- OUTSIDE RECORDS SUMMARY | 2025-09-28 16:52 | XMS_ITS | Encounter Summary ---
Author Organization [facility] Address [address] [place] [phone] Phone Care Team Providers Care Training And Development Officer Name Role Phone David Flores MD Primary Care Provider [phone] Thiago Sandoval MD Unavailable [phone] David Flores MD Unavailable [phone] Kristina Li MD Unavailable [phone] David Flores MD Unavailable [phone] Chiki Wei Primary Care Provider + David Flores MD Unavailable [phone] David Flores MD Unavailable [phone] David Flores MD Unavailable [phone] David Flores MD Unavailable [phone] David Flores MD Unavailable [phone] David Flores MD Unavailable [phone] Encounter Details Date Type Department Care Team (Late st Contact Info) Description 07/12/2021 Procedure Pass [facility], Ct Scan - [address] [address] Social History Tobacco Use Types Packs/Day Years [...] documented as of this encounter Care Teams Training And Development Officer Relationship Specialty Start Date End Date David Flores MD [address] [place] [address] PCP - General Internal Medicine 03/30/19 09/22/23 Chiki Wei PA [address] [place] [id number] PCP - General Physician Dye Reel Operator Helper 06/18/24 Thiago Sandoval MD [address] [place] [phone] Cardiology 01/14/20 David Flores MD [address] [place] [phone] Insurance Assigned Provider 03/02/20 12/02/21 Kristina Li MD [address] [place] [id number] Orthopedic Surgery 08/28/21 David Flores MD [address] [place] [address] [place] [address] Insurance Assigned Provider 02/29/24 02/28/25 David Flores MD [address] [place] [address] Insurance Assigned Provider 02/29/24 04/03/25 David Flores MD [address] [place] [address] Insurance Assigned Provider 02/29/24 05/01/25 David Flores MD [address] [place] [address] Insurance Assigned Provider 02/29/24 06/05/25 David Flores MD [address] [place] [address] Insurance Assigned Provider 02/29/24 07/03/25 David Flores MD [address] [place] [address] Insurance Assigned Provider 02/29/24 07/31/25 David Flores MD [address] [place] [address] Insurance Assigned Provider 02/29/24 09/04/25 documented as of this encounter Additional Source Comments The information contained in this document represents components of the legal health record. It is not the complete legal health record.[facility]
== END 2025-09-28 14:23 | disposition home or self-care (01) ==
LOC: HO.HMCH 13:44
PROVIDERS: PCP Physician Assistant; Visit Provider Physician Assistant
DX: R14.0 Abdominal distension (gaseous) (principal); Z78.0 Asymptomatic menopausal state; B35.1 Tinea unguium; I10 Essential (primary) hypertension; E78.00 Pure hypercholesterolemia, unspecified

== ENCOUNTER → 2025-09-28 13:43 | Outpatient (BNVA) | payer MEDICARE, SELFPAY | PROVIDERS: PCP Physician Assistant; Visit Provider Physician Assistant | DX: I10 Essential (primary) hypertension (principal); E78.00 Pure hypercholesterolemia, unspecified; B35.1 Tinea unguium; Z78.0 Asymptomatic menopausal state; R14.0 Abdominal distension (gaseous); Z13.31 Encounter for screening for depression; Z13.39 Encounter for screening examination for other mental health and behavioral disorders | CPT/HCPCS: 96127; 99212 ==

== ENCOUNTER 2025-11-04 10:23 | Outpatient (REF) | payer MEDICARE, SELFPAY ==
--- NOTE | ~2025-11-04 | US_ITS ---
CLINICAL HISTORY: R14.0 - Abdominal distension (gaseous) US abdomen complete Comparison: None provided Findings: The visualized pancreas is normal. The aorta and inferior vena cava are normal caliber. The appearance of the liver suggests fatty infiltration. There is minimal, possibly physiologic intrahepatic bile duct dilatation. The common duct is 11 mm in diameter. There are no abnormal findings in the gallbladder fossa there is no sonographic Barron sign. The main portal vein is antegrade. The right kidney is 13.2 cm in length. The left kidney is 11.1 cm in length. The spleen is normal. No ascites. IMPRESSION: 1. Hepatic steatosis. This document has been electronically signed by: Brooks Pierre MD on 11/05/2025 10:51:02
== END 2025-11-04 10:24 | disposition home or self-care (01) ==
LOC: HO.HMGCX 10:23
PROVIDERS: PCP Physician Assistant; Visit Provider Physician Assistant
DX: R14.0 Abdominal distension (gaseous) (principal)
CPT/HCPCS: 76700

== ENCOUNTER → 2025-11-04 10:36 | Outpatient (BNV) | payer MEDICARE, SELFPAY | PROVIDERS: PCP Physician Assistant; Visit Provider Specialist | DX: K76.0 Fatty (change of) liver, not elsewhere classified (principal) | CPT/HCPCS: 76700 ==

== ENCOUNTER 2025-11-08 10:36 | Outpatient (AMB) | payer MEDICARE, SELFPAY ==
--- NOTE | 2025-11-08 11:03 | MHC.OFFVIS ---
Intake Visit Reasons: INJ- R knee cortisone inj last 02/18/25 Intake Note: Maria Antonia is a 70 year old female who presents today for a repeat Right Knee Cortisone injection. The last injection was administered 02/18/25, she reports good relief and would like to repeat today. Addionally she notes that she is having progessivly worsening difficulty when standing from a seated position. Allergies amoxicillin (AMOXICILLIN) Allergy (Severe, Verified 09/28/25 14:02) severe vomiting pumpkin Allergy (Intermediate, Verified 09/28/25 14:02) Difficulty Breathing adhesive tape Adverse Reaction (Intermediate, Verified 09/28/25 14:02) rash hydrocodone Adverse Reaction (Intermediate, Verified 09/28/25 14:02) dizziness, disorientation vicodin Allergy (Intermediate, Uncoded 09/28/25 14:02) Dizziness HPI HPI INJ- R knee cortisone inj last 02/18/25: Details: Maria Antonia is a 70 year old female who presents today for a repeat Right Knee Cortisone injection. The last injection was administered 02/18/25, she reports good relief and would like to repeat today. Addionally she notes that she is having progessivly worsening difficulty when standing from a seated position. HPI Comments Details: Interval History The patient is a 70-year-old female presenting with follow-up for right knee cortisone injection. She reports that she can walk for miles without difficulty, but experiences pain when sitting for extended periods or climbing stairs. The patient mentions that she walked 8,676 steps last Saturday and regularly averages 3,000 to 4,000 steps a day, indicating she stays active. She notes that the cortisone injections, administered approximately every six months, have been helpful in managing her knee pain. The patient plans to travel to [place] for [place] and intends to walk the [place] daily with her . Results [facility] Medical History (Updated 09/29/25 @ 07:37 by Chiki Wei PA-C) Hyperlipidemia FRANCISCO (obstructive sleep apnea) Lumbar herniated disc Hypoglycemia GERD (gastroesophageal reflux disease) COVID-19 vaccine series completed Macular degeneration Fluid retention in legs Pancreatitis Renal calculi Osteoarthritis Basal cell carcinoma Hiatal hernia Scoliosis Anxiety Depression Hypertension Surgical History History of right hip replacement (2020) History of esophagogastroduodenoscopy (EGD) H/O colonoscopy History of nasal septoplasty History of total left knee replacement History of section History of cholecystectomy History of hysterectomy Family History Father Cancer Mother Rheumatoid arthritis Daughter Crohn's colitis Social History Housing: House Are you a primary care team coordinator scheduler to a significant other at home: No Do you presently have visiting nurse or other home services: No Comment: advised to remove before surgery Patient Tobacco Use Status: Former Tobacco user Tobacco use type: Cigarette e-Cigarette/Vaping Use: Never Used Second Hand Smoke Exposure: Yes Advance Directives Date on File: 06/11/14 service: No 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 No effusion. 0-130 degrees of motion. Retropatellar tenderness to palpation right knee. Office Procedures Joint Inj/Aspir; Non-Pain Clin Joint Injection/Drain Details: Injected 1 mL of Decadron and 3 mL 1% lidocaine and 3 mL of 0.25% Marcaine. Site was prepped using aseptic technique. Patient tolerated the procedure well. Shoulders, Hips, Knees, Knee Large Joint Injection : Right Knee Coding Procedure code (CPT) selection complete Assessment & Plan Assessment & Plan (1) Primary osteoarthritis of right knee: Code(s): M17.11 - Unilateral primary osteoarthritis, right knee Category: Medical Plan Plan 1. Right Knee Pain Due To Arthritis Administer cortisone injection to the right knee to alleviate pain associated with arthritis. Advise the patient to continue her regular walking routine as tolerated, avoiding activities that exacerbate knee pain, such as prolonged sitting or stair climbing. I injected her right knee today and she can follow up in 3 months for repeat injection or 6 months if she prefers. Discussion Notes During the visit, the patient and I discussed the ongoing management of her right knee arthritis, including the benefits of cortisone injections in alleviating pain and improving mobility. The patient expressed understanding of the treatment plan and agreed to continue with the current management strategy, including maintaining her active lifestyle while avoiding activities that exacerbate her symptoms. Coding Level of Care Code Est Pt Level 3 (59620) Diagnoses Primary osteoarthritis of right knee M17.11 CPT Codes Shoulders, Hips, Knees, - Knee Large Joint Injection : Right Knee ([id number])
== END 2025-11-08 11:47 | disposition home or self-care (01) ==
LOC: HO.HOS 10:37
PROVIDERS: PCP Physician Assistant; Visit Provider Orthopaedic Surgery
DX: M17.11 Unilateral primary osteoarthritis, right knee (principal)
CPT/HCPCS: 20610; 99213

== ENCOUNTER → 2025-11-08 10:36 | Outpatient (BNVA) | payer MEDICARE, SELFPAY | PROVIDERS: PCP Physician Assistant; Visit Provider Orthopaedic Surgery | DX: M17.11 Unilateral primary osteoarthritis, right knee (principal) | CPT/HCPCS: 20610; 99212; J0665; J1100; J2003 ==